=== PATIENT | male | born 1955 | race Caucasian/White ===

== ENCOUNTER 2017-11-01 12:03 | Inpatient (IN) | payer OTHER ==
[2017-11-01 12:14] VITALS: BMI 34.2
--- NOTE | 2017-11-01 14:22 | HP ---
CIWA Score - CIWA Score Nausea/Vomitin Muscle Tremors: 3 Anxiety: 3 Agitation: 3 Paroxysmal Sweats: 1-Minimal Palms Moist Orientation: 0-Oriented Tacttile Disturbances: 2-Mild Itch/Numbness/Burn Auditory Disturbances: 2-Mild Harshness/Frighten Visual Disturbances: 0-None Headache: 2-Mild CIWA-Ar Total Score: 19 Admission ROS BHS - HPI Chief Complaint: i need help to stop drinking alcohol Allergies/Adverse Reactions: Allergies Allergy/AdvReac Type Severity Reaction Status Date / Time Iodinated Contrast- Oral and Allergy Severe Verified 11/01/17 14:51 IV Dye IV dye Allergy Severe Rash Uncoded 11/01/17 12:55 History of Present Illness: this 62 years old male with alcohol dependence,seeking detox,last treatment 08/13 to 06/10/15 [facility] not completed syncope htn,type 2 dm,bipolar disorder,asthma,hypercholesteolemia longest period of sobriety 2 years - Ebola screening Have you traveled outside of the country in the last 21 days: No Have you had contact with anyone from an Ebola affected area: No Have you been sick,other than usual withdrawal symptoms: No Do you have a fever: No - Review of Systems Constitutional: Loss of Appetite, Malaise, Night Sweats, Changes in sleep, Weakness EENT: reports: Nose Congestion Respiratory: reports: No Symptoms reported, Other (asthma hisotory) Cardiac: reports: No Symptoms Reported GI: reports: Diarrhea, Nausea, Vomiting, Abdominal cramping : reports: No Symptoms Reported Musculoskeletal: reports: Back Pain, Muscle Pain Integumentary: reports: Dryness Neuro: reports: Headache, Tremors Endocrine: reports: No Symptoms Reported Hematology: reports: No Symptoms Reported Psychiatric: reports: other (bipoloar disorder) Patient History - Patient Medical History Hx Anemia: No Hx Asthma: Yes Hx Chronic Obstructive Pulmonary Disease (COPD): No Hx Cancer: No Hx Cardiac Disorders: No Hx Congestive Heart Failure: No Hx Hypertension: Yes Hx Hypercholesterolemia: Yes (ON CRESTOR 10 MG HS) Hx Pacemaker: No HX Cerebrovascular Accident: No Hx Seizures: No Hx Dementia: No Hx Diabetes: Yes (NIDDM) Hx Gastrointestinal Disorders: No Hx Liver Disease: No Hx Genitourinary Disorders: No Hx Sexually Transmitted Disorders: No Hx Renal Disease (ESRD): No Hx Thyroid Disease: No Hx Human Immunodeficiency Virus (HIV): No (NEGATIVE HX last 2015) Hx Hepatitis C: No (REQUESTS TESTING ) Hx Depression: Yes Hx Suicide Attempt: No Hx Bipolar Disorder: Yes (seroquel 100mg hs) Hx Schizophrenia: No Other Medical History: no suicidal,no homicidal - Patient Surgical History Past Surgical History: Yes Hx Neurologic Surgery: No Hx Cataract Extraction: No Hx Cardiac Surgery: No Hx Lung Surgery: No Hx Breast Surgery: No Hx Breast Biopsy: No Hx Abdominal Surgery: Yes (bilateral inguinal hernia reapir in [facility] in 1984) Hx Appendectomy: Yes (1984 2 [facility]) Hx Cholecystectomy: No Hx Genitourinary Surgery: No Hx Section: No Hx Orthopedic Surgery: No Other Surgical History: left ankle surgery with titanium plate 2009 @ [facility] Anesthesia Reaction: No - PPD History Previous Implant?: Yes Documented Results: Negative w/proof Implanted On Prior [facility] Admission?: Yes Date: 12/03/14 Results: 0 mm PPD to be Administered?: Yes - Smoking Cessation Smoking history: Never smoked Have you smoked in the past 12 months: No Aproximately how many cigarettes per day: 0 Cigars Per Day: 0 Hx Chewing Tobacco Use: No Initiated information on smoking cessation: No - Substance & Tx. History Hx Alcohol Use: Yes Hx Substance Use: No Substance Use Type: Alcohol Hx Substance Use Treatment: Yes ([facility] 06/08/15 to 06/10/15) - Substances Abused Alcohol-beer Route: Oral Frequency: Daily Amount used: 2-6 pks. Age of first use: 14 Date of Last Use: 11/01/17 Family Disease History - Family Disease History Family Disease History: Diabetes: Mother (,lung cancer), Heart Disease: Father (), Mother, CA: Mother, Respiratory: Daughter, Other: Brother ( alcohol dependent ), Sister (alcohol dependent ) Admission Physical Exam BHS - Vital Signs Vital Signs: Vital Signs - 24 hr 11/01/17 12:07 Temperature 97.9 F Pulse Rate 113 H Respiratory 18 Rate Blood Pressure 157/100 - Physical General Appearance: Yes: Moderate Distress, Tremorous, Irritable, Sweating, Anxious HEENTM: Yes: Within Normal Limits, REED, Pharynx Normal Respiratory: Yes: Lungs Clear, Normal Breath Sounds, No Respiratory Distress, Other (asthma hstory) Neck: Yes: Within Normal Limits, Supple, Trachea in good position Breast: Yes: Within Normal Limits Cardiology: Yes: Within Normal Limits, Regular Rhythm, Regular Rate, S1, S2 Abdominal: Yes: Within Normal Limits, Normal Bowel Sounds, Non Tender, Flat, Soft, Surgical Scar Genitourinary: Yes: Within Normal Limits Back: Yes: Muscle Spasm Musculoskeletal: Yes: full range of Motion, Back pain, Muscle Pain Extremities: Yes: Tremors 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 NML intact, Fully Oriented, Alert, Motor Strength 5/5 Integumentary: Yes: Dry Lymphatic: Yes: Within Normal Limits - Diagnostic (1) Alcohol dependence with uncomplicated withdrawal Current Visit: Yes Status: Acute (2) HTN (hypertension) Current Visit: No Status: Chronic (3) Hyperlipidemia Current Visit: No Status: Chronic (4) Obesity Current Visit: No Status: Chronic (5) Type 2 diabetes mellitus Current Visit: No Status: Chronic Comment: (6) Asthma Current Visit: No Status: Chronic (7) Hypercholesterolemia Current Visit: Yes Status: Acute (8) Bipolar disorder (manic depression) Current Visit: Yes Status: Acute Cleared for Admission [facility] - Detox or Rehab [facility] Level of Care: Medically Managed Detox Regimen/Protocol: Librium [facility] Breath Alcohol Content Breath Alcohol Content: 0.045 Urine Drug Screen - Results Drug Screen Negative: No Urine Drug Screen Results: BZO-Benzodiazepines
[2017-11-01] MEDS ORDERED: MAGNESIUM CITRATE 300 ML BOTTLE PO PRN (14:36)
[2017-11-01] MEDS ORDERED: IBUPROFEN 400 MG TABLET (FP) PO PRN (14:36)
[2017-11-01] MEDS ORDERED: LOPERAMIDE HCL 2 MG CAPSULE PO PRN (14:36)
[2017-11-01] MEDS ORDERED: P-EPHED 60MG/TRIPROLIDI 2.5MG TABLET PO PRN (14:36)
[2017-11-01] MEDS ORDERED: ACETAMINOPHEN 325 MG TABLET (FP) PO PRN (14:36)
[2017-11-01] MEDS ORDERED: MAG HYDROX/AL HYDROX/SIMETH 30 ML UNIT-DOSE CUP PO PRN (14:36)
[2017-11-01] MEDS ORDERED: MAGNESIUM HYDROX 2400MG/30ML ORAL SUSPENSION 30 ML CUP PO PRN (14:36)
[2017-11-01] MEDS ORDERED: guaiFENesin/D-METHORPHAN HB 10 ML UNIT-DOSE CUPS PO PRN (14:36)
[2017-11-01] MEDS ORDERED: hydrOXYzine PAMOATE 50 MG CAPSULE (FP) PO PRN (14:36)
[2017-11-01] MEDS ORDERED: MENTHOL/PHENOL 1 EACH UD MM PRN (14:36)
[2017-11-01] MEDS ORDERED: chlordiazePOXIDE HCL 25 MG CAPSULE PO PRN (14:36)
[2017-11-01] MEDS: metFORMIN HCL 500 MG TABLET (FP) PO SCH (18:45)
[2017-11-01] MEDS: chlordiazePOXIDE HCL 25 MG CAPSULE PO SCH ×2 (18:46→22:13)
[2017-11-01 18:52] LABS: URINE APPEARANCE SLCLOUDY; URINE BILIRUBIN NEGATIVE (NEGATIVE); URINE BLOOD 1+ (NEGATIVE); URINE COLOR LTYELLOW; URINE GLUCOSE (UA) 1+ (NEGATIVE); URINE KETONE NEGATIVE (NEGATIVE); URINE LEUK ESTERASE NEGATIVE (NEGATIVE); URINE NITRITE NEGATIVE (NEGATIVE); URINE PROTEIN NEGATIVE (NEGATIVE); URINE UROBILINOGEN NEGATIVE mg/dL (0.2-1.0)
[2017-11-01] MEDS: LISINOPRIL 20 MG TABLET (FP) PO SCH (20:10)
[2017-11-01 20:28] LABS: URINE MUCUS RARE
[2017-11-01] MEDS: THIAMINE HCL 100 MG TABLET (FP) PO SCH (22:13)
[2017-11-01] MEDS: ROSUVASTATIN CA 10 MG TABLET (FP) PO SCH (22:13)
[2017-11-02] MEDS: chlordiazePOXIDE HCL 25 MG CAPSULE PO SCH ×4 (05:40→22:13)
[2017-11-02] MEDS: metFORMIN HCL 500 MG TABLET (FP) PO SCH ×2 (07:19→17:14)
--- NOTE | 2017-11-02 09:33 | CONSULT ---
[facility] Psychiatric Consult - Data Date of interview: 11/02/17 Admission source: [facility] Identifying data: Pt. is a 62 year male, father of two, a and on SSI. This is one of multiple admissions for patient. Pt. admitted to for alcohol dependence. Substance Abuse History: Alcohol- First used: 14 Frequency: Daily Amount: 2-6 24oz beers Last used: 11/01/2017 Medical History: Hypertension, Asthma, CHF, Hypercholesterolemia, diabetes, bilateral inguinal hernia repair in 1984, Left ankle surgery with titanium plate in 2009. Psychiatric History: Patient's first encounter with a psychiatrist was in 1971 at [facility] after his girlfriend left him and patient attempted to jump out the window. Pt. reports another suicide attempt in 1978 in which he again attempted to jump out the window after another women left him. States he has also been admitted to [facility], [facility], and [facility] . States he was diagnosed with bipolar disorder and schizophrenia at [facility] in 2006. Claims he is currently seeing a psychiatrist at [facility] and is prescribed seroquel 50mg qhs. Pt. refuses to resume seroquel at this time. Pt stated, " i want to get everything else out my system." Pt. also reports a h/o incarceration for 15 years. Pt. currently denies suicidal and homicidal ideation. Physical/Sexual Abuse/Trauma History: Denies. Mental Status Exam - Mental Status Exam Alert and Oriented to: Time, Place, Person Cognitive Function: Good Patient Appearance: Well Groomed Mood: Hopeful Affect: Mood Congruent Patient Behavior: Appropriate, Cooperative Speech Pattern: Appropriate Voice Loudness: Normal Thought Process: Goal Oriented Thought Disorder: Not Present Hallucinations: Denies Suicidal Ideation: Denies Homicidal Ideation: Denies Insight/Judgement: Poor Sleep: Fair Appetite: Fair Muscle strength/Tone: Mild Hypertonicity Gait/Station: Antalgic Psychiatric Findings - Problem List ([place] 1, 2,3) (1) Alcohol dependence with uncomplicated withdrawal Current Visit: Yes Status: Acute (2) Alcohol dependence Current Visit: Yes Status: Acute (3) Alcohol dependence, continuous Current Visit: Yes Status: Acute (4) Bipolar disorder Current Visit: No Status: Chronic Comment: Self reports (5) Schizophrenia Current Visit: No Status: Chronic Comment: Self reports. - Initial Treatment Plan Initial Treatment Plan: Psychoeducation provided. Detoxification in progress. Pt. refuses to resume seroquel 50mg qhs at this time. Will continue to monitor.
[2017-11-02 09:46] LABS: CHLORIDE 100 mmol/L (98-107); POTASSIUM 3.7 mmol/L (3.5-5.1); SODIUM 135 mmol/L (136-145)
[2017-11-02 09:54] LABS: ALBUMIN 4.2 g/dl (3.4-5.0); ALK PHOS 106 U/L (45-117); ANION GAP 11 (8-16); BILIRUBIN,TOTAL 0.9 mg/dL (0.2-1.0); BLOOD UREA NITROGEN 9 mg/dL (7-18); CALCIUM 8.3 mg/dL (8.5-10.1); CO2 24 mmol/L (21-32); CREATININE 0.8 mg/dL (0.7-1.3); GLUCOSE,RANDOM 150 mg/dL (74-106); SGOT/AST 50 U/L (15-37); SGPT/ALT 42 U/L (12-78); TOT PROT 7.8 g/dl (6.4-8.2)
[2017-11-02] MEDS ORDERED: amLODIPine BESYLATE 10 MG TABLET (FP) PO SCH (10:00)
[2017-11-02 10:21] LABS: HEMATOCRIT 45.6 % (35.4-49); HEMOGLOBIN 15.3 GM/dL (11.7-16.9); MCH 31.4 pg (25.7-33.7); MCHC 33.7 g/dl (32.0-35.9); MEAN CELL VOLUME 93.4 fl (80-96); MEAN PLT VOLUME 7.7 fl (7.5-11.1); PLATELET COUNT 278 K/MM3 (134-434); RBC 4.87 M/mm3 (4.00-5.60); RDW 12.5 % (11.9-15.9); WHITE BLOOD COUNT 7.5 K/mm3 (4.0-10.0)
[2017-11-02] MEDS: LISINOPRIL 20 MG TABLET (FP) PO SCH (10:24)
[2017-11-02] MEDS: ALBUTEROL SO4 18 GM HFA INHALER IH PRN (10:24)
[2017-11-02] MEDS: amLODIPine BESYLATE 10 MG TABLET (FP) PO SCH (10:24)
[2017-11-02] MEDS: ASPIRIN 81 MG CHEWABLE TABLETS PO SCH (10:24)
[2017-11-02] MEDS: PRENATAL VITAMINS W/ FOLIC ACID TABLET (FP) PO SCH (10:24)
--- NOTE | 2017-11-02 10:25 | PN ---
[facility] CIWA - CIWA Score Nausea/Vomitin-No Nausea/No Vomiting Muscle Tremors: 4-Moderate,w/Arms Extend Anxiety: 4-Mod. Anxious/Guarded Agitation: 4-Moderately Restless Paroxysmal Sweats: 1-Minimal Palms Moist Orientation: 0-Oriented Tacttile Disturbances: 3-Moderate Itch/Numb/Burn Auditory Disturbances: 0-None Visual Disturbances: 0-None Headache: 0-None Present CIWA-Ar Total Score: 16 BHS Progress Note (SOAP) Subjective: ANXIETY, SWEATS,TREMORS,MUSCLE/BODY ACHES, INTERMITTENT SLEEP. Objective: 11/02/17 10:24 Vital Signs Temperature 96.9 F L 11/02/17 08:51 Pulse Rate 100 H 11/02/17 08:51 Respiratory Rate 18 11/02/17 08:51 Blood Pressure 150/91 11/02/17 08:51 O2 Sat by Pulse Oximetry (%) Laboratory Last Values Sodium 135 mmol/L (136-145) L 11/02/17 05:45 Potassium 3.7 mmol/L (3.5-5.1) 11/02/17 05:45 Chloride 100 mmol/L (98-107) 11/02/17 05:45 Carbon Dioxide 24 mmol/L (21-32) 11/02/17 05:45 Anion Gap 11 (8-16) 11/02/17 05:45 BUN 9 mg/dL (7-18) D 11/02/17 05:45 Creatinine 0.8 mg/dL (0.7-1.3) 11/02/17 05:45 Creat Clearance w eGFR > 60 (>60) 11/02/17 05:45 POC Glucometer 219 UNITS (80-120) 11/02/17 05:42 Random Glucose 150 mg/dL (74-106) H D 11/02/17 05:45 Calcium 8.3 mg/dL (8.5-10.1) L 11/02/17 05:45 Total Bilirubin 0.9 mg/dL (0.2-1.0) D 11/02/17 05:45 AST 50 U/L (15-37) H D 11/02/17 05:45 ALT 42 U/L (12-78) D 11/02/17 05:45 Alkaline Phosphatase 106 U/L (45-117) D 11/02/17 05:45 Total Protein 7.8 g/dl (6.4-8.2) 11/02/17 05:45 Albumin 4.2 g/dl (3.4-5.0) 11/02/17 05:45 Urine Color Ltyellow 11/01/17 15:40 Urine Appearance Slcloudy 11/01/17 15:40 Urine pH 5.0 (5.0-8.0) 11/01/17 15:40 Ur Specific [place] 1.009 (1.001-1.035) 11/01/17 15:40 Urine Protein Negative (NEGATIVE) 11/01/17 15:40 Urine Glucose (UA) 1+ (NEGATIVE) H 11/01/17 15:40 Urine Ketones Negative (NEGATIVE) 11/01/17 15:40 Urine Blood 1+ (NEGATIVE) H 11/01/17 15:40 Urine Nitrite Negative (NEGATIVE) 11/01/17 15:40 Urine Bilirubin Negative (NEGATIVE) 11/01/17 15:40 Urine Urobilinogen Negative mg/dL (0.2-1.0) 11/01/17 15:40 Ur Leukocyte Esterase Negative (NEGATIVE) 11/01/17 15:40 Urine WBC (Auto) <1 /hpf (3-5) 11/01/17 15:40 Urine RBC (Auto) None /hpf (0-3) 11/01/17 15:40 Urine Mucus Rare 11/01/17 15:40 Assessment: 11/02/17 10:25 WITHDRAWAL SX Plan: CONTINUE DETOX
[2017-11-02] MEDS ORDERED: FLU VACCINE QUAD 60 MCG/0.5 ML (MDV 17-18) IM ONE (12:00)
--- NOTE | 2017-11-02 12:34 | EKG ---
Test Reason : Blood Pressure : / mmHG Vent. Rate : 098 BPM Atrial Rate : 098 BPM P-R Int : 142 ms QRS Dur : 092 ms QT Int : 368 ms P-R-T Axes : 062 -50 049 degrees QTc Int : 469 ms NORMAL SINUS RHYTHM INCOMPLETE RIGHT BUNDLE BRANCH BLOCK LEFT ANTERIOR FASCICULAR BLOCK ABNORMAL ECG NO PREVIOUS ECGS AVAILABLE Confirmed by BON ANGULO MD ([id number]) on 11/02/2017 12:34:16 PM Referred By: Confirmed By:BON ANGULO MD
[2017-11-02] MEDS: THIAMINE HCL 100 MG TABLET (FP) PO SCH (22:13)
[2017-11-02] MEDS: ROSUVASTATIN CA 10 MG TABLET (FP) PO SCH (22:13)
[2017-11-03] MEDS: ALBUTEROL SO4 18 GM HFA INHALER IH PRN ×3 (02:21→17:19)
[2017-11-03] MEDS: chlordiazePOXIDE HCL 25 MG CAPSULE PO SCH ×2 (05:13→10:21)
[2017-11-03] MEDS: metFORMIN HCL 500 MG TABLET (FP) PO SCH ×2 (07:17→17:17)
[2017-11-03] MEDS: ASPIRIN 81 MG CHEWABLE TABLETS PO SCH (10:20)
[2017-11-03] MEDS: PRENATAL VITAMINS W/ FOLIC ACID TABLET (FP) PO SCH (10:20)
[2017-11-03] MEDS: amLODIPine BESYLATE 10 MG TABLET (FP) PO SCH (10:21)
[2017-11-03] MEDS: LISINOPRIL 20 MG TABLET (FP) PO SCH ×2 (10:21→22:15)
--- NOTE | 2017-11-03 11:54 | PN ---
[facility] CIWA - CIWA Score Nausea/Vomitin-No Nausea/No Vomiting Muscle Tremors: 4-Moderate,w/Arms Extend Anxiety: 4-Mod. Anxious/Guarded Agitation: 4-Moderately Restless Paroxysmal Sweats: 1-Minimal Palms Moist Tacttile Disturbances: 3-Moderate Itch/Numb/Burn Auditory Disturbances: 0-None Visual Disturbances: 0-None Headache: 1-Very Mild BHS Progress Note (SOAP) Subjective: ANXIETY,SWEATS,LIGHTHEADED, FATIGUE. Objective: 11/03/17 11:53 Vital Signs Temperature 97.7 F 11/03/17 09:25 Pulse Rate 110 H 11/03/17 09:25 Respiratory Rate 20 11/03/17 09:25 Blood Pressure 175/95 11/03/17 09:25 O2 Sat by Pulse Oximetry (%) Laboratory Last Values WBC 7.5 K/mm3 (4.0-10.0) 11/02/17 05:45 RBC 4.87 M/mm3 (4.00-5.60) 11/02/17 05:45 Hgb 15.3 GM/dL (11.7-16.9) 11/02/17 05:45 Hct 45.6 % (35.4-49) 11/02/17 05:45 MCV 93.4 fl (80-96) 11/02/17 05:45 MCH 31.4 pg (25.7-33.7) 11/02/17 05:45 MCHC 33.7 g/dl (32.0-35.9) 11/02/17 05:45 RDW 12.5 % (11.9-15.9) 11/02/17 05:45 Plt Count 278 K/MM3 (134-434) 11/02/17 05:45 MPV 7.7 fl (7.5-11.1) 11/02/17 05:45 Sodium 135 mmol/L (136-145) L 11/02/17 05:45 Potassium 3.7 mmol/L (3.5-5.1) 11/02/17 05:45 Chloride 100 mmol/L (98-107) 11/02/17 05:45 Carbon Dioxide 24 mmol/L (21-32) 11/02/17 05:45 Anion Gap 11 (8-16) 11/02/17 05:45 BUN 9 mg/dL (7-18) D 11/02/17 05:45 Creatinine 0.8 mg/dL (0.7-1.3) 11/02/17 05:45 Creat Clearance w eGFR > 60 (>60) 11/02/17 05:45 POC Glucometer 168 UNITS (80-120) 11/03/17 05:12 Random Glucose 150 mg/dL (74-106) H D 11/02/17 05:45 Calcium 8.3 mg/dL (8.5-10.1) L 11/02/17 05:45 Total Bilirubin 0.9 mg/dL (0.2-1.0) D 11/02/17 05:45 AST 50 U/L (15-37) H D 11/02/17 05:45 ALT 42 U/L (12-78) D 11/02/17 05:45 Alkaline Phosphatase 106 U/L (45-117) D 11/02/17 05:45 Total Protein 7.8 g/dl (6.4-8.2) 11/02/17 05:45 Albumin 4.2 g/dl (3.4-5.0) 11/02/17 05:45 Urine Color Ltyellow 11/01/17 15:40 Urine Appearance Slcloudy 11/01/17 15:40 Urine pH 5.0 (5.0-8.0) 11/01/17 15:40 Ur Specific [place] 1.009 (1.001-1.035) 11/01/17 15:40 Urine Protein Negative (NEGATIVE) 11/01/17 15:40 Urine Glucose (UA) 1+ (NEGATIVE) H 11/01/17 15:40 Urine Ketones Negative (NEGATIVE) 11/01/17 15:40 Urine Blood 1+ (NEGATIVE) H 11/01/17 15:40 Urine Nitrite Negative (NEGATIVE) 11/01/17 15:40 Urine Bilirubin Negative (NEGATIVE) 11/01/17 15:40 Urine Urobilinogen Negative mg/dL (0.2-1.0) 11/01/17 15:40 Ur Leukocyte Esterase Negative (NEGATIVE) 11/01/17 15:40 Urine WBC (Auto) <1 /hpf (3-5) 11/01/17 15:40 Urine RBC (Auto) None /hpf (0-3) 11/01/17 15:40 Urine Mucus Rare 11/01/17 15:40 RPR Titer Nonreactive (NONREACTIVE) 11/02/17 05:45 Hepatitis C Antibody <0.1 s/co ratio (0.0-0.9) 11/01/17 15:00 Assessment: 11/03/17 11:53 WITHDRAWAL SX Plan: CONTINUE DETOX INCREASE PO FLUIDS.
[2017-11-03] MEDS: chlordiazePOXIDE 5 MG CAPSULE PO SCH ×2 (17:17→22:16)
[2017-11-03] MEDS: THIAMINE HCL 100 MG TABLET (FP) PO SCH (22:15)
[2017-11-03] MEDS: ROSUVASTATIN CA 10 MG TABLET (FP) PO SCH (22:15)
[2017-11-04] MEDS: chlordiazePOXIDE 5 MG CAPSULE PO SCH ×2 (05:23→10:09)
--- NOTE | 2017-11-04 07:34 | PN ---
[facility] Progress Note Note: Patient was seen and evaluated at bedside. He complained of burning in his chest / chest pain radiating to his stomach after he took his medication and worsened when he lay down in his bed. Denies radiation to his arm, SOB, dizziness or any other symptom. EKG ordered and was normal sinus rhythm. Mylanta given as ordered with relieve verbalized by patient.
[2017-11-04] MEDS: metFORMIN HCL 500 MG TABLET (FP) PO SCH ×2 (07:55→17:26)
[2017-11-04] MEDS: amLODIPine BESYLATE 10 MG TABLET (FP) PO SCH (10:09)
[2017-11-04] MEDS: ASPIRIN 81 MG CHEWABLE TABLETS PO SCH (10:09)
[2017-11-04] MEDS: LISINOPRIL 20 MG TABLET (FP) PO SCH ×2 (10:09→22:22)
[2017-11-04] MEDS: PRENATAL VITAMINS W/ FOLIC ACID TABLET (FP) PO SCH (10:09)
[2017-11-04] MEDS: ALBUTEROL SO4 18 GM HFA INHALER IH PRN (10:47)
--- NOTE | 2017-11-04 13:37 | EKG ---
Test Reason : Blood Pressure : / mmHG Vent. Rate : 084 BPM Atrial Rate : 084 BPM P-R Int : 150 ms QRS Dur : 080 ms QT Int : 382 ms P-R-T Axes : 057 -37 066 degrees QTc Int : 451 ms NORMAL SINUS RHYTHM LEFT AXIS DEVIATION ABNORMAL ECG WHEN COMPARED WITH ECG OF 01-NOV-2017 19:50, NONSPECIFIC T WAVE ABNORMALITY NOW EVIDENT IN LATERAL LEADS Confirmed by LEIDY CANO MD ([id number]) on 11/04/2017 1:37:15 PM Referred By: Confirmed By:LEIDY CANO MD
--- NOTE | 2017-11-04 13:48 | PN ---
S Progress Note (SOAP) Subjective: Mild epigastric discomfort, sleep interruption Objective: 11/04/17 13:48 Vital Signs 11/04/17 11/04/17 06:20 09:47 Temperature 98.3 F 95.5 F L Pulse Rate 80 100 H Respiratory 20 18 Rate Blood Pressure 131/73 137/76 Laboratory Last Values WBC 7.5 K/mm3 (4.0-10.0) 11/02/17 05:45 RBC 4.87 M/mm3 (4.00-5.60) 11/02/17 05:45 Hgb 15.3 GM/dL (11.7-16.9) 11/02/17 05:45 Hct 45.6 % (35.4-49) 11/02/17 05:45 MCV 93.4 fl (80-96) 11/02/17 05:45 MCH 31.4 pg (25.7-33.7) 11/02/17 05:45 MCHC 33.7 g/dl (32.0-35.9) 11/02/17 05:45 RDW 12.5 % (11.9-15.9) 11/02/17 05:45 Plt Count 278 K/MM3 (134-434) 11/02/17 05:45 MPV 7.7 fl (7.5-11.1) 11/02/17 05:45 Sodium 135 mmol/L (136-145) L 11/02/17 05:45 Potassium 3.7 mmol/L (3.5-5.1) 11/02/17 05:45 Chloride 100 mmol/L (98-107) 11/02/17 05:45 Carbon Dioxide 24 mmol/L (21-32) 11/02/17 05:45 Anion Gap 11 (8-16) 11/02/17 05:45 BUN 9 mg/dL (7-18) D 11/02/17 05:45 Creatinine 0.8 mg/dL (0.7-1.3) 11/02/17 05:45 Creat Clearance w eGFR > 60 (>60) 11/02/17 05:45 POC Glucometer 164 UNITS (80-120) 11/04/17 05:24 Random Glucose 150 mg/dL (74-106) H D 11/02/17 05:45 Calcium 8.3 mg/dL (8.5-10.1) L 11/02/17 05:45 Total Bilirubin 0.9 mg/dL (0.2-1.0) D 11/02/17 05:45 AST 50 U/L (15-37) H D 11/02/17 05:45 ALT 42 U/L (12-78) D 11/02/17 05:45 Alkaline Phosphatase 106 U/L (45-117) D 11/02/17 05:45 Total Protein 7.8 g/dl (6.4-8.2) 11/02/17 05:45 Albumin 4.2 g/dl (3.4-5.0) 11/02/17 05:45 Urine Color Ltyellow 11/01/17 15:40 Urine Appearance Slcloudy 11/01/17 15:40 Urine pH 5.0 (5.0-8.0) 11/01/17 15:40 Ur Specific [place] 1.009 (1.001-1.035) 11/01/17 15:40 Urine Protein Negative (NEGATIVE) 11/01/17 15:40 Urine Glucose (UA) 1+ (NEGATIVE) H 11/01/17 15:40 Urine Ketones Negative (NEGATIVE) 11/01/17 15:40 Urine Blood 1+ (NEGATIVE) H 11/01/17 15:40 Urine Nitrite Negative (NEGATIVE) 11/01/17 15:40 Urine Bilirubin Negative (NEGATIVE) 11/01/17 15:40 Urine Urobilinogen Negative mg/dL (0.2-1.0) 11/01/17 15:40 Ur Leukocyte Esterase Negative (NEGATIVE) 11/01/17 15:40 Urine WBC (Auto) <1 /hpf (3-5) 11/01/17 15:40 Urine RBC (Auto) None /hpf (0-3) 11/01/17 15:40 Urine Mucus Rare 11/01/17 15:40 RPR Titer Nonreactive (NONREACTIVE) 11/02/17 05:45 Hepatitis C Antibody <0.1 s/co ratio (0.0-0.9) 11/01/17 15:00 Labs noted Assessment: 11/04/17 13:48 withdrawal sx Plan: continue detox
[2017-11-04] MEDS: chlordiazePOXIDE HCL 10 MG CAPSULE PO SCH ×2 (17:26→22:22)
[2017-11-04] MEDS: THIAMINE HCL 100 MG TABLET (FP) PO SCH (22:21)
[2017-11-04] MEDS: ROSUVASTATIN CA 10 MG TABLET (FP) PO SCH (22:22)
[2017-11-05] MEDS: chlordiazePOXIDE HCL 10 MG CAPSULE PO SCH (05:38)
[2017-11-05 06:21] VITALS: BP 148/75; PULSE 92; TEMP 97.3
[2017-11-05] MEDS: metFORMIN HCL 500 MG TABLET (FP) PO SCH (06:41)
--- NOTE | 2017-11-05 09:17 | DS ---
[facility] Detox Discharge Summary Admission Date: 11/01/17 Discharge Date: 11/05/17 - History Present History: Alcohol Dependence Pertinent Past History: HTN Type II DM Hyperlipidemia Asthma Hx. of Psych disorder - Physical Exam Results Vital Signs: Vital Signs Temperature 97.3 F L 11/05/17 06:20 Pulse Rate 92 H 11/05/17 06:20 Respiratory Rate 18 11/05/17 06:20 Blood Pressure 148/75 11/05/17 06:20 O2 Sat by Pulse Oximetry (%) Pertinent Admission Physical Exam Findings: Withdrawal sx. Laboratory Last Values WBC 7.5 K/mm3 (4.0-10.0) 11/02/17 05:45 RBC 4.87 M/mm3 (4.00-5.60) 11/02/17 05:45 Hgb 15.3 GM/dL (11.7-16.9) 11/02/17 05:45 Hct 45.6 % (35.4-49) 11/02/17 05:45 MCV 93.4 fl (80-96) 11/02/17 05:45 MCH 31.4 pg (25.7-33.7) 11/02/17 05:45 MCHC 33.7 g/dl (32.0-35.9) 11/02/17 05:45 RDW 12.5 % (11.9-15.9) 11/02/17 05:45 Plt Count 278 K/MM3 (134-434) 11/02/17 05:45 MPV 7.7 fl (7.5-11.1) 11/02/17 05:45 Sodium 135 mmol/L (136-145) L 11/02/17 05:45 Potassium 3.7 mmol/L (3.5-5.1) 11/02/17 05:45 Chloride 100 mmol/L (98-107) 11/02/17 05:45 Carbon Dioxide 24 mmol/L (21-32) 11/02/17 05:45 Anion Gap 11 (8-16) 11/02/17 05:45 BUN 9 mg/dL (7-18) D 11/02/17 05:45 Creatinine 0.8 mg/dL (0.7-1.3) 11/02/17 05:45 Creat Clearance w eGFR > 60 (>60) 11/02/17 05:45 POC Glucometer 212 UNITS (80-120) 11/05/17 05:37 Random Glucose 150 mg/dL (74-106) H D 11/02/17 05:45 Calcium 8.3 mg/dL (8.5-10.1) L 11/02/17 05:45 Total Bilirubin 0.9 mg/dL (0.2-1.0) D 11/02/17 05:45 AST 50 U/L (15-37) H D 11/02/17 05:45 ALT 42 U/L (12-78) D 11/02/17 05:45 Alkaline Phosphatase 106 U/L (45-117) D 11/02/17 05:45 Total Protein 7.8 g/dl (6.4-8.2) 11/02/17 05:45 Albumin 4.2 g/dl (3.4-5.0) 11/02/17 05:45 Urine Color Ltyellow 11/01/17 15:40 Urine Appearance Slcloudy 11/01/17 15:40 Urine pH 5.0 (5.0-8.0) 11/01/17 15:40 Ur Specific [place] 1.009 (1.001-1.035) 11/01/17 15:40 Urine Protein Negative (NEGATIVE) 11/01/17 15:40 Urine Glucose (UA) 1+ (NEGATIVE) H 11/01/17 15:40 Urine Ketones Negative (NEGATIVE) 11/01/17 15:40 Urine Blood 1+ (NEGATIVE) H 11/01/17 15:40 Urine Nitrite Negative (NEGATIVE) 11/01/17 15:40 Urine Bilirubin Negative (NEGATIVE) 11/01/17 15:40 Urine Urobilinogen Negative mg/dL (0.2-1.0) 11/01/17 15:40 Ur Leukocyte Esterase Negative (NEGATIVE) 11/01/17 15:40 Urine WBC (Auto) <1 /hpf (3-5) 11/01/17 15:40 Urine RBC (Auto) None /hpf (0-3) 11/01/17 15:40 Urine Mucus Rare 11/01/17 15:40 RPR Titer Nonreactive (NONREACTIVE) 11/02/17 05:45 Hepatitis C Antibody <0.1 s/co ratio (0.0-0.9) 11/01/17 15:00 Labs noted - Treatment Hospital Course: Detox Protocol Followed, Detoxed Safely, Responded well, Discharged Condition Good, Rehab Referral Accepted Patient has Accepted a Rehab Referral to: [facility] at [facility] - Medication Discharge Medications: Ambulatory Orders Albuterol Sulfate Inhaler - [Ventolin HFA Inhaler -] 2 inh PO Q4H PRN 08/14/14 Quetiapine Fumarate [Seroquel -] 50 mg PO HS #30 tablet 03/02/15 Aspirin [ASA -] 81 mg PO DAILY 06/08/15 Rosuvastatin [Crestor -] 10 mg PO HS 06/08/15 Amlodipine Besylate [Norvasc -] 10 mg PO DAILY 11/01/17 Metformin HCl [Glucophage -] 500 mg PO BID 11/01/17 - Diagnosis (1) Asthma Current Visit: No Status: Chronic (2) Bipolar disorder Current Visit: No Status: Chronic (3) Hyperlipidemia Current Visit: No Status: Chronic Qualifiers: Hyperlipidemia type: unspecified Qualified Code(s): E78.5 - Hyperlipidemia , unspecified (4) HTN (hypertension) Current Visit: Yes Status: Chronic Qualifiers: Hypertension type: essential hypertension Qualified Code(s): I10 - Essential (primary) hypertension (5) Type 2 diabetes mellitus Current Visit: Yes Status: Chronic Qualifiers: Diabetes mellitus complication status: without complication Diabetes mellitus siding applicator insulin use: without intermediate use Qualified Code(s): E11.9 - Type 2 diabetes mellitus without complications (6) Alcohol dependence with uncomplicated withdrawal Current Visit: Yes Status: Acute (7) Schizophrenia Current Visit: No Status: Chronic - AMA Did Patient Leave Against Medical Advice: No
== END 2017-11-05 09:58 | disposition home or self-care (01) | DRG 775 ==
LOC: YASAS 12:03 → Y3N 14:44
PROVIDERS: ADMIT Internal Medicine; ATTEND Internal Medicine
PROC: HZ2ZZZZ Detoxification Services for Substance Abuse Treatment (ICD-10-PCS; principal; 2017-11-01)
DX: F10.230 Alcohol dependence with withdrawal, uncomplicated (principal); F31.9 Bipolar disorder, unspecified; F25.9 Schizoaffective disorder, unspecified; I10 Essential (primary) hypertension; E78.5 Hyperlipidemia, unspecified; E11.9 Type 2 diabetes mellitus without complications; Z79.84 Long term (current) use of oral hypoglycemic drugs
CPT/HCPCS: 36415; 80053; 81003; 81015; 82962; 85027; 86593; 86803; 90688; 93005; 93010

== ENCOUNTER 2018-09-09 14:43 | Inpatient (IN) | payer OTHER ==
--- NOTE | 2018-09-09 15:20 | HP ---
CIWA Score - Admission Criteria OASAS Guidelines: Admission for Medically Managed Detox: Requires at least one of the followin. CIWA greater than 12 2. Seizures within the past 24 hours 3. Delirium tremens within the past 24 hours 4. Hallucinations within the past 24 hours 5. Acute intervention needed for co occurring medical disorder 6. Acute intervention needed for co occurring psychiatric disorder 7. Severe withdrawal that cannot be handled at a lower level of care (continued vomiting, continued diarrhea, abnormal vital signs) requiring intravenous medication and/or fluids 8. Admission ROS S - HPI Allergies/Adverse Reactions: Allergies Allergy/AdvReac Type Severity Reaction Status Date / Time Iodinated Contrast- Oral and Allergy Severe Verified 11/01/17 14:51 IV Dye IV dye Allergy Severe Rash Uncoded 11/01/17 12:55 Patient History - Patient Medical History Hx Anemia: No Hx Asthma: Yes Hx Chronic Obstructive Pulmonary Disease (COPD): No Hx Cancer: No Hx Cardiac Disorders: No Hx Congestive Heart Failure: No Hx Hypertension: Yes Hx Hypercholesterolemia: Yes (ON CRESTOR 10 MG HS) Hx Pacemaker: No HX Cerebrovascular Accident: No Hx Seizures: No Hx Dementia: No Hx Diabetes: Yes (NIDDM) Hx Gastrointestinal Disorders: No Hx Liver Disease: No Hx Genitourinary Disorders: No Hx Sexually Transmitted Disorders: No Hx Renal Disease (ESRD): No Hx Thyroid Disease: No Hx Human Immunodeficiency Virus (HIV): No (NEGATIVE HX last 2015) Hx Hepatitis C: No (REQUESTS TESTING ) Hx Depression: Yes Hx Suicide Attempt: No Hx Bipolar Disorder: Yes (seroquel 100mg hs) Hx Schizophrenia: No - Patient Surgical History Past Surgical History: Yes Hx Neurologic Surgery: No Hx Cataract Extraction: No Hx Cardiac Surgery: No Hx Lung Surgery: No Hx Breast Surgery: No Hx Breast Biopsy: No Hx Abdominal Surgery: Yes (bilateral inguinal hernia reapir in [facility] in 1984) Hx Appendectomy: Yes (1984 2 [facility]) Hx Cholecystectomy: No Hx Genitourinary Surgery: No Hx Section: No Hx Orthopedic Surgery: No Other Surgical History: left ankle surgery with titanium plate 2009 @ [facility] Anesthesia Reaction: No - PPD History Date: 12/03/14 Results: 0 mm - Smoking Cessation Smoking history: Never smoked Have you smoked in the past 12 months: No Aproximately how many cigarettes per day: 0 Cigars Per Day: 0 Hx Chewing Tobacco Use: No Family Disease History - Family Disease History Family Disease History: Diabetes: Mother (,lung cancer), Heart Disease: Father (), Mother, CA: Mother, Respiratory: Daughter, Other: Brother ( alcohol dependent ), Sister (alcohol dependent ) [facility] Breath Alcohol Content Breath Alcohol Content: 0.045
--- NOTE | 2018-09-09 15:27 | HP ---
CIWA Score Nausea/Vomitin Muscle Tremors: 2 Anxiety: 2 Agitation: 2 - Admission Criteria OASAS Guidelines: Admission for Medically Managed Detox: Requires at least one of the followin. CIWA greater than 12 2. Seizures within the past 24 hours 3. Delirium tremens within the past 24 hours 4. Hallucinations within the past 24 hours 5. Acute intervention needed for co occurring medical disorder 6. Acute intervention needed for co occurring psychiatric disorder 7. Severe withdrawal that cannot be handled at a lower level of care (continued vomiting, continued diarrhea, abnormal vital signs) requiring intravenous medication and/or fluids 8. Admission ROS [facility] - HPI Allergies/Adverse Reactions: Allergies Allergy/AdvReac Type Severity Reaction Status Date / Time Iodinated Contrast- Oral and Allergy Severe Verified 11/01/17 14:51 IV Dye IV dye Allergy Severe Rash Uncoded 11/01/17 12:55 Patient History - Patient Medical History Hx Anemia: No Hx Asthma: Yes Hx Chronic Obstructive Pulmonary Disease (COPD): No Hx Cancer: No Hx Cardiac Disorders: No Hx Congestive Heart Failure: No Hx Hypertension: Yes Hx Hypercholesterolemia: Yes (ON CRESTOR 10 MG HS) Hx Pacemaker: No HX Cerebrovascular Accident: No Hx Seizures: No Hx Dementia: No Hx Diabetes: Yes (NIDDM) Hx Gastrointestinal Disorders: No Hx Liver Disease: No Hx Genitourinary Disorders: No Hx Sexually Transmitted Disorders: No Hx Renal Disease (ESRD): No Hx Thyroid Disease: No Hx Human Immunodeficiency Virus (HIV): No (NEGATIVE HX last 2015) Hx Hepatitis C: No (REQUESTS TESTING ) Hx Depression: Yes Hx Suicide Attempt: No Hx Bipolar Disorder: Yes (seroquel 100mg hs) Hx Schizophrenia: No - Patient Surgical History Past Surgical History: Yes Hx Neurologic Surgery: No Hx Cataract Extraction: No Hx Cardiac Surgery: No Hx Lung Surgery: No Hx Breast Surgery: No Hx Breast Biopsy: No Hx Abdominal Surgery: Yes (bilateral inguinal hernia reapir in [facility] in 1984) Hx Appendectomy: Yes ([address] [place] [address]) Hx Cholecystectomy: No Hx Genitourinary Surgery: No Hx Section: No Hx Orthopedic Surgery: No Other Surgical History: left ankle surgery with titanium plate [address] [facility] Anesthesia Reaction: No - PPD History Date: 12/03/14 Results: 0 mm - Smoking Cessation Smoking history: Never smoked Have you smoked in the past 12 months: No Aproximately how many cigarettes per day: 0 Cigars Per Day: 0 Hx Chewing Tobacco Use: No Family Disease History - Family Disease History Family Disease History: Diabetes: Mother (,lung cancer), Heart Disease: Father (), Mother, CA: Mother, Respiratory: Daughter, Other: Brother ( alcohol dependent ), Sister (alcohol dependent ) [facility] Breath Alcohol Content Breath Alcohol Content: 0.045
--- NOTE | 2018-09-09 18:55 | HP ---
CIWA Score Nausea/Vomitin Muscle Tremors: 2 Anxiety: 2 Agitation: 2 Paroxysmal Sweats: 1-Minimal Palms Moist Orientation: 0-Oriented Tacttile Disturbances: 1-Very Mild Itch/Numbness Auditory Disturbances: 1-Very Mild Visual Disturbances: 0-None Headache: 2-Mild CIWA-Ar Total Score: 13 - Admission Criteria OASAS Guidelines: Admission for Medically Managed Detox: Requires at least one of the followin. CIWA greater than 12 2. Seizures within the past 24 hours 3. Delirium tremens within the past 24 hours 4. Hallucinations within the past 24 hours 5. Acute intervention needed for co occurring medical disorder 6. Acute intervention needed for co occurring psychiatric disorder 7. Severe withdrawal that cannot be handled at a lower level of care (continued vomiting, continued diarrhea, abnormal vital signs) requiring intravenous medication and/or fluids 8. Patient presents the following: CIWA greater than 12, Acute intervention needed for co-occurring med or psych disorder Admission Criteria Met: Admission criteria met Admission ROS S - [facility] Chief Complaint: i need help to stop drinking alcohol Allergies/Adverse Reactions: Allergies Allergy/AdvReac Type Severity Reaction Status Date / Time Iodinated Contrast- Oral and Allergy Severe Verified 09/09/18 18:43 IV Dye IV dye Allergy Severe Rash Uncoded 09/09/18 18:43 History of Present Illness: this 63 years old male with alcohol dependence seeking detox,withdrawal symptom, multiple admissions in detox extensive history of alcohol dependence since age of 13 last treatment 11/01/17 to 11/05/17 history of cancer of prostate 6 months on biswas catheter,follow up with urologist at [place] type 2 dm,asthma,hypertension,bipolar disorder,hyperchoesterolemia no significant period of sobriety Exam Limitations: No Limitations - Review of Systems Constitutional: Loss of Appetite, Malaise, Night Sweats, Changes in sleep EENT: reports: Tearing, Nose Congestion Respiratory: reports: No Symptoms reported (asthma) Cardiac: reports: No Symptoms Reported GI: reports: Diarrhea, Nausea, Vomiting, Abdominal cramping : reports: No Symptoms Reported, Other (cancer of prostate retain biswas catheter) Musculoskeletal: reports: Back Pain, Muscle Pain Integumentary: reports: Dryness Neuro: reports: Headache, Tremors Endocrine: reports: No Symptoms Reported Hematology: reports: No Symptoms Reported Psychiatric: reports: No Sypmtoms Reported, Judgement Intact, Mood/Affect Appropiate, Orientated x3 (bipolar disorder) Patient History - Patient Medical History Hx Anemia: No Hx Asthma: Yes (on albuterol inhaler) Hx Chronic Obstructive Pulmonary Disease (COPD): No Hx Cancer: No Hx Cardiac Disorders: No Hx Congestive Heart Failure: No Hx Hypertension: Yes (on med) Hx Hypercholesterolemia: Yes (ON CRESTOR 10 MG HS) Hx Pacemaker: No HX Cerebrovascular Accident: No Hx Seizures: No Hx Dementia: No Hx Diabetes: Yes (NIDDM) Hx Gastrointestinal Disorders: No Hx Liver Disease: No Hx Genitourinary Disorders: No Hx Sexually Transmitted Disorders: No Hx Renal Disease (ESRD): No Hx Thyroid Disease: No Hx Human Immunodeficiency Virus (HIV): No (NEGATIVE HX last 2015) Hx Hepatitis C: No (REQUESTS TESTING ) Hx Depression: Yes Hx Suicide Attempt: No Hx Bipolar Disorder: Yes (seroquel 100mg hs) Hx Schizophrenia: No Other Medical History: no suicidal,no homicidal - Patient Surgical History Past Surgical History: Yes Hx Neurologic Surgery: No Hx Cataract Extraction: No Hx Cardiac Surgery: No Hx Lung Surgery: No Hx Breast Surgery: No Hx Breast Biopsy: No Hx Abdominal Surgery: Yes (bilateral inguinal hernia reapir in [place] [facility] in 1984) Hx Appendectomy: Yes (1984 2 [facility]) Hx Cholecystectomy: No Hx Genitourinary Surgery: No Hx Section: No Hx Orthopedic Surgery: No Other Surgical History: left ankle surgery with titanium plate 2009 @ [facility] Anesthesia Reaction: No - PPD History Previous Implant?: Yes Implanted On Prior [facility] Admission?: Yes Date: 12/03/14 Results: 0 mm PPD to be Administered?: Yes - Smoking Cessation Smoking history: Never smoked Have you smoked in the past 12 months: No Aproximately how many cigarettes per day: 0 Cigars Per Day: 0 Hx Chewing Tobacco Use: No - Substance & Tx. History Hx Alcohol Use: Yes Hx Substance Use: No Substance Use Type: Alcohol Hx Substance Use Treatment: Yes (last [facility] 11/01/17 to 11/05/17) - Substances Abused Alcohol Route: Oral Frequency: Daily Amount used: 30 of 25 ozs of beer Age of first use: 13 Date of Last Use: 09/09/18 Family Disease History - Family Disease History Family Disease History: Diabetes: Mother (,lung cancer), Heart Disease: Father (), Mother, CA: Mother, Respiratory: Daughter, Other: Brother ( alcohol dependent ), Sister (alcohol dependent ) Admission Physical Exam S - Physical General Appearance: Yes: Moderate Distress, Tremorous, Irritable, Sweating, Anxious HEENTM: Yes: Normal ENT Inspection, REED, Pharynx Normal Respiratory: Yes: Lungs Clear, Normal Breath Sounds, No Respiratory Distress, Other (asthma) Neck: Yes: Within Normal Limits, Supple, Trachea in good position Breast: Yes: Within Normal Limits Cardiology: Yes: Regular Rhythm, Regular Rate, S1, S2 Abdominal: Yes: Within Normal Limits, Normal Bowel Sounds, Non Tender, Flat, Soft, Surgical Scar Genitourinary: Yes: Other (hisotory of cancer of prostate on retain biswas cathter follow up with the rolologist at [facility]) Back: Yes: Within Normal Limits Musculoskeletal: Yes: Back pain, Muscle Pain Extremities: Yes: Tremors Neurological: Yes: machines technician II-XII NML intact, Alert, Motor Strength 5/5 Integumentary: Yes: Dry Lymphatic: Yes: Within Normal Limits - Diagnostic (1) Alcohol dependence with uncomplicated withdrawal Current Visit: No Status: Acute (2) Alcohol dependence with uncomplicated intoxication Current Visit: Yes Status: Acute (3) Syncope Current Visit: Yes Status: Acute (4) Type 2 diabetes mellitus Current Visit: No Status: Chronic Qualifiers: Diabetes mellitus retirement insulin use: without extermination inspector use Diabetes mellitus complication status: without complication Qualified Code(s): E11.9 - Type 2 diabetes mellitus without complications Comment: (5) Bipolar disorder (manic depression) Current Visit: No Status: Acute (6) CA of prostate Current Visit: Yes Status: Acute (7) Biswas catheter in place Current Visit: Yes Status: Acute (8) HTN (hypertension) Current Visit: No Status: Chronic Qualifiers: Hypertension type: essential hypertension Qualified Code(s): I10 - Essential (primary) hypertension (9) Asthma Current Visit: No Status: Chronic Qualifiers: Asthma severity: mild Asthma persistence: intermittent Asthma complication type: uncomplicated Qualified Code(s): J45.20 - Mild intermittent asthma, uncomplicated (10) Hypercholesterolemia Current Visit: No Status: Chronic (11) Hyperlipidemia Current Visit: No Status: Chronic Qualifiers: Hyperlipidemia type: unspecified Qualified Code(s): E78.5 - Hyperlipidemia , unspecified Cleared for Admission [facility] - Detox or Rehab [facility] Level of Care: Medically Managed Detox Regimen/Protocol: Librium [facility] Breath Alcohol Content Breath Alcohol Content: 0.045
[2018-09-09 19:04] VITALS: BMI 34.7
[2018-09-09] MEDS ORDERED: P-EPHED 60MG/TRIPROLIDI 2.5MG TABLET PO PRN (19:16)
[2018-09-09] MEDS ORDERED: guaiFENesin/D-METHORPHAN HB 10 ML UNIT-DOSE CUPS PO PRN (19:16)
[2018-09-09] MEDS ORDERED: MAG HYDROX/AL HYDROX/SIMETH 30 ML UNIT-DOSE CUP PO PRN (19:16)
[2018-09-09] MEDS ORDERED: hydrOXYzine PAMOATE 50 MG CAPSULE (FP) PO PRN (19:16)
[2018-09-09] MEDS ORDERED: MAGNESIUM CITRATE 300 ML BOTTLE PO PRN (19:16)
[2018-09-09] MEDS ORDERED: LOPERAMIDE HCL 2 MG CAPSULE PO PRN (19:16)
[2018-09-09] MEDS ORDERED: IBUPROFEN 400 MG TABLET (FP) PO PRN (19:16)
[2018-09-09] MEDS ORDERED: ACETAMINOPHEN 325 MG TABLET (FP) PO PRN (19:16)
[2018-09-09] MEDS ORDERED: MENTHOL/PHENOL 1 EACH UD MM PRN (19:16)
[2018-09-09] MEDS ORDERED: MAGNESIUM HYDROX 2400MG/30ML ORAL SUSPENSION 30 ML CUP PO PRN (19:16)
[2018-09-09] MEDS ORDERED: chlordiazePOXIDE HCL 25 MG CAPSULE PO PRN (19:16)
[2018-09-09] MEDS ORDERED: ALBUTEROL SO4 8 GM HFA INHALER IH PRN (19:22)
[2018-09-09] MEDS ORDERED: MELATONIN 5 MG TABLETS PO PRN (22:00)
[2018-09-09] MEDS: THIAMINE HCL 100 MG TABLET (FP) PO SCH (22:51)
[2018-09-09] MEDS: metFORMIN HCL 500 MG TABLET (FP) PO SCH (22:51)
[2018-09-09] MEDS: chlordiazePOXIDE HCL 25 MG CAPSULE PO SCH (22:53)
[2018-09-09] MEDS: ROSUVASTATIN CA 10 MG TABLET (FP) PO SCH (22:57)
--- NOTE | 2018-09-09 23:29 | PN ---
[facility] Progress Note Note: Patient complained of generalized itching. Vital Signs Temperature 96.4 F L 09/09/18 22:35 Pulse Rate 91 H 09/09/18 22:35 Respiratory Rate 20 09/09/18 22:35 Blood Pressure 162/78 09/09/18 22:35 O2 Sat by Pulse Oximetry (%) Laboratory Last Values POC Glucometer 145 UNITS (80-120) 09/09/18 19:11 Action: Benadryl 25mg capsule oral ordered
[2018-09-09] MEDS ORDERED: diphenhydrAMINE HCL 25 MG CAPSULE (FP) PO ONE (23:30)
[2018-09-10] MEDS: chlordiazePOXIDE HCL 25 MG CAPSULE PO SCH ×4 (06:20→22:46)
[2018-09-10] MEDS ORDERED: PRENATAL VITAMINS W/ FOLIC ACID TABLET (FP) PO SCH (10:00)
[2018-09-10] MEDS ORDERED: ASPIRIN 81 MG CHEWABLE TABLETS PO SCH (10:00)
[2018-09-10] MEDS ORDERED: amLODIPine BESYLATE 10 MG TABLET (FP) PO SCH (10:00)
[2018-09-10 10:27] LABS: HEMATOCRIT 43.4 % (35.4-49); MCH 31.4 pg (25.7-33.7); MCHC 34.6 g/dl (32.0-35.9); MEAN CELL VOLUME 90.9 fl (80-96); MEAN PLT VOLUME 7.3 fl (7.5-11.1); PLATELET COUNT 277 K/MM3 (134-434); RBC 4.77 M/mm3 (4.00-5.60); RDW 13.5 % (11.9-15.9)
[2018-09-10] MEDS: metFORMIN HCL 500 MG TABLET (FP) PO SCH ×2 (10:37→22:46)
[2018-09-10 10:51] LABS: ALBUMIN 3.8 g/dl (3.4-5.0); ALK PHOS 128 U/L (45-117); ANION GAP 11 MMOL/L (8-16); BILIRUBIN,TOTAL 0.4 mg/dL (0.2-1); BLOOD UREA NITROGEN 14 mg/dL (7-18); CALCIUM 8.6 mg/dL (8.5-10.1); CHLORIDE 101 mmol/L (98-107); CO2 25 mmol/L (21-32); CREATININE 0.9 mg/dL (0.55-1.3); GLUCOSE,RANDOM 198 mg/dL (74-106); POTASSIUM 4.1 mmol/L (3.5-5.1); SGOT/AST 19 U/L (15-37); SGPT/ALT 23 U/L (13-61); SODIUM 136 mmol/L (136-145); TOT PROT 7.1 g/dl (6.4-8.2)
[2018-09-10 14:13] LABS: URINE APPEARANCE SLCLOUDY; URINE BILIRUBIN NEGATIVE (<2.0 mg/dL); URINE COLOR YELLOW; URINE GLUCOSE (UA) NEGATIVE (NEGATIVE); URINE KETONE NEGATIVE (NEGATIVE); URINE LEUK ESTERASE 2+ (NEGATIVE); URINE NITRITE NEGATIVE (NEGATIVE); URINE PROTEIN NEGATIVE (NEGATIVE); URINE UROBILINOGEN NEGATIVE mg/dL (0.2-1.0)
--- NOTE | 2018-09-10 14:28 | CONSULT ---
[facility] Psychiatric Consult - Data Date of interview: 09/10/18 Admission source: [facility] Identifying data: Patient is approached at bedside for psychiatric evaluation. Mr Brewer declines. " I have my own psychiatrist where I live at. I don't take psychiatric medications now. Thank you. I don't need to talk to you. I go to my psychiatrist whenever I need to ". Nursing staff is made aware.
[2018-09-10 14:33] LABS: EPI CELLS RARE /HPF (FEW); URINE BACTERIA RARE /hpf (NONE SEEN); URINE MUCUS RARE
--- NOTE | 2018-09-10 16:27 | PN ---
S CIWA - CIWA Score Nausea/Vomitin-No Nausea/No Vomiting Muscle Tremors: 3 Anxiety: 4-Mod. Anxious/Guarded Agitation: 3 Paroxysmal Sweats: 3 Orientation: 0-Oriented Tacttile Disturbances: 0-None Auditory Disturbances: 0-None Visual Disturbances: 0-None Headache: 0-None Present CIWA-Ar Total Score: 13 [facility] Progress Note (SOAP) Subjective: Sweats shakes "something bit me"/ itching to sacral area Objective: 09/10/18 16:21 A & O x 3 Anxious area of "bite" complained about localized to sacral area Lesions in line with genital herpes lesions noted (chaperoned by L[place]ster) Pt denied herpes hx/states "I don't have that, been with the same partner x 5yrs /have not had sex for 2 yrs" States "I will get second opinion" Vital Signs Temperature 97.7 F 09/10/18 13:18 Pulse Rate 80 09/10/18 16:00 Respiratory Rate 18 09/10/18 16:00 Blood Pressure 156/91 09/10/18 13:18 O2 Sat by Pulse Oximetry (%) Laboratory Last Values WBC 7.0 K/mm3 (4.0-10.0) 09/10/18 07:10 RBC 4.77 M/mm3 (4.00-5.60) 09/10/18 07:10 Hgb 15.0 GM/dL (11.7-16.9) 09/10/18 07:10 Hct 43.4 % (35.4-49) 09/10/18 07:10 MCV 90.9 fl (80-96) 09/10/18 07:10 MCH 31.4 pg (25.7-33.7) 09/10/18 07:10 MCHC 34.6 g/dl (32.0-35.9) 09/10/18 07:10 RDW 13.5 % (11.9-15.9) 09/10/18 07:10 Plt Count 277 K/MM3 (134-434) 09/10/18 07:10 MPV 7.3 fl (7.5-11.1) L 09/10/18 07:10 Sodium 136 mmol/L (136-145) 09/10/18 07:10 Potassium 4.1 mmol/L (3.5-5.1) 09/10/18 07:10 Chloride 101 mmol/L (98-107) 09/10/18 07:10 Carbon Dioxide 25 mmol/L (21-32) 09/10/18 07:10 Anion Gap 11 MMOL/L (8-16) 09/10/18 07:10 BUN 14 mg/dL (7-18) 09/10/18 07:10 Creatinine 0.9 mg/dL (0.55-1.3) 09/10/18 07:10 Creat Clearance w eGFR > 60 (>60) 09/10/18 07:10 POC Glucometer 144 UNITS (80-120) 09/10/18 06:19 Random Glucose 198 mg/dL (74-106) H 09/10/18 07:10 Calcium 8.6 mg/dL (8.5-10.1) 09/10/18 07:10 Total Bilirubin 0.4 mg/dL (0.2-1) 09/10/18 07:10 AST 19 U/L (15-37) 09/10/18 07:10 ALT 23 U/L (13-61) 09/10/18 07:10 Alkaline Phosphatase 128 U/L (45-117) H 09/10/18 07:10 Total Protein 7.1 g/dl (6.4-8.2) 09/10/18 07:10 Albumin 3.8 g/dl (3.4-5.0) 09/10/18 07:10 Urine Color Yellow 09/10/18 11:10 Urine Appearance Slcloudy 09/10/18 11:10 Urine pH 5.0 (5.0-8.0) 09/10/18 11:10 Ur Specific [place] 1.014 (1.010-1.035) 09/10/18 11:10 Urine Protein Negative (NEGATIVE) 09/10/18 11:10 Urine Glucose (UA) Negative (NEGATIVE) 09/10/18 11:10 Urine Ketones Negative (NEGATIVE) 09/10/18 11:10 Urine Blood 1+ (NEGATIVE) H 09/10/18 11:10 Urine Nitrite Negative (NEGATIVE) 09/10/18 11:10 Urine Bilirubin Negative (<2.0 mg/dL) 09/10/18 11:10 Urine Urobilinogen Negative mg/dL (0.2-1.0) 09/10/18 11:10 Ur Leukocyte Esterase 2+ (NEGATIVE) H 09/10/18 11:10 Urine WBC (Auto) 79 /hpf (3-5) 09/10/18 11:10 Urine RBC (Auto) 2 /hpf (0-3) 09/10/18 11:10 Ur Epithelial Cells Rare /HPF (FEW) 09/10/18 11:10 Urine Bacteria Rare /hpf (NONE SEEN) 09/10/18 11:10 Urine Mucus Rare 09/10/18 11:10 RPR Titer Nonreactive (NONREACTIVE) 09/10/18 07:10 elevated random glucose abnormal UA Assessment: 09/10/18 16:27 withdrawal sx Hyperglycemia in line with DM2 hx Herpetic lesions Plan: continue with detox Increase hydration Repeat UA Hydrocortisone for itching area Follow up with PMD for dx tests PRN tylenol for pain/fever if necessary tx of symptoms (No need for HSV testing now in view of pt's denial of symptom diagnosis)
[2018-09-10] MEDS ORDERED: HYDROCORTISONE 0.5% TOPICAL OINTMENT TUBE TP PRN (16:43)
[2018-09-10] MEDS: THIAMINE HCL 100 MG TABLET (FP) PO SCH (22:46)
[2018-09-10] MEDS: ROSUVASTATIN CA 10 MG TABLET (FP) PO SCH (22:46)
[2018-09-11] MEDS: chlordiazePOXIDE HCL 25 MG CAPSULE PO SCH (06:03)
[2018-09-11 09:17] VITALS: BP 160/83; PULSE 104; TEMP 97.2
--- NOTE | 2018-09-11 12:04 | DS ---
[facility] Detox Discharge Summary Admission Date: 09/09/18 Discharge Date: 09/11/18 - History Present History: Alcohol Dependence Additional Comments: Patient requested to be discharged. Patient informed that his detox protocol needs to be completed in order for instructional writer to discharge him. As per patient, he doesn't need an official discharge and only wants to leave AMA. Patient is A, A , Ox3, in nad, ambulatory. Patient stated that he is leaving to go to [facility] because he got a rash from the bed in his room and doesn't want any treatment for the rash and refused to show the rash to anyone. Patient encouraged to complete detox but demanded to leave. Patient instructed to call 911 if he is feeling sick or having any withdrawal symptoms and to see his PCP within 3 days. As per patient, he is aware to call 911. Patient verbalized understanding. Pertinent Past History: Alcohol dependence DMT2 with hyperglycemia Bipolar disorder Prostate cancer HTN Asthma HLD - Physical Exam Results Vital Signs: Vital Signs Temperature 97.2 F L 09/11/18 09:16 Pulse Rate 104 H 09/11/18 09:16 Respiratory Rate 18 09/11/18 09:16 Blood Pressure 160/83 09/11/18 09:16 O2 Sat by Pulse Oximetry (%) Pertinent Admission Physical Exam Findings: Withdrawal symptoms Laboratory Tests 09/09/18 09/10/18 09/10/18 19:11 06:19 07:10 WBC 7.0 RBC 4.77 Hgb 15.0 Hct 43.4 MCV 90.9 MCH 31.4 MCHC 34.6 RDW 13.5 Plt Count 277 MPV 7.3 L Sodium Potassium Chloride Carbon Dioxide Anion Gap BUN Creatinine Creat Clearance w eGFR POC Glucometer 145 144 Random Glucose Calcium Total Bilirubin AST ALT Alkaline Phosphatase Total Protein Albumin Urine Color Urine Appearance Urine pH Ur Specific [place] Urine Protein Urine Glucose (UA) Urine Ketones Urine Blood Urine Nitrite Urine Bilirubin Urine Urobilinogen Ur Leukocyte Esterase Urine WBC (Auto) Urine RBC (Auto) Ur Epithelial Cells Urine Bacteria Urine Mucus RPR Titer 09/10/18 09/10/18 09/10/18 07:10 07:10 11:10 WBC RBC Hgb Hct MCV MCH MCHC RDW Plt Count MPV Sodium 136 Potassium 4.1 Chloride 101 Carbon Dioxide 25 Anion Gap 11 BUN 14 Creatinine 0.9 Creat Clearance w eGFR > 60 POC Glucometer Random Glucose 198 H Calcium 8.6 Total Bilirubin 0.4 AST 19 ALT 23 Alkaline Phosphatase 128 H Total Protein 7.1 Albumin 3.8 Urine Color Yellow Urine Appearance Slcloudy Urine pH 5.0 Ur Specific [place] 1.014 Urine Protein Negative Urine Glucose (UA) Negative Urine Ketones Negative Urine Blood 1+ H Urine Nitrite Negative Urine Bilirubin Negative Urine Urobilinogen Negative Ur Leukocyte Esterase 2+ H Urine WBC (Auto) 79 Urine RBC (Auto) 2 Ur Epithelial Cells Rare Urine Bacteria Rare Urine Mucus Rare RPR Titer Nonreactive 09/10/18 09/11/18 16:46 06:03 WBC RBC Hgb Hct MCV MCH MCHC RDW Plt Count MPV Sodium Potassium Chloride Carbon Dioxide Anion Gap BUN Creatinine Creat Clearance w eGFR POC Glucometer 173 139 Random Glucose Calcium Total Bilirubin AST ALT Alkaline Phosphatase Total Protein Albumin Urine Color Urine Appearance Urine pH Ur Specific [place] Urine Protein Urine Glucose (UA) Urine Ketones Urine Blood Urine Nitrite Urine Bilirubin Urine Urobilinogen Ur Leukocyte Esterase Urine WBC (Auto) Urine RBC (Auto) Ur Epithelial Cells Urine Bacteria Urine Mucus RPR Titer Labs reviewed - Medication Discharge Medications: Ambulatory Orders Albuterol Sulfate Inhaler - [Ventolin HFA Inhaler -] 2 inh PO Q4H PRN 08/14/14 Quetiapine Fumarate [Seroquel -] 50 mg PO HS #30 tablet 03/02/15 Aspirin [ASA -] 81 mg PO DAILY 06/08/15 Rosuvastatin [Crestor -] 10 mg PO HS 06/08/15 Amlodipine Besylate [Norvasc -] 10 mg PO DAILY 11/01/17 metFORMIN HCL [Glucophage -] 500 mg PO BID 11/01/17 - Diagnosis (1) Type 2 diabetes mellitus with hyperglycemia Status: Chronic (2) Alcohol dependence with uncomplicated withdrawal Status: Acute (3) CA of prostate Status: Chronic (4) Asthma Status: Chronic Qualifiers: Asthma severity: mild Asthma persistence: intermittent Asthma complication type: uncomplicated Qualified Code(s): J45.20 - Mild intermittent asthma, uncomplicated (5) Bipolar disorder Status: Chronic (6) HTN (hypertension) Status: Chronic Qualifiers: Hypertension type: essential hypertension Qualified Code(s): I10 - Essential (primary) hypertension (7) Hyperlipidemia Status: Chronic Qualifiers: Hyperlipidemia type: unspecified Qualified Code(s): E78.5 - Hyperlipidemia , unspecified (8) Obesity Status: Chronic - AMA Did Patient Leave Against Medical Advice: Yes (Instructed to call 911 if feeling sick or any withdrawal symptoms)
--- NOTE | 2018-09-11 16:17 | EKG ---
Test Reason : Blood Pressure : / mmHG Vent. Rate : 095 BPM Atrial Rate : 095 BPM P-R Int : 146 ms QRS Dur : 084 ms QT Int : 370 ms P-R-T Axes : 059 -48 058 degrees QTc Int : 464 ms NORMAL SINUS RHYTHM LEFT AXIS DEVIATION ABNORMAL ECG WHEN COMPARED WITH ECG OF 04-NOV-2017 07:50, NO SIGNIFICANT CHANGE WAS FOUND Confirmed by MD Noemi, Joe ([id number]) on 09/11/2018 4:17:33 PM Referred By: Abiola Peters Confirmed By:Joe Franklin MD
[2018-09-11] MEDS ORDERED: chlordiazePOXIDE 5 MG CAPSULE PO SCH (23:00)
[2018-09-12] MEDS ORDERED: chlordiazePOXIDE HCL 10 MG CAPSULE PO SCH (23:00)
== END 2018-09-11 09:30 | disposition left against medical advice (07) | DRG 770 ==
LOC: YASAS 14:43 → Y3N 18:55
PROC: HZ2ZZZZ Detoxification Services for Substance Abuse Treatment (ICD-10-PCS; principal; 2018-09-09)
DX: F10.220 Alcohol dependence with intoxication, uncomplicated (principal); F10.24 Alcohol dependence with alcohol-induced mood disorder; F10.280 Alcohol dependence with alcohol-induced anxiety disorder; F31.9 Bipolar disorder, unspecified; E11.65 Type 2 diabetes mellitus with hyperglycemia; C61 Malignant neoplasm of prostate; J45.20 Mild intermittent asthma, uncomplicated; J44.9 Chronic obstructive pulmonary disease, unspecified; I10 Essential (primary) hypertension; R82.90 Unspecified abnormal findings in urine; E78.5 Hyperlipidemia, unspecified; B00.9 Herpesviral infection, unspecified; E66.9 Obesity, unspecified; Z68.34 Body mass index [BMI] 34.0-34.9, adult; Z46.6 Encounter for fitting and adjustment of urinary device
CPT/HCPCS: 36415; 80053; 81003; 81015; 82962; 85027; 86593; 93005; 93010

== ENCOUNTER 2018-10-01 10:18 | Inpatient (IN) | payer OTHER ==
[2018-10-01 11:23] VITALS: BMI 34.7
--- NOTE | 2018-10-01 12:03 | HP ---
CIWA Score Nausea/Vomitin Muscle Tremors: 2 Anxiety: 2 Agitation: 2 Paroxysmal Sweats: 2 Orientation: 0-Oriented Tacttile Disturbances: 1-Very Mild Itch/Numbness Auditory Disturbances: 1-Very Mild Visual Disturbances: 0-None Headache: 2-Mild CIWA-Ar Total Score: 14 - Admission Criteria [facility]ASAS Guidelines: Admission for Medically Managed Detox: Requires at least one of the followin. CIWA greater than 12 2. Seizures within the past 24 hours 3. Delirium tremens within the past 24 hours 4. Hallucinations within the past 24 hours 5. Acute intervention needed for co occurring medical disorder 6. Acute intervention needed for co occurring psychiatric disorder 7. Severe withdrawal that cannot be handled at a lower level of care (continued vomiting, continued diarrhea, abnormal vital signs) requiring intravenous medication and/or fluids 8. Patient presents the following: CIWA greater than 12 Admission Criteria Met: Admission criteria met Admission ROS [facility] - [facility] Chief Complaint: i need help to stop drinking alcohol Allergies/Adverse Reactions: Allergies Allergy/AdvReac Type Severity Reaction Status Date / Time Iodinated Contrast- Oral and Allergy Severe Rash Verified 10/01/18 11:41 IV Dye IV dye Allergy Severe Rash Uncoded 10/01/18 11:41 History of Present Illness: this 63 years old male with alcohol dependence,seeking detox,withdrawal symptom, last detox 09/09/18 to 09/11/18 not completed syncope alcohol related history of type 2 dm,hypertension,bph,ca of prostate with retained biswas catheter for 6 moths asthma hepatitis c bipolar disorder longest period of sobriety 16 years frequent falls Exam Limitations: No Limitations - Ebola screening Have you traveled outside of the country in the last 21 days: No Have you had contact with anyone from an Ebola affected area: No Have you been sick,other than usual withdrawal symptoms: No Do you have a fever: No - Review of Systems Constitutional: Loss of Appetite, Malaise, Night Sweats, Changes in sleep, Weakness EENT: reports: Nose Congestion Respiratory: reports: No Symptoms reported, Other (history of asthma) Cardiac: reports: No Symptoms Reported GI: reports: Nausea, Poor Appetite, Abdominal cramping : reports: No Symptoms Reported (ca of prostate ,bph retained biswas cathter) Musculoskeletal: reports: Back Pain, Muscle Pain Integumentary: reports: Dryness Neuro: reports: Headache, Tremors Endocrine: reports: No Symptoms Reported Hematology: reports: No Symptoms Reported Psychiatric: reports: No Sypmtoms Reported, Judgement Intact, Mood/Affect Appropiate, Orientated x3, other (bipolar disorder) Patient History - Patient Medical History Hx Anemia: No Hx Asthma: Yes (on albuterol inhaler) Hx Chronic Obstructive Pulmonary Disease (COPD): No Hx Cancer: No Hx Cardiac Disorders: No Hx Congestive Heart Failure: No Hx Hypertension: Yes (on med) Hx Hypercholesterolemia: Yes (ON CRESTOR 10 MG HS) Hx Pacemaker: No HX Cerebrovascular Accident: No Hx Seizures: No Hx Dementia: No Hx Diabetes: Yes (NIDDM) Hx Gastrointestinal Disorders: No Hx Liver Disease: No Hx Genitourinary Disorders: No Hx Sexually Transmitted Disorders: No Hx Renal Disease (ESRD): No Hx Thyroid Disease: No Hx Human Immunodeficiency Virus (HIV): No (NEGATIVE HX last 2015) Hx Hepatitis C: No (REQUESTS TESTING ) Hx Depression: Yes Hx Suicide Attempt: No Hx Bipolar Disorder: Yes (seroquel 100mg hs) Hx Schizophrenia: No Other Medical History: no suicidal,no homicidal,frequent falls - Patient Surgical History Past Surgical History: Yes Hx Neurologic Surgery: No Hx Cataract Extraction: No Hx Cardiac Surgery: No Hx Lung Surgery: No Hx Breast Surgery: No Hx Breast Biopsy: No Hx Abdominal Surgery: Yes (bilateral inguinal hernia reapir in [facility] in 1984) Hx Appendectomy: Yes (1984 2 [facility]) Hx Cholecystectomy: No Hx Genitourinary Surgery: No Hx Section: No Hx Orthopedic Surgery: No Other Surgical History: left ankle surgery with titanium plate 2009 @ [facility] Anesthesia Reaction: No - PPD History Previous Implant?: Yes Documented Results: Negative w/o proof Implanted On Prior [facility] Admission?: Yes Date: 12/03/14 Results: 0 mm PPD to be Administered?: Yes - Smoking Cessation Smoking history: Never smoked Have you smoked in the past 12 months: No Aproximately how many cigarettes per day: 0 Cigars Per Day: 0 Hx Chewing Tobacco Use: No - Substance & Tx. History Hx Alcohol Use: Yes Hx Substance Use: No Substance Use Type: Alcohol Hx Substance Use Treatment: Yes ([facility] 09/09/18 to 09/11/18 not complicated) - Substances Abused Alcohol-beer Route: Oral Frequency: Daily Amount used: 3-6 pks. (25 oz.) Age of first use: 13 Date of Last Use: 10/01/18 Family Disease History - Family Disease History Family Disease History: Diabetes: Mother (,lung cancer), Heart Disease: Father (), Mother, CA: Mother, Respiratory: Daughter, Other: Brother ( alcohol dependent ), Sister (alcohol dependent ) Admission Physical Exam [facility] - Vital Signs Vital Signs: Vital Signs - 24 hr 10/01/18 11:22 Temperature 96.4 F L Pulse Rate 97 H Respiratory 18 Rate Blood Pressure 144/82 - Physical General Appearance: Yes: Moderate Distress, Tremorous, Irritable, Sweating, Anxious HEENTM: Yes: Normal ENT Inspection, REED, Pharynx Normal Respiratory: Yes: Lungs Clear, Normal Breath Sounds, No Respiratory Distress Neck: Yes: Within Normal Limits, Supple, Trachea in good position Breast: Yes: Within Normal Limits Cardiology: Yes: Within Normal Limits, Regular Rhythm, Regular Rate, S1, S2 Abdominal: Yes: Within Normal Limits, Normal Bowel Sounds, Non Tender, Soft Genitourinary: Yes: Within Normal Limits, Other (retain biswas catheter for ca of prostate bph) Back: Yes: Muscle Spasm Musculoskeletal: Yes: full range of Motion, Back pain, Muscle Pain Extremities: Yes: Tremors Neurological: 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: 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 intact, Alert, Motor Strength 5/5 Integumentary: Yes: Dry Lymphatic: Yes: Within Normal Limits - Diagnostic (1) Alcohol dependence with uncomplicated withdrawal Current Visit: No Status: Acute (2) Alcohol dependence with uncomplicated intoxication Current Visit: No Status: Acute (3) Biswas catheter in place Current Visit: No Status: Acute (4) Syncope Current Visit: No Status: Acute (5) Asthma Current Visit: No Status: Chronic Qualifiers: Asthma severity: mild Asthma persistence: intermittent Asthma complication type: uncomplicated Qualified Code(s): J45.20 - Mild intermittent asthma, uncomplicated (6) Bipolar disorder Current Visit: No Status: Chronic Comment: Self reports (7) CA of prostate Current Visit: No Status: Chronic (8) HTN (hypertension) Current Visit: No Status: Chronic Qualifiers: Hypertension type: essential hypertension Qualified Code(s): I10 - Essential (primary) hypertension (9) Hypercholesterolemia Current Visit: No Status: Chronic (10) Hyperlipidemia Current Visit: No Status: Chronic Qualifiers: Hyperlipidemia type: unspecified Qualified Code(s): E78.5 - Hyperlipidemia , unspecified (11) Obesity Current Visit: No Status: Chronic (12) Type 2 diabetes mellitus Current Visit: No Status: Chronic Qualifiers: Diabetes mellitus nursing home insulin use: without nursing home use Diabetes mellitus complication status: without complication Qualified Code(s): E11.9 - Type 2 diabetes mellitus without complications Comment: (13) Syncope Current Visit: Yes Status: Acute Cleared for Admission [facility] - Detox or Rehab [facility] Level of Care: Medically Managed Detox Regimen/Protocol: Librium [facility] Breath Alcohol Content Breath Alcohol Content: 0.225 Urine Drug Screen - Results Drug Screen Negative: Yes
[2018-10-01] MEDS ORDERED: IBUPROFEN 400 MG TABLET (FP) PO PRN (12:15)
[2018-10-01] MEDS ORDERED: guaiFENesin/D-METHORPHAN HB 10 ML UNIT-DOSE CUPS PO PRN (12:15)
[2018-10-01] MEDS ORDERED: chlordiazePOXIDE HCL 25 MG CAPSULE PO PRN (12:15)
[2018-10-01] MEDS ORDERED: ACETAMINOPHEN 325 MG TABLET (FP) PO PRN (12:15)
[2018-10-01] MEDS ORDERED: MENTHOL/PHENOL 1 EACH UD MM PRN (12:15)
[2018-10-01] MEDS ORDERED: MAGNESIUM CITRATE 300 ML BOTTLE PO PRN (12:15)
[2018-10-01] MEDS ORDERED: LOPERAMIDE HCL 2 MG CAPSULE PO PRN (12:15)
[2018-10-01] MEDS ORDERED: hydrOXYzine PAMOATE 50 MG CAPSULE (FP) PO PRN (12:15)
[2018-10-01] MEDS ORDERED: P-EPHED 60MG/TRIPROLIDI 2.5MG TABLET PO PRN (12:15)
[2018-10-01] MEDS ORDERED: MAG HYDROX/AL HYDROX/SIMETH 30 ML UNIT-DOSE CUP PO PRN (12:15)
[2018-10-01] MEDS ORDERED: MAGNESIUM HYDROX 2400MG/30ML ORAL SUSPENSION 30 ML CUP PO PRN (12:15)
[2018-10-01] MEDS: ALBUTEROL SO4 8 GM HFA INHALER IH PRN (13:09)
[2018-10-01] MEDS: metFORMIN HCL 500 MG TABLET (FP) PO SCH (17:25)
[2018-10-01] MEDS: chlordiazePOXIDE HCL 25 MG CAPSULE PO SCH ×2 (17:46→22:12)
[2018-10-01] MEDS: THIAMINE HCL 100 MG TABLET (FP) PO SCH (22:11)
[2018-10-01] MEDS: ROSUVASTATIN CA 10 MG TABLET (FP) PO SCH (22:12)
[2018-10-02] MEDS: chlordiazePOXIDE HCL 25 MG CAPSULE PO SCH ×4 (05:17→22:05)
[2018-10-02] MEDS: metFORMIN HCL 500 MG TABLET (FP) PO SCH ×2 (06:49→16:59)
--- NOTE | 2018-10-02 07:42 | PN ---
[facility] Progress Note Note: Patient's blood pressure was B/P 159/106. Patient is asymptomatic Vital Signs Temperature 97.9 F 10/02/18 06:27 Pulse Rate 98 H 10/02/18 06:30 Respiratory Rate 20 10/02/18 06:27 Blood Pressure 159/126 H 10/02/18 07:38 O2 Sat by Pulse Oximetry (%) Action: Clonidine 0.1mg tablet oral ordered
[2018-10-02] MEDS ORDERED: cloNIDine HCL 0.1 MG TABLET PO ONE (08:02)
[2018-10-02 09:51] LABS: HEMATOCRIT 44.7 % (35.4-49); HEMOGLOBIN 15.1 GM/dL (11.7-16.9); MCH 30.9 pg (25.7-33.7); MCHC 33.9 g/dl (32.0-35.9); MEAN CELL VOLUME 91.3 fl (80-96); MEAN PLT VOLUME 7.5 fl (7.5-11.1); PLATELET COUNT 310 K/MM3 (134-434); RBC 4.89 M/mm3 (4.00-5.60); RDW 12.8 % (11.9-15.9); WHITE BLOOD COUNT 5.5 K/mm3 (4.0-10.0)
[2018-10-02] MEDS: amLODIPine BESYLATE 10 MG TABLET (FP) PO SCH (10:10)
[2018-10-02] MEDS: PRENATAL VITAMINS W/ FOLIC ACID TABLET (FP) PO SCH (10:10)
[2018-10-02] MEDS: ASPIRIN 81 MG CHEWABLE TABLETS PO SCH (10:10)
[2018-10-02 10:29] LABS: ALBUMIN 4.1 g/dl (3.4-5.0); ALK PHOS 155 U/L (45-117); ANION GAP 18 MMOL/L (8-16); BILIRUBIN,TOTAL 0.3 mg/dL (0.2-1); BLOOD UREA NITROGEN 9 mg/dL (7-18); CALCIUM 8.4 mg/dL (8.5-10.1); CHLORIDE 96 mmol/L (98-107); CO2 19 mmol/L (21-32); CREATININE 0.8 mg/dL (0.55-1.3); GLUCOSE,RANDOM 207 mg/dL (74-106); POTASSIUM 3.9 mmol/L (3.5-5.1); SGOT/AST 25 U/L (15-37); SGPT/ALT 25 U/L (13-61); SODIUM 133 mmol/L (136-145); TOT PROT 7.8 g/dl (6.4-8.2)
--- NOTE | 2018-10-02 11:02 | PN ---
S CIWA - CIWA Score Nausea/Vomitin-Mild Nausea/No Vomiting Muscle Tremors: 3 Anxiety: 2 Agitation: 2 Paroxysmal Sweats: 1-Minimal Palms Moist Orientation: 1-Uncertain about Date Tacttile Disturbances: 1-Very Mild Itch/Numbness Auditory Disturbances: 0-None Visual Disturbances: 0-None Headache: 1-Very Mild CIWA-Ar Total Score: 12 [facility] Progress Note (SOAP) Subjective: tremor sweat gi distress restlessness anxiety Objective: 10/02/18 11:02 Vital Signs Temperature 97.9 F 10/02/18 09:08 Pulse Rate 113 H 10/02/18 09:08 Respiratory Rate 18 10/02/18 09:08 Blood Pressure 163/93 10/02/18 09:08 O2 Sat by Pulse Oximetry (%) Laboratory Last Values WBC 5.5 K/mm3 (4.0-10.0) 10/02/18 06:00 RBC 4.89 M/mm3 (4.00-5.60) 10/02/18 06:00 Hgb 15.1 GM/dL (11.7-16.9) 10/02/18 06:00 Hct 44.7 % (35.4-49) 10/02/18 06:00 MCV 91.3 fl (80-96) 10/02/18 06:00 MCH 30.9 pg (25.7-33.7) 10/02/18 06:00 MCHC 33.9 g/dl (32.0-35.9) 10/02/18 06:00 RDW 12.8 % (11.9-15.9) 10/02/18 06:00 Plt Count 310 K/MM3 (134-434) 10/02/18 06:00 MPV 7.5 fl (7.5-11.1) 10/02/18 06:00 Sodium 133 mmol/L (136-145) L 10/02/18 06:00 Potassium 3.9 mmol/L (3.5-5.1) 10/02/18 06:00 Chloride 96 mmol/L (98-107) L 10/02/18 06:00 Carbon Dioxide 19 mmol/L (21-32) L 10/02/18 06:00 Anion Gap 18 MMOL/L (8-16) H 10/02/18 06:00 BUN 9 mg/dL (7-18) 10/02/18 06:00 Creatinine 0.8 mg/dL (0.55-1.3) 10/02/18 06:00 Creat Clearance w eGFR > 60 (>60) 10/02/18 06:00 POC Glucometer 177 UNITS (80-120) 10/02/18 05:20 Random Glucose 207 mg/dL (74-106) H 10/02/18 06:00 Calcium 8.4 mg/dL (8.5-10.1) L 10/02/18 06:00 Total Bilirubin 0.3 mg/dL (0.2-1) 10/02/18 06:00 AST 25 U/L (15-37) 10/02/18 06:00 ALT 25 U/L (13-61) 10/02/18 06:00 Alkaline Phosphatase 155 U/L (45-117) H 10/02/18 06:00 Total Protein 7.8 g/dl (6.4-8.2) 10/02/18 06:00 Albumin 4.1 g/dl (3.4-5.0) 10/02/18 06:00 lab noted Assessment: 10/02/18 11:03 alcohol withdrawal sx hypertension Plan: continue alcohol detox metoprolol 50 mg bid
[2018-10-02] MEDS: THIAMINE HCL 100 MG TABLET (FP) PO SCH (22:05)
[2018-10-02] MEDS: MELATONIN 5 MG TABLETS PO PRN (22:05)
[2018-10-02] MEDS: ROSUVASTATIN CA 10 MG TABLET (FP) PO SCH (22:05)
[2018-10-03] MEDS: chlordiazePOXIDE HCL 25 MG CAPSULE PO SCH ×2 (05:28→10:46)
[2018-10-03] MEDS: metFORMIN HCL 500 MG TABLET (FP) PO SCH ×2 (06:34→16:52)
--- NOTE | 2018-10-03 07:35 | CONSULT ---
[facility] Psychiatric Consult - Data Date of interview: 10/03/18 Admission source: [facility] Identifying data: this is a 63 years old obese male, single, father of two, on SSI support, with multipls medical poblems, with psychiatric hospitalization history, history of Bipolarr Disorder, with alcohol dependence,reporting withdrawal symptoms and seeking detox,reports last detox on 09/09/18 to was not completed. syncope alcohol related. history of type 2 dm, hypertension,bph,ca of prostate with retained biswas catheter for 6 moths. asthma. hepatitis c. bipolar disorder. longest period of sobriety 16 years. frequent falls Substance Abuse History: Smoking history: Never smoked. Have you smoked in the past 12 months: No. Aproximately how many cigarettes per day: 0. Cigars Per Day: 0. Hx Chewing Tobacco Use: No. - Substance & Tx. History. Hx Alcohol Use : Yes. Hx Substance Use: No. Substance Use Type: Alcohol. Hx Substance Use Treatment: Yes ([facility] 09/09/18 to 09/11/18 not complicated). - Substances Abused. Alcohol-beer. Route: Oral. Frequency: Daily. Amount used: 3-6 pks. (25 oz.). Age of first use: 13. Date of Last Use: 10/01/18 Medical History: History of [place] Fracture, DM-II, Hyoercholesterolemia, Hypelipidemia,m Obesity, Prostate Cance history, COPD, Syncope history, Asthma, HTN. Psychiatric History: Patioent reports history of depression and anxiety, as per chart there is a history of Biupolar Disorder and Schizoaffective Disorder, reports most recen [id number] psychiatric admission on more then 10 uyears ado. Patient denies suicidal, homicidal history. Patient reports taking prior to admission seroqule 50mg po qhs, refusing take it during detox protocol Physical/Sexual Abuse/Trauma History: Denies Additional Comment: Observation. Detox Unit Care Protocol Mental Status Exam - Mental Status Exam Alert and Oriented to: Place, Person Cognitive Function: Fair Patient Appearance: Unkempt Mood: Sad Affect: Mood Congruent Patient Behavior: Cooperative Speech Pattern: Appropriate Voice Loudness: Mildly Soft/Quiet Thought Process: Goal Oriented Thought Disorder: Being Controlled Hallucinations: Denies Suicidal Ideation: Denies Homicidal Ideation: Denies Insight/Judgement: Fair Sleep: Difficulty falling asleep Appetite: Weight gain Muscle strength/Tone: Mild Hypotonicity Gait/Station: Shuffling Additional Comments: Observation. Detox Unit Care Protocol Psychiatric Findings - Problem List ([place] 1, 2,3) (1) Syncope Current Visit: Yes Status: Acute (2) Alcohol dependence Current Visit: No Status: Acute (3) Alcohol dependence with uncomplicated intoxication Current Visit: No Status: Acute (4) Alcohol dependence with uncomplicated withdrawal Current Visit: No Status: Acute (5) Bipolar disorder (manic depression) Current Visit: No Status: Acute (6) Syncope Current Visit: No Status: Acute (7) Alcohol dependence, episodic drinking behavior Current Visit: No Status: Chronic (8) Asthma Current Visit: No Status: Chronic Qualifiers: Asthma severity: mild Asthma persistence: intermittent Asthma complication type: uncomplicated Qualified Code(s): J45.20 - Mild intermittent asthma, uncomplicated (9) CA of prostate Current Visit: No Status: Chronic (10) COPD exacerbation Current Visit: No Status: Chronic (11) HTN (hypertension) Current Visit: No Status: Chronic Qualifiers: Hypertension type: essential hypertension Qualified Code(s): I10 - Essential (primary) hypertension (12) Hypercholesterolemia Current Visit: No Status: Chronic (13) Hyperlipidemia Current Visit: No Status: Chronic Qualifiers: Hyperlipidemia type: unspecified Qualified Code(s): E78.5 - Hyperlipidemia , unspecified (14) Obesity Current Visit: No Status: Chronic (15) Pelvic fracture Current Visit: No Status: Chronic (16) Schizoaffective disorder Current Visit: No Status: Chronic (17) Schizophrenia Current Visit: No Status: Chronic Comment: Self reports. (18) Type 2 diabetes mellitus Current Visit: No Status: Chronic Qualifiers: Diabetes mellitus halfway insulin use: without halfway use Diabetes mellitus complication status: without complication Qualified Code(s): E11.9 - Type 2 diabetes mellitus without complications Comment:
[2018-10-03] MEDS: ASPIRIN 81 MG CHEWABLE TABLETS PO SCH (10:46)
[2018-10-03] MEDS: amLODIPine BESYLATE 10 MG TABLET (FP) PO SCH (10:46)
[2018-10-03] MEDS: PRENATAL VITAMINS W/ FOLIC ACID TABLET (FP) PO SCH (10:46)
--- NOTE | 2018-10-03 11:54 | PN ---
S CIWA - CIWA Score Nausea/Vomitin-Mild Nausea/No Vomiting Muscle Tremors: 2 Anxiety: 3 Agitation: 2 Paroxysmal Sweats: 1-Minimal Palms Moist Orientation: 0-Oriented Tacttile Disturbances: 0-None Auditory Disturbances: 0-None Visual Disturbances: 0-None Headache: 0-None Present CIWA-Ar Total Score: 9 S Progress Note (SOAP) Subjective: tremor sweat restlessness trouble sleep at night Objective: 10/03/18 11:54 Vital Signs Temperature 97.7 F 10/03/18 09:34 Pulse Rate 92 H 10/03/18 09:34 Respiratory Rate 18 10/03/18 09:34 Blood Pressure 158/90 10/03/18 09:34 O2 Sat by Pulse Oximetry (%) Laboratory Last Values WBC 5.5 K/mm3 (4.0-10.0) 10/02/18 06:00 RBC 4.89 M/mm3 (4.00-5.60) 10/02/18 06:00 Hgb 15.1 GM/dL (11.7-16.9) 10/02/18 06:00 Hct 44.7 % (35.4-49) 10/02/18 06:00 MCV 91.3 fl (80-96) 10/02/18 06:00 MCH 30.9 pg (25.7-33.7) 10/02/18 06:00 MCHC 33.9 g/dl (32.0-35.9) 10/02/18 06:00 RDW 12.8 % (11.9-15.9) 10/02/18 06:00 Plt Count 310 K/MM3 (134-434) 10/02/18 06:00 MPV 7.5 fl (7.5-11.1) 10/02/18 06:00 Sodium 133 mmol/L (136-145) L 10/02/18 06:00 Potassium 3.9 mmol/L (3.5-5.1) 10/02/18 06:00 Chloride 96 mmol/L (98-107) L 10/02/18 06:00 Carbon Dioxide 19 mmol/L (21-32) L 10/02/18 06:00 Anion Gap 18 MMOL/L (8-16) H 10/02/18 06:00 BUN 9 mg/dL (7-18) 10/02/18 06:00 Creatinine 0.8 mg/dL (0.55-1.3) 10/02/18 06:00 Creat Clearance w eGFR > 60 (>60) 10/02/18 06:00 POC Glucometer 154 UNITS (80-120) 10/03/18 05:30 Random Glucose 207 mg/dL (74-106) H 10/02/18 06:00 Calcium 8.4 mg/dL (8.5-10.1) L 10/02/18 06:00 Total Bilirubin 0.3 mg/dL (0.2-1) 10/02/18 06:00 AST 25 U/L (15-37) 10/02/18 06:00 ALT 25 U/L (13-61) 10/02/18 06:00 Alkaline Phosphatase 155 U/L (45-117) H 10/02/18 06:00 Total Protein 7.8 g/dl (6.4-8.2) 10/02/18 06:00 Albumin 4.1 g/dl (3.4-5.0) 10/02/18 06:00 RPR Titer Nonreactive (NONREACTIVE) 10/02/18 06:00 lab noted Assessment: 10/03/18 12:16 withdrawal sx diabetes II hypertension Plan: continue detox lisinopril 5 mg
[2018-10-03] MEDS: LISINOPRIL 5 MG TABLET (FP) PO SCH (12:58)
[2018-10-03] MEDS: chlordiazePOXIDE 5 MG CAPSULE PO SCH ×2 (16:53→22:11)
[2018-10-03] MEDS: THIAMINE HCL 100 MG TABLET (FP) PO SCH (22:11)
[2018-10-03] MEDS: ROSUVASTATIN CA 10 MG TABLET (FP) PO SCH (22:11)
[2018-10-04] MEDS: chlordiazePOXIDE 5 MG CAPSULE PO SCH ×2 (05:22→10:31)
[2018-10-04] MEDS: metFORMIN HCL 500 MG TABLET (FP) PO SCH ×2 (06:36→17:47)
[2018-10-04] MEDS: PRENATAL VITAMINS W/ FOLIC ACID TABLET (FP) PO SCH (10:30)
[2018-10-04] MEDS: ASPIRIN 81 MG CHEWABLE TABLETS PO SCH (10:30)
[2018-10-04] MEDS: amLODIPine BESYLATE 10 MG TABLET (FP) PO SCH (10:30)
[2018-10-04] MEDS: LISINOPRIL 5 MG TABLET (FP) PO SCH ×2 (10:34→22:33)
[2018-10-04] MEDS: ALBUTEROL SO4 8 GM HFA INHALER IH PRN (12:18)
--- NOTE | 2018-10-04 12:35 | PN ---
[facility] Progress Note (SOAP) Subjective: feeling better no tremor less restlessness less sweat sleep better at night Objective: 10/04/18 12:34 Vital Signs Temperature 98.2 F 10/04/18 08:56 Pulse Rate 94 H 10/04/18 08:57 Respiratory Rate 18 12 08:57 Blood Pressure 155/102 H 10/04/18 08:57 O2 Sat by Pulse Oximetry (%) Laboratory Last Values WBC 5.5 K/mm3 (4.0-10.0) 10/02/18 06:00 RBC 4.89 M/mm3 (4.00-5.60) 10/02/18 06:00 Hgb 15.1 GM/dL (11.7-16.9) 10/02/18 06:00 Hct 44.7 % (35.4-49) 10/02/18 06:00 MCV 91.3 fl (80-96) 10/02/18 06:00 MCH 30.9 pg (25.7-33.7) 10/02/18 06:00 MCHC 33.9 g/dl (32.0-35.9) 10/02/18 06:00 RDW 12.8 % (11.9-15.9) 10/02/18 06:00 Plt Count 310 K/MM3 (134-434) 10/02/18 06:00 MPV 7.5 fl (7.5-11.1) 10/02/18 06:00 Sodium 133 mmol/L (136-145) L 10/02/18 06:00 Potassium 3.9 mmol/L (3.5-5.1) 10/02/18 06:00 Chloride 96 mmol/L (98-107) L 10/02/18 06:00 Carbon Dioxide 19 mmol/L (21-32) L 10/02/18 06:00 Anion Gap 18 MMOL/L (8-16) H 10/02/18 06:00 BUN 9 mg/dL (7-18) 10/02/18 06:00 Creatinine 0.8 mg/dL (0.55-1.3) 10/02/18 06:00 Creat Clearance w eGFR > 60 (>60) 10/02/18 06:00 POC Glucometer 159 UNITS (80-120) 10/04/18 05:24 Random Glucose 207 mg/dL (74-106) H 10/02/18 06:00 Calcium 8.4 mg/dL (8.5-10.1) L 10/02/18 06:00 Total Bilirubin 0.3 mg/dL (0.2-1) 10/02/18 06:00 AST 25 U/L (15-37) 10/02/18 06:00 ALT 25 U/L (13-61) 10/02/18 06:00 Alkaline Phosphatase 155 U/L (45-117) H 10/02/18 06:00 Total Protein 7.8 g/dl (6.4-8.2) 10/02/18 06:00 Albumin 4.1 g/dl (3.4-5.0) 10/02/18 06:00 RPR Titer Nonreactive (NONREACTIVE) 10/02/18 06:00 lab noted 10/04/18 12:38 hypertension increase lisinopril to 5 mg bid Assessment: 10/04/18 12:39 mild withdrawal sx Plan: medically supervised detox
[2018-10-04] MEDS: chlordiazePOXIDE HCL 10 MG CAPSULE PO SCH ×2 (17:46→22:33)
[2018-10-04] MEDS: THIAMINE HCL 100 MG TABLET (FP) PO SCH (22:32)
[2018-10-04] MEDS: MELATONIN 5 MG TABLETS PO PRN (22:32)
[2018-10-04] MEDS: ROSUVASTATIN CA 10 MG TABLET (FP) PO SCH (22:32)
[2018-10-05] MEDS: chlordiazePOXIDE HCL 10 MG CAPSULE PO SCH ×2 (05:46→11:00)
[2018-10-05] MEDS: metFORMIN HCL 500 MG TABLET (FP) PO SCH (06:27)
--- NOTE | 2018-10-05 08:59 | PN ---
[facility] Progress Note (SOAP) Subjective: I'm feeling better, no shakes or sweats Objective: 10/05/18 08:57 Vital Signs Temperature 97.9 F 10/05/18 06:00 Pulse Rate 75 10/05/18 06:00 Respiratory Rate 18 10/05/18 06:00 Blood Pressure 134/78 10/05/18 06:00 O2 Sat by Pulse Oximetry (%) Laboratory Tests 10/01/18 10/01/18 10/02/18 11:53 16:20 05:20 WBC RBC Hgb Hct MCV MCH MCHC RDW Plt Count MPV Sodium Potassium Chloride Carbon Dioxide Anion Gap BUN Creatinine Creat Clearance w eGFR POC Glucometer 207 192 177 Random Glucose Calcium Total Bilirubin AST ALT Alkaline Phosphatase Total Protein Albumin RPR Titer 10/02/18 10/02/18 10/02/18 06:00 06:00 06:00 WBC 5.5 RBC 4.89 Hgb 15.1 Hct 44.7 MCV 91.3 MCH 30.9 MCHC 33.9 RDW 12.8 Plt Count 310 MPV 7.5 Sodium 133 L Potassium 3.9 Chloride 96 L Carbon Dioxide 19 L Anion Gap 18 H BUN 9 Creatinine 0.8 Creat Clearance w eGFR > 60 POC Glucometer Random Glucose 207 H Calcium 8.4 L Total Bilirubin 0.3 AST 25 ALT 25 Alkaline Phosphatase 155 H Total Protein 7.8 Albumin 4.1 RPR Titer Nonreactive 10/02/18 10/03/18 10/03/18 16:40 05:30 16:48 WBC RBC Hgb Hct MCV MCH MCHC RDW Plt Count MPV Sodium Potassium Chloride Carbon Dioxide Anion Gap BUN Creatinine Creat Clearance w eGFR POC Glucometer 214 154 129 Random Glucose Calcium Total Bilirubin AST ALT Alkaline Phosphatase Total Protein Albumin RPR Titer 10/04/18 10/04/18 10/05/18 05:24 17:05 05:45 WBC RBC Hgb Hct MCV MCH MCHC RDW Plt Count MPV Sodium Potassium Chloride Carbon Dioxide Anion Gap BUN Creatinine Creat Clearance w eGFR POC Glucometer 159 164 180 Random Glucose Calcium Total Bilirubin AST ALT Alkaline Phosphatase Total Protein Albumin RPR Titer pt aox3 in nad eatting breakfast in day room Assessment: 10/05/18 08:57 detox completed Plan: cont fluids d/c from detox rehab at [facility]
--- NOTE | 2018-10-05 09:04 | DS ---
[facility] Detox Discharge Summary Admission Date: 10/01/18 Discharge Date: 10/05/18 - History Present History: Alcohol Dependence - Physical Exam Results Vital Signs: Vital Signs Temperature 97.9 F 10/05/18 06:00 Pulse Rate 75 10/05/18 06:00 Respiratory Rate 18 10/05/18 06:00 Blood Pressure 134/78 10/05/18 06:00 O2 Sat by Pulse Oximetry (%) - Treatment Hospital Course: Detox Protocol Followed, Detoxed Safely, Responded well, Discharged Condition Good - Medication Discharge Medications: Ambulatory Orders Quetiapine Fumarate [Seroquel -] 50 mg PO HS #30 tablet 03/02/15 Aspirin [ASA -] 81 mg PO DAILY 06/08/15 Rosuvastatin [Crestor -] 10 mg PO HS 06/08/15 Amlodipine Besylate [Norvasc -] 10 mg PO DAILY 11/01/17 Albuterol Sulfate Inhaler - [Ventolin HFA Inhaler -] 2 inh PO Q4H PRN #1 inhaler 10/04/18 Lisinopril [Prinivil] 5 mg PO DAILY #14 tablet 10/04/18 Metoprolol Succinate [Toprol XL -] 50 mg PO DAILY #14 tab.sr.24h 10/04/18 metFORMIN HCL [Glucophage -] 500 mg PO BID #60 tablet 10/04/18 - Diagnosis (1) Alcohol dependence with uncomplicated withdrawal Current Visit: No Status: Chronic (2) Bipolar disorder (manic depression) Current Visit: No Status: Chronic Qualifiers: Current episode severity: unspecified (3) Asthma Current Visit: No Status: Chronic Qualifiers: Asthma severity: mild Asthma persistence: intermittent Asthma complication type: uncomplicated Qualified Code(s): J45.20 - Mild intermittent asthma, uncomplicated (4) CA of prostate Current Visit: No Status: Chronic (5) COPD (chronic obstructive pulmonary disease) Current Visit: No Status: Chronic Qualifiers: COPD type: unspecified COPD Qualified Code(s): J44.9 - Chronic obstructive pulmonary disease, unspecified (6) HTN (hypertension) Current Visit: Yes Status: Chronic Qualifiers: Hypertension type: essential hypertension Qualified Code(s): I10 - Essential (primary) hypertension (7) Obesity Current Visit: Yes Status: Chronic (8) Cunningham catheter in place Current Visit: No Status: Acute (9) Type 2 diabetes mellitus Current Visit: Yes Status: Chronic Qualifiers: Diabetes mellitus mcc insulin use: without mcc use Diabetes mellitus complication status: without complication Qualified Code(s): E11.9 - Type 2 diabetes mellitus without complications - AMA Did Patient Leave Against Medical Advice: No
[2018-10-05] MEDS: ASPIRIN 81 MG CHEWABLE TABLETS PO SCH (09:21)
[2018-10-05] MEDS: PRENATAL VITAMINS W/ FOLIC ACID TABLET (FP) PO SCH (09:21)
[2018-10-05] MEDS: LISINOPRIL 5 MG TABLET (FP) PO SCH (09:21)
[2018-10-05] MEDS: amLODIPine BESYLATE 10 MG TABLET (FP) PO SCH (09:21)
[2018-10-05 14:19] VITALS: BP 144/79; PULSE 93; TEMP 97.9
== END 2018-10-05 15:25 | disposition other institution (70) | DRG 775 ==
LOC: YASAS 10:18 → Y6N 11:58
PROC: HZ2ZZZZ Detoxification Services for Substance Abuse Treatment (ICD-10-PCS; principal; 2018-10-01)
PROC: HZ2ZZZZ Detoxification Services for Substance Abuse Treatment (ICD-10-PCS; 2018-10-01)
DX: F10.230 Alcohol dependence with withdrawal, uncomplicated (principal); F20.9 Schizophrenia, unspecified; F31.9 Bipolar disorder, unspecified; R55 Syncope and collapse; I10 Essential (primary) hypertension; E78.00 Pure hypercholesterolemia, unspecified; E78.5 Hyperlipidemia, unspecified; E11.9 Type 2 diabetes mellitus without complications; Z79.84 Long term (current) use of oral hypoglycemic drugs; J44.1 Chronic obstructive pulmonary disease with (acute) exacerbation; J45.20 Mild intermittent asthma, uncomplicated; B18.2 Chronic viral hepatitis C; Z91.81 History of falling; E66.9 Obesity, unspecified; Z68.34 Body mass index [BMI] 34.0-34.9, adult; Z85.46 Personal history of malignant neoplasm of prostate; Z96.0 Presence of urogenital implants; Z91.041 Radiographic dye allergy status
CPT/HCPCS: 36415; 80053; 82962; 85027; 86593; J0735

== ENCOUNTER 2018-10-05 15:42 | Inpatient (IN) | payer OTHER ==
[2018-10-05 16:02] VITALS: BMI 35.7
[2018-10-05] MEDS ORDERED: MELATONIN 5 MG TABLETS PO PRN (22:00)
--- NOTE | 2018-10-05 23:41 | HP ---
[facility] Rehab Assess/Revision - Admission History Admitted to Rehab from: [facility] Date of Admission to Rehab: 10/05/18 - Vital signs Vital Signs: Vital Signs Period Temp Pulse Resp BP Sys/Grimm Pulse Ox Last 24 Hr 98.2 F 87 20 147/79 - Findings Detox History & Physical reviewed: Yes Concur with findings: Yes Inpatient Rehab Admission - Initial Determination Are CD services needed?: Yes Free of communicable disease: Yes Not in need of hospitalization: Yes - Rehab Admission Criteria Comorbidities: Yes Lacks judgement: No Patient is meeting Inpatient Rehab admission criteria:: Yes
[2018-10-05] MEDS ORDERED: LOPERAMIDE HCL 2 MG CAPSULE PO PRN (23:47)
[2018-10-05] MEDS ORDERED: MENTHOL/PHENOL 1 EACH UD MM PRN (23:47)
[2018-10-05] MEDS ORDERED: hydrOXYzine PAMOATE 50 MG CAPSULE (FP) PO PRN (23:47)
[2018-10-05] MEDS ORDERED: MAGNESIUM CITRATE 300 ML BOTTLE PO PRN (23:47)
[2018-10-05] MEDS ORDERED: ACETAMINOPHEN 325 MG TABLET (FP) PO PRN (23:47)
[2018-10-05] MEDS ORDERED: IBUPROFEN 400 MG TABLET (FP) PO PRN (23:47)
[2018-10-05] MEDS ORDERED: MAGNESIUM HYDROX 2400MG/30ML ORAL SUSPENSION 30 ML CUP PO PRN (23:47)
[2018-10-05] MEDS ORDERED: MAG HYDROX/AL HYDROX/SIMETH 30 ML UNIT-DOSE CUP PO PRN (23:47)
[2018-10-06] MEDS: metFORMIN HCL 500 MG TABLET (FP) PO SCH ×2 (06:08→16:51)
[2018-10-06] MEDS: amLODIPine BESYLATE 10 MG TABLET (FP) PO SCH (10:19)
[2018-10-06] MEDS: PRENATAL VITAMINS W/ FOLIC ACID TABLET (FP) PO SCH (10:19)
[2018-10-06] MEDS: LISINOPRIL 5 MG TABLET (FP) PO SCH (10:19)
[2018-10-06] MEDS: ASPIRIN 81 MG CHEWABLE TABLETS PO SCH (10:19)
[2018-10-06] MEDS ORDERED: ROSUVASTATIN CA 10 MG TABLET (FP) PO SCH (22:00)
[2018-10-06] MEDS ORDERED: THIAMINE HCL 100 MG TABLET (FP) PO SCH (22:00)
[2018-10-06] MEDS ORDERED: ROSUVASTATIN CA 20 MG TABLET (FP) PO SCH (22:00)
[2018-10-07] MEDS: metFORMIN HCL 500 MG TABLET (FP) PO SCH (06:16)
[2018-10-07 06:55] VITALS: TEMP 98.6
[2018-10-07] MEDS: LISINOPRIL 5 MG TABLET (FP) PO SCH (10:03)
[2018-10-07] MEDS: amLODIPine BESYLATE 10 MG TABLET (FP) PO SCH (10:03)
[2018-10-07] MEDS: PRENATAL VITAMINS W/ FOLIC ACID TABLET (FP) PO SCH (10:03)
[2018-10-07] MEDS: ASPIRIN 81 MG CHEWABLE TABLETS PO SCH (10:03)
[2018-10-07 12:02] VITALS: BP 139/72; PULSE 88
== END 2018-10-07 12:18 | disposition left against medical advice (07) | DRG 770 ==
LOC: YASAS 15:42 → Y5N 15:44
PROVIDERS: ADMIT Psychiatry & Neurology Psychiatry; ATTEND Psychiatry & Neurology Psychiatry
PROC: HZ42ZZZ Group Counseling for Substance Abuse Treatment, Cognitive-Behavioral (ICD-10-PCS; principal; 2018-10-05)
DX: F10.230 Alcohol dependence with withdrawal, uncomplicated (principal); F31.9 Bipolar disorder, unspecified; I10 Essential (primary) hypertension; E78.00 Pure hypercholesterolemia, unspecified; E11.9 Type 2 diabetes mellitus without complications; Z79.84 Long term (current) use of oral hypoglycemic drugs; J45.20 Mild intermittent asthma, uncomplicated; R55 Syncope and collapse; E66.9 Obesity, unspecified; Z68.34 Body mass index [BMI] 34.0-34.9, adult; Z85.46 Personal history of malignant neoplasm of prostate; Z96.0 Presence of urogenital implants
CPT/HCPCS: 82962

== ENCOUNTER 2020-05-07 12:31 | Inpatient (IN) | payer OTHER ==
--- NOTE | 2020-05-07 12:39 | BHS.RME ---
Substance Use & Tx History - Substance Use History Alcohol Substance amount: 10-25 oz beers Frequency of use: Daily Substance route: Oral Date of Last Use: 05/06/20 - Last Treatment Date of last treatment: 2017 Physical/Psych/Mental Status - Behavior General Behavior: Increased activity (restlessness, agitation) Eye Contact: Normal - Cooperativeness Cooperativeness: Cooperative - Thinking Thought Processes: Tight, Logical, Goal Directed - Physical Health Problems Is patient presently having any pain?: No Does patient presently have any injuries (include location): No Does patient currently have a fever: No Is patient : No CIWA Nausea/Vomitin-No Nausea/No Vomiting Muscle Tremors: 1-None Visible, but [place] Anxiety: 4-Mod. Anxious/Guarded Agitation: 3 Paroxysmal Sweats: 4-Forehead w/Sweat Beads Orientation: 0-Oriented Tacttile Disturbances: 0-None Auditory Disturbances: 0-None Visual Disturbances: 0-None Headache: 1-Very Mild CIWA-Ar Total Score: 13
--- NOTE | 2020-05-07 13:19 | HP ---
CIWA Score Nausea/Vomitin-No Nausea/No Vomiting Muscle Tremors: 1-None Visible, but [place] Anxiety: 4-Mod. Anxious/Guarded Agitation: 3 Paroxysmal Sweats: 4-Forehead w/Sweat Beads Orientation: 0-Oriented Tacttile Disturbances: 0-None Auditory Disturbances: 0-None Visual Disturbances: 0-None Headache: 1-Very Mild CIWA-Ar Total Score: 13 - Admission Criteria OASAS Guidelines: Admission for Medically Managed Detox: Requires at least one of the followin. CIWA greater than 12 2. Seizures within the past 24 hours 3. Delirium tremens within the past 24 hours 4. Hallucinations within the past 24 hours 5. Acute intervention needed for co occurring medical disorder 6. Acute intervention needed for co occurring psychiatric disorder 7. Severe withdrawal that cannot be handled at a lower level of care (continued vomiting, continued diarrhea, abnormal vital signs) requiring intravenous medication and/or fluids 8. Admitting History and Physical - Admission Chief Complaint: Mr. Brewer is a 64 yo man who presents to [facility] stating "I'm trying to stop drinking alcohol", "my girlfriend says she will leave me if I don't stop". History of Present Illness: Mr. Brewer is a 64 yo man who presents to [facility] stating "I'm trying to stop drinking alcohol", "my girlfriend says she will leave me if I don't stop". PMH:Asthma, DM, HTN, HLD, h/o prostate cancer and chemotherapy PSH: appendectomy 1984, bilateral inguinal hernia repair, left ankel fracture with plates 2009, prostatectomy 2018 with indewelling Cunningham catheter 05/2018, changed monthly, followed by Urology at [facility] Psych: bipolar, insomnia SoC: own apartment in [place], alone x 5 years Legal: none - Substance Use History Alcohol Substance amount: 10-25 oz beers Frequency of use: Daily Substance route: Oral Date of Last Use: 05/06/20 First use age 14 y. No seizure. Multiple blackouts, last was one month ago. 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 - Last Treatment Date of last treatment: 2017 History Source: Patient Limitations to Obtaining History: No Limitations - Smoking History Smoking history: Never smoked Have you smoked in the past 12 months: No Aproximately how many cigarettes per day: 0 - Alcohol/Substance Use Hx Alcohol Use: Yes Admission ROS S - HPI Allergies/Adverse Reactions: Allergies Allergy/AdvReac Type Severity Reaction Status Date / Time Iodinated Contrast Media Allergy Severe Rash Verified 10/05/18 15:44 [Iodinated Contrast- Oral and IV Dye] IV dye Allergy Severe Rash Uncoded 10/05/18 15:44 Exam Limitations: No Limitations - Ebola screening Have you been sick,other than usual withdrawal symptoms: No Do you have a fever: No - Review of Systems Constitutional: Changes in sleep (insomnia since age 40 y) EENT: reports: Other (right ear pain, bug in left ear last week he tried to put in a "nail professional but didn't do so good", denies left ear pain) Respiratory: reports: SOB with Exertion (he attributes to asthma) Cardiac: reports: No Symptoms Reported GI: reports: No Symptoms Reported : reports: Other (indwelling catheter since 2018) Musculoskeletal: reports: No Symptoms Reported Integumentary: reports: No Symptoms Reported Neuro: reports: Headache (left side he attributes to hitting his head on the fridge 2 days ago, no LOC) Endocrine: reports: Other (does not check glucose at home, in hospital 2 days ago for urinary catheter malfunction, glucose 115) Hematology: reports: Blood Clots (clot in bladder recently flushed urinary catheter, similar sx since prostatectomy) Psychiatric: reports: Anxious Patient History - Patient Medical History Hx Anemia: No Hx Asthma: Yes (Pt is on MDI) Hx Chronic Obstructive Pulmonary Disease (COPD): No Hx Cancer: No Hx Cardiac Disorders: No Hx Congestive Heart Failure: No Hx Hypertension: Yes (on meds) Hx Hypercholesterolemia: Yes (ON CRESTOR 10 MG HS) Hx Pacemaker: No HX Cerebrovascular Accident: No Hx Seizures: No Hx Dementia: No Hx Diabetes: Yes (Type II) Hx Gastrointestinal Disorders: No Hx Liver Disease: No Hx Genitourinary Disorders: Yes (Prostate CA) Hx Sexually Transmitted Disorders: No Hx Renal Disease (ESRD): No Hx Thyroid Disease: No Hx Human Immunodeficiency Virus (HIV): No (NEGATIVE HX last 2015) Hx Hepatitis C: No (REQUESTS TESTING ) Hx Depression: Yes Hx Suicide Attempt: No Hx Bipolar Disorder: Yes (seroquel 100mg hs) Hx Schizophrenia: No - Patient Surgical History Past Surgical History: Yes Hx Neurologic Surgery: No Hx Cataract Extraction: No Hx Cardiac Surgery: No Hx Lung Surgery: No Hx Breast Surgery: No Hx Breast Biopsy: No Hx Abdominal Surgery: Yes (bilateral inguinal hernia reapir in [facility] in 1984) Hx Appendectomy: Yes (1984 2 [facility]) Hx Cholecystectomy: No Hx Genitourinary Surgery: No Hx Section: No Hx Orthopedic Surgery: No Other Surgical History: left ankle surgery with titanium plate 2009 @ [facility] Anesthesia Reaction: No - PPD History Date: 10/03/18 Results: 0 mm - Smoking Cessation Smoking history: Never smoked Have you smoked in the past 12 months: No Aproximately how many cigarettes per day: 0 Cigars Per Day: 0 Hx Chewing Tobacco Use: No Initiated information on smoking cessation: No Admission Physical Exam BHS - Physical General Appearance: Yes: No Apparent Distress, Nourished, Sweating, Anxious HEENTM: Yes: EOMI, Normocephalic, Tm's normal Respiratory: Yes: Lungs Clear, Normal Breath Sounds Neck: Yes: Within Normal Limits, Supple Breast: Yes: Breast Exam Deferred Cardiology: Yes: Regular Rhythm, Regular Rate, S1, S2 Abdominal: Yes: Soft, Decreased BS, Protuberent Genitourinary: Yes: Other (catheter to leg bag, attached to right leg) Musculoskeletal: Yes: Gait Steady Extremities: Yes: Normal Capillary Refill, Non-Tender Neurological: Yes: Alert, Normal Mood/Affect, Normal Response Integumentary: Yes: Normal Color, Dry, Warm - Diagnostic (1) Alcohol dependence with withdrawal, uncomplicated Current Visit: Yes Status: Acute (2) Asthma Current Visit: Yes Status: Acute Qualifiers: Asthma severity: moderate Asthma persistence: persistent Asthma complication type: uncomplicated Qualified Code(s): J45.40 - Moderate persistent asthma, uncomplicated (3) Bipolar disorder Current Visit: Yes Status: Chronic Comment: Self reports (4) CA of prostate Current Visit: No Status: Chronic (5) Cunningham catheter in place Current Visit: No Status: Chronic (6) HTN (hypertension) Current Visit: No Status: Chronic Qualifiers: Hypertension type: essential hypertension (7) Hyperlipidemia Current Visit: No Status: Chronic Qualifiers: Hyperlipidemia type: unspecified Qualified Code(s): E78.5 - Hyperlipidemia, unspecified (8) Type 2 diabetes mellitus Current Visit: Yes Status: Chronic Qualifiers: Diabetes mellitus penitentiary insulin use: without penitentiary use Diabetes mellitus complication status: with unspecified complications Comment: Cleared for Admission S - Detox or Rehab [facility] Level of Care: Medically Managed Detox Regimen/Protocol: Librium Breathalyzer - Breathalyzer Breathalyzer: 0 Urine Drug Screen - Test Device Lot number: [id number] Expiration date: 06/29/21 - Control Is test valid?: Yes - Results Drug screen NEGATIVE: Yes Inpatient Rehab Admission - Rehab Decision to Admit Inpatient rehab admission?: No
[2020-05-07] MEDS ORDERED: IBUPROFEN 400 MG TABLET (FP) PO PRN (13:37)
[2020-05-07] MEDS ORDERED: METHOCARBAMOL 500 MG TABLET PO PRN (13:37)
[2020-05-07] MEDS ORDERED: ACETAMINOPHEN 325 MG TABLET (FP) PO PRN ×2 (13:37)
[2020-05-07] MEDS ORDERED: MAGNESIUM CITRATE 300 ML BOTTLE PO PRN (13:37)
[2020-05-07] MEDS ORDERED: MAG HYDROX/AL HYDROX/SIMETH 30 ML UNIT-DOSE CUP PO PRN (13:37)
[2020-05-07] MEDS ORDERED: MENTHOL/PHENOL 1 EACH UD MM PRN (13:37)
[2020-05-07] MEDS ORDERED: MAGNESIUM HYDROX 2400MG/30ML ORAL SUSPENSION 30 ML CUP PO PRN (13:37)
[2020-05-07] MEDS ORDERED: chlordiazePOXIDE HCL 25 MG CAPSULE PO PRN (13:37)
[2020-05-07] MEDS ORDERED: BISMUTH SUBSALICYLATE 262 MG/15 ML BTL PO PRN (13:37)
[2020-05-07] MEDS ORDERED: ONDANSETRON *ODT* 4 MG TABLET SL PRN (13:37)
[2020-05-07 14:04] VITALS: BMI 36.0
--- NOTE | 2020-05-07 14:54 | CONSULT ---
[facility] Psychiatric Consult - Data Date of interview: 05/07/20 Admission source: Self-referred Identifying data: Mr Brewer is a 64 years old male, father of 2 children, unemployed receiving SSI, domiciled living alone in an apartment in the [place] seeking detox treatment for alcohol Substance Abuse History: Reorts history of alcohol use. Refer to addiction counselor's summary for further information Medical History: Significant for bronchial asthma, hypertension, dyslipidemia, type 2 diabetes mellitus, history of appendectomy in 1984, bilateral inguinal hernia repair in 1984 and prostatectomy in 2018. Psychiatric History: Patient is known for multiple previous admissions to this facility. He reports that his first psychiatric contact occured in 1971 when he was admitted to [facility] due to suicidal attempt by trying to jump out of a window after his girlfriend left him. He was diagnosed with MDD and started on psychotropic medications. Later, his diagnosis was revised to Bipolar Disorder. Reports multiple subsequent psychiatric hospitalizations at various institutions including [facility], [facility], [facility], [facility] and [facility]. Reports that he used to receive OPD care at [facility] till 2014. Since then he only sees psychiatrist only during admissions to detox/rehab. His most recent psychiatric contact in this facility occured on 11/02/17 and he was prescribed Seroquel 50 mg/hs for insomnia. Reports 2 previous suicidal attempts both by trying to jump out of windows after conflict with diffrerent girlfriends. At present, denies experiencing psychotic , manic or depressive symptoms, S/H ideations. However, reports sleeping poorly. Requests medication other than Seroquel for insomnia Physical/Sexual Abuse/Trauma History: Denies history of abuse as a child or DV relationship as an adult Mental Status Exam - Mental Status Exam Alert and Oriented to: Time, Place, Person Cognitive Function: Fair Patient Appearance: Well Groomed Mood: Hopeful, Euthymic Affect: Appropriate Patient Behavior: Cooperative Speech Pattern: Garbled Voice Loudness: Normal Thought Process: Intact, Goal Oriented Thought Disorder: Not Present Hallucinations: Denies Suicidal Ideation: Denies Homicidal Ideation: Denies Insight/Judgement: Poor Sleep: Poorly Appetite: Fair Muscle strength/Tone: Normal Gait/Station: Normal Psychiatric Findings - Problem List (Brandon 1, 2,3) (1) Bipolar disorder Current Visit: Yes Status: Chronic Comment: Self reports (2) Alcohol-induced sleep disorder Current Visit: Yes Status: Acute (3) Alcohol dependence with withdrawal, uncomplicated Current Visit: Yes Status: Acute (4) Asthma Current Visit: Yes Status: Acute Qualifiers: Asthma severity: moderate Asthma persistence: persistent Asthma complication type: uncomplicated Qualified Code(s): J45.40 - Moderate persistent asthma, uncomplicated (5) Type 2 diabetes mellitus Current Visit: Yes Status: Chronic Qualifiers: Diabetes mellitus senior living insulin use: 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 2) Continue inpatient detoxification
[2020-05-07] MEDS ORDERED: TUBERCULIN PPD 5 TU/0.1ML VIAL ID ONE (15:06)
[2020-05-07] MEDS: hydrOXYzine PAMOATE 25 MG CAPSULE (FP) PO SCH ×3 (15:09→22:49)
[2020-05-07 16:53] LABS: HEMATOCRIT 36.5 % (35.4-49); HEMOGLOBIN 12.5 GM/dL (11.7-16.9); MCH 31.6 pg (25.7-33.7); MCHC 34.2 g/dl (32.0-35.9); MEAN CELL VOLUME 92.3 fl (80-96); MEAN PLT VOLUME 7.3 fl (7.5-11.1); PLATELET COUNT 249 K/MM3 (134-434); RBC 3.95 M/mm3 (4.00-5.60); RDW 14.1 % (11.9-15.9); WHITE BLOOD COUNT 5.5 K/mm3 (4.0-10.0)
[2020-05-07 17:11] LABS: ALBUMIN 3.8 g/dl (3.4-5.0); BILIRUBIN,TOTAL 0.8 mg/dL (0.2-1); BLOOD UREA NITROGEN 18.1 mg/dL (7-18); CALCIUM 9.1 mg/dL (8.5-10.1); POTASSIUM 3.9 mmol/L (3.5-5.1); TOT PROT 7.2 g/dl (6.4-8.2)
[2020-05-07] MEDS: chlordiazePOXIDE HCL 25 MG CAPSULE PO SCH ×2 (17:47→22:49)
[2020-05-07] MEDS: SUVOREXANT 10 MG TABLET PO PRN (22:49)
[2020-05-07] MEDS: MELATONIN 5 MG TABLETS PO SCH (22:49)
[2020-05-07] MEDS: THIAMINE HCL 100 MG TABLET (FP) PO SCH (22:49)
[2020-05-08] MEDS: hydrOXYzine PAMOATE 25 MG CAPSULE (FP) PO SCH ×5 (06:11→22:12)
[2020-05-08] MEDS: chlordiazePOXIDE HCL 25 MG CAPSULE PO SCH ×4 (06:12→22:12)
[2020-05-08] MEDS: PRENATAL VITAMINS W/ FOLIC ACID TABLET (FP) PO SCH (10:28)
--- NOTE | 2020-05-08 13:24 | EKG ---
Test Reason : Blood Pressure : / mmHG Vent. Rate : 079 BPM Atrial Rate : 079 BPM P-R Int : 150 ms QRS Dur : 080 ms QT Int : 386 ms P-R-T Axes : 062 -23 028 degrees QTc Int : 442 ms SINUS RHYTHM WITH OCCASIONAL PREMATURE ATRIAL COMPLEXES WHEN COMPARED WITH ECG OF 10-SEP-2018 00:05, PREMATURE ATRIAL COMPLEXES PRESENT Confirmed by LEIDY CANO MD ([id number]) on 05/08/2020 1:23:42 PM Referred By: Confirmed By:LEIDY CANO MD
--- NOTE | 2020-05-08 13:32 | PN ---
S CIWA - CIWA Score Nausea/Vomitin-No Nausea/No Vomiting Muscle Tremors: 4-Moderate,w/Arms Extend Anxiety: 4-Mod. Anxious/Guarded Agitation: 2 Paroxysmal Sweats: 1-Minimal Palms Moist Orientation: 0-Oriented Tacttile Disturbances: 0-None Auditory Disturbances: 0-None Visual Disturbances: 0-None Headache: 0-None Present CIWA-Ar Total Score: 11 BHS Progress Note (SOAP) Subjective: Pt is a 64 y/i male admitted to detox for alcohol withdrawal sx. c/o "Tiredness/weak, tremors,intermittent sleep Objective: 05/08/20 13:39 Vital Signs - 24 hr 05/07/20 05/07/20 05/07/20 14:01 15:09 16:55 Temperature 98.0 F 98.0 F Pulse Rate 80 81 86 Respiratory 18 18 18 Rate Blood Pressure 131/74 138/71 166/88 O2 Sat by Pulse 96 Oximetry (%) 05/07/20 05/08/20 05/08/20 21:17 06:47 10:00 Temperature 97.5 F L 97.3 F L 98.2 F Pulse Rate 76 77 82 Respiratory 18 18 16 Rate Blood Pressure 122/63 121/73 129/62 O2 Sat by Pulse 96 95 95 Oximetry (%) Laboratory Tests 05/07/20 05/07/20 05/07/20 13:30 13:30 13:30 WBC 5.5 RBC 3.95 L Hgb 12.5 Hct 36.5 D MCV 92.3 MCH 31.6 MCHC 34.2 RDW 14.1 D Plt Count 249 MPV 7.3 L Sodium 139 Potassium 3.9 Chloride 104 Carbon Dioxide 28 Anion Gap 7 L BUN 18.1 H Creatinine 1.0 Est GFR (CKD-EPI)AfAm 91.78 Est GFR (CKD-EPI)NonAf 79.19 POC Glucometer Random Glucose 169 H Calcium 9.1 Total Bilirubin 0.8 AST 17 ALT 19 Alkaline Phosphatase 114 Total Protein 7.2 Albumin 3.8 Syphilis Serology Non-reactive COVID-19 (SONIA) 05/07/20 05/07/20 14:31 14:40 WBC RBC Hgb Hct MCV MCH MCHC RDW Plt Count MPV Sodium Potassium Chloride Carbon Dioxide Anion Gap BUN Creatinine Est GFR (CKD-EPI)AfAm Est GFR (CKD-EPI)NonAf POC Glucometer 162 Random Glucose Calcium Total Bilirubin AST ALT Alkaline Phosphatase Total Protein Albumin Syphilis Serology COVID-19 (SONIA) Not detected Covid-19 not detected alert o x 3 nad oob ambulating with steady gait Assessment: 05/08/20 13:42 withdrawal sx Plan: cont detox increase po fluids as tolerated maintain safety
[2020-05-08] MEDS: ASPIRIN 81 MG CHEWABLE TABLETS PO SCH (14:15)
[2020-05-08] MEDS: amLODIPine BESYLATE 10 MG TABLET (FP) PO SCH (14:15)
[2020-05-08] MEDS: ALBUTEROL SO4 HFA INHALER IH PRN (14:15)
[2020-05-08] MEDS: THIAMINE HCL 100 MG TABLET (FP) PO SCH (22:12)
[2020-05-08] MEDS: MELATONIN 5 MG TABLETS PO SCH (22:12)
[2020-05-09] MEDS: chlordiazePOXIDE HCL 25 MG CAPSULE PO SCH ×4 (06:08→22:05)
[2020-05-09] MEDS: hydrOXYzine PAMOATE 25 MG CAPSULE (FP) PO SCH ×5 (06:08→22:05)
[2020-05-09] MEDS: amLODIPine BESYLATE 10 MG TABLET (FP) PO SCH (10:14)
[2020-05-09] MEDS: ASPIRIN 81 MG CHEWABLE TABLETS PO SCH (10:14)
[2020-05-09] MEDS: PRENATAL VITAMINS W/ FOLIC ACID TABLET (FP) PO SCH (10:14)
[2020-05-09] MEDS: ALBUTEROL SO4 HFA INHALER IH PRN ×2 (10:14→22:07)
--- NOTE | 2020-05-09 11:53 | PN ---
[facility] CIWA - CIWA Score Nausea/Vomitin-No Nausea/No Vomiting Muscle Tremors: 2 Anxiety: 3 Agitation: 3 Paroxysmal Sweats: 2 Orientation: 0-Oriented Tacttile Disturbances: 0-None Auditory Disturbances: 0-None Visual Disturbances: 0-None Headache: 0-None Present CIWA-Ar Total Score: 10 S Progress Note (SOAP) Subjective: Complaints of sweats, tremors, agitation and anxiety. Objective: 05/09/20 11:52 Vital Signs 05/09/20 05/09/20 06:53 08:47 Temperature 97.6 F 98.4 F Pulse Rate 81 75 Respiratory 18 20 Rate Blood Pressure 136/83 141/80 O2 Sat by Pulse 96 96 Oximetry (%) Laboratory Last Values WBC 5.5 K/mm3 (4.0-10.0) 05/07/20 13:30 RBC 3.95 M/mm3 (4.00-5.60) L 05/07/20 13:30 Hgb 12.5 GM/dL (11.7-16.9) 05/07/20 13:30 Hct 36.5 % (35.4-49) D 05/07/20 13:30 MCV 92.3 fl (80-96) 05/07/20 13:30 MCH 31.6 pg (25.7-33.7) 05/07/20 13:30 MCHC 34.2 g/dl (32.0-35.9) 05/07/20 13:30 RDW 14.1 % (11.9-15.9) D 05/07/20 13:30 Plt Count 249 K/MM3 (134-434) 05/07/20 13:30 MPV 7.3 fl (7.5-11.1) L 05/07/20 13:30 Sodium 139 mmol/L (136-145) 05/07/20 13:30 Potassium 3.9 mmol/L (3.5-5.1) 05/07/20 13:30 Chloride 104 mmol/L (98-107) 05/07/20 13:30 Carbon Dioxide 28 mmol/L (21-32) 05/07/20 13:30 Anion Gap 7 MMOL/L (8-16) L 05/07/20 13:30 BUN 18.1 mg/dL (7-18) H 05/07/20 13:30 Creatinine 1.0 mg/dL (0.55-1.3) 05/07/20 13:30 Est GFR (CKD-EPI)AfAm 91.78 05/07/20 13:30 Est GFR (CKD-EPI)NonAf 79.19 05/07/20 13:30 POC Glucometer 147 UNITS (80-120) 05/09/20 06:07 Random Glucose 169 mg/dL (74-106) H 05/07/20 13:30 Calcium 9.1 mg/dL (8.5-10.1) 05/07/20 13:30 Total Bilirubin 0.8 mg/dL (0.2-1) 05/07/20 13:30 AST 17 U/L (15-37) 05/07/20 13:30 ALT 19 U/L (13-61) 05/07/20 13:30 Alkaline Phosphatase 114 U/L (45-117) 05/07/20 13:30 Total Protein 7.2 g/dl (6.4-8.2) 05/07/20 13:30 Albumin 3.8 g/dl (3.4-5.0) 05/07/20 13:30 Syphilis Serology Non-reactive (NONREACTIVE) 05/07/20 13:30 COVID-19 (SONIA) Not detected (Not Detected) 05/07/20 14:40 Labs noted. Assessment: 05/09/20 11:52 Alert and oriented x3, in no acute respiratory distress. Full ROM, ambulating in the unit. Mild withdrawal symptoms. Plan: Continue detox protocol.
[2020-05-09] MEDS: THIAMINE HCL 100 MG TABLET (FP) PO SCH (22:05)
[2020-05-09] MEDS: SUVOREXANT 10 MG TABLET PO PRN (22:05)
[2020-05-09] MEDS: MELATONIN 5 MG TABLETS PO SCH (22:05)
[2020-05-10] MEDS ORDERED: chlordiazePOXIDE HCL 10 MG CAPSULE PO PRN
[2020-05-10] MEDS: chlordiazePOXIDE HCL 10 MG CAPSULE PO SCH ×4 (07:03→22:11)
[2020-05-10] MEDS: hydrOXYzine PAMOATE 25 MG CAPSULE (FP) PO SCH ×4 (07:04→17:48)
[2020-05-10] MEDS: amLODIPine BESYLATE 10 MG TABLET (FP) PO SCH (10:26)
[2020-05-10] MEDS: PRENATAL VITAMINS W/ FOLIC ACID TABLET (FP) PO SCH (10:26)
[2020-05-10] MEDS: ASPIRIN 81 MG CHEWABLE TABLETS PO SCH (10:26)
--- NOTE | 2020-05-10 14:10 | PN ---
S CIWA - CIWA Score Nausea/Vomitin-Mild Nausea/No Vomiting Muscle Tremors: 1-None Visible, but [place] Anxiety: 1-Mildly Anxious Agitation: 0-Normal Activity Paroxysmal Sweats: 1-Minimal Palms Moist Orientation: 0-Oriented Tacttile Disturbances: 1-Very Mild Itch/Numbness Auditory Disturbances: 0-None Visual Disturbances: 2-Mild Sensitivity Headache: 2-Mild CIWA-Ar Total Score: 9 BHS Progress Note (SOAP) Subjective: 64 years old male admitted on 05/07/20 for alcohol withdrawal sx management treating with librium detox regiment tremor anxiety restlessness slept ok last night Objective: 05/10/20 14:07 Vital Signs - 24 hr 05/09/20 05/09/20 05/10/20 17:01 20:59 06:00 Temperature 98.0 F 97.5 F L Pulse Rate 83 84 Respiratory 20 18 Rate Blood Pressure 133/68 131/62 O2 Sat by Pulse 97 95 96 Oximetry (%) 05/10/20 05/10/20 05/10/20 06:59 09:20 12:45 Temperature 97.5 F L 98.0 F 98.4 F Pulse Rate 84 87 82 Respiratory 18 20 18 Rate Blood Pressure 129/74 134/85 125/73 O2 Sat by Pulse 96 Oximetry (%) Laboratory Tests 05/07/20 05/07/20 05/07/20 13:30 13:30 13:30 WBC 5.5 RBC 3.95 L Hgb 12.5 Hct 36.5 D MCV 92.3 MCH 31.6 MCHC 34.2 RDW 14.1 D Plt Count 249 MPV 7.3 L Sodium 139 Potassium 3.9 Chloride 104 Carbon Dioxide 28 Anion Gap 7 L BUN 18.1 H Creatinine 1.0 Est GFR (CKD-EPI)AfAm 91.78 Est GFR (CKD-EPI)NonAf 79.19 POC Glucometer Random Glucose 169 H Calcium 9.1 Total Bilirubin 0.8 AST 17 ALT 19 Alkaline Phosphatase 114 Total Protein 7.2 Albumin 3.8 Syphilis Serology Non-reactive COVID-19 (SONIA) 05/07/20 05/07/20 05/08/20 14:31 14:40 16:46 WBC RBC Hgb Hct MCV MCH MCHC RDW Plt Count MPV Sodium Potassium Chloride Carbon Dioxide Anion Gap BUN Creatinine Est GFR (CKD-EPI)AfAm Est GFR (CKD-EPI)NonAf POC Glucometer 162 184 Random Glucose Calcium Total Bilirubin AST ALT Alkaline Phosphatase Total Protein Albumin Syphilis Serology COVID-19 (SONIA) Not detected 05/09/20 05/09/20 05/09/20 06:07 17:03 21:28 WBC RBC Hgb Hct MCV MCH MCHC RDW Plt Count MPV Sodium Potassium Chloride Carbon Dioxide Anion Gap BUN Creatinine Est GFR (CKD-EPI)AfAm Est GFR (CKD-EPI)NonAf POC Glucometer 147 145 154 Random Glucose Calcium Total Bilirubin AST ALT Alkaline Phosphatase Total Protein Albumin Syphilis Serology COVID-19 (SONIA) 05/10/20 07:01 WBC RBC Hgb Hct MCV MCH MCHC RDW Plt Count MPV Sodium Potassium Chloride Carbon Dioxide Anion Gap BUN Creatinine Est GFR (CKD-EPI)AfAm Est GFR (CKD-EPI)NonAf POC Glucometer 159 Random Glucose Calcium Total Bilirubin AST ALT Alkaline Phosphatase Total Protein Albumin Syphilis Serology COVID-19 (SONIA) long history of diabetes treated with metformin 500mg po bid bgm within acceptable range 05/10/20 14:08 encourage weight loss Assessment: 05/10/20 14:09 alcohol withdrawal diabetes Plan: librium regiment metformin
[2020-05-10] MEDS ORDERED: hydrOXYzine PAMOATE 25 MG CAPSULE (FP) PO PRN (21:47)
[2020-05-10] MEDS ORDERED: cloNIDine HCL 0.1 MG TABLET PO ONE (21:48)
[2020-05-10] MEDS: THIAMINE HCL 100 MG TABLET (FP) PO SCH (22:11)
[2020-05-10] MEDS: MELATONIN 5 MG TABLETS PO SCH (22:11)
[2020-05-11] MEDS: chlordiazePOXIDE HCL 10 MG CAPSULE PO SCH ×2 (06:16→17:03)
[2020-05-11] MEDS: ALBUTEROL SO4 HFA INHALER IH PRN ×2 (06:17→21:54)
[2020-05-11] MEDS: ASPIRIN 81 MG CHEWABLE TABLETS PO SCH (10:18)
[2020-05-11] MEDS: PRENATAL VITAMINS W/ FOLIC ACID TABLET (FP) PO SCH (10:18)
[2020-05-11] MEDS: amLODIPine BESYLATE 10 MG TABLET (FP) PO SCH (10:18)
--- NOTE | 2020-05-11 11:26 | PN ---
S CIWA - CIWA Score Nausea/Vomitin-Mild Nausea/No Vomiting Muscle Tremors: 2 Anxiety: 2 Agitation: 2 Paroxysmal Sweats: No Perspiration Orientation: 0-Oriented Tacttile Disturbances: 0-None Auditory Disturbances: 0-None Visual Disturbances: 0-None Headache: 1-Very Mild CIWA-Ar Total Score: 8 BHS Progress Note (SOAP) Subjective: alert,irritable,anxious,interrupted sleep,pain in the body Objective: 05/11/20 11:24 Vital Signs Temperature 97.7 F 05/11/20 09:21 Pulse Rate 83 05/11/20 09:21 Respiratory Rate 18 05/11/20 09:21 Blood Pressure 116/63 05/11/20 09:21 O2 Sat by Pulse Oximetry (%) 95 05/11/20 09:21 Assessment: 05/11/20 11:25 withdrawal symptom Plan: continue detox librium regimen,discharge in am
[2020-05-11] MEDS: THIAMINE HCL 100 MG TABLET (FP) PO SCH (21:55)
[2020-05-11] MEDS: MELATONIN 5 MG TABLETS PO SCH (21:55)
[2020-05-12] MEDS ORDERED: chlordiazePOXIDE HCL 10 MG CAPSULE PO ONE (05:00)
--- NOTE | 2020-05-12 09:28 | DS ---
[facility] Detox Discharge Summary Admission Date: 05/07/20 Discharge Date: 05/12/20 - History Present History: Alcohol Dependence Additional Comments: Pt reports he has PCP at [facility] and has all his meds at home. Pertinent Past History: Asth/ma type 2 DM Bipolar Disorder - Physical Exam Results Vital Signs: Vital Signs Temperature 98.0 F 05/12/20 06:09 Pulse Rate 94 H 05/12/20 06:09 Respiratory Rate 20 05/12/20 06:09 Blood Pressure 133/85 05/12/20 06:09 O2 Sat by Pulse Oximetry (%) 95 05/12/20 06:09 Alert o x3 nad oob Pertinent Admission Physical Exam Findings: Laboratory Tests 05/07/20 05/07/20 05/07/20 13:30 13:30 13:30 WBC 5.5 RBC 3.95 L Hgb 12.5 Hct 36.5 D MCV 92.3 MCH 31.6 MCHC 34.2 RDW 14.1 D Plt Count 249 MPV 7.3 L Sodium 139 Potassium 3.9 Chloride 104 Carbon Dioxide 28 Anion Gap 7 L BUN 18.1 H Creatinine 1.0 Est GFR (CKD-EPI)AfAm 91.78 Est GFR (CKD-EPI)NonAf 79.19 POC Glucometer Random Glucose 169 H Calcium 9.1 Total Bilirubin 0.8 AST 17 ALT 19 Alkaline Phosphatase 114 Total Protein 7.2 Albumin 3.8 Syphilis Serology Non-reactive COVID-19 (SONIA) 05/07/20 05/07/20 05/08/20 14:31 14:40 16:46 WBC RBC Hgb Hct MCV MCH MCHC RDW Plt Count MPV Sodium Potassium Chloride Carbon Dioxide Anion Gap BUN Creatinine Est GFR (CKD-EPI)AfAm Est GFR (CKD-EPI)NonAf POC Glucometer 162 184 Random Glucose Calcium Total Bilirubin AST ALT Alkaline Phosphatase Total Protein Albumin Syphilis Serology COVID-19 (SONIA) Not detected 05/09/20 05/09/20 05/09/20 06:07 17:03 21:28 WBC RBC Hgb Hct MCV MCH MCHC RDW Plt Count MPV Sodium Potassium Chloride Carbon Dioxide Anion Gap BUN Creatinine Est GFR (CKD-EPI)AfAm Est GFR (CKD-EPI)NonAf POC Glucometer 147 145 154 Random Glucose Calcium Total Bilirubin AST ALT Alkaline Phosphatase Total Protein Albumin Syphilis Serology COVID-19 (SONIA) 05/10/20 05/10/20 05/11/20 07:01 16:45 06:15 WBC RBC Hgb Hct MCV MCH MCHC RDW Plt Count MPV Sodium Potassium Chloride Carbon Dioxide Anion Gap BUN Creatinine Est GFR (CKD-EPI)AfAm Est GFR (CKD-EPI)NonAf POC Glucometer 159 189 155 Random Glucose Calcium Total Bilirubin AST ALT Alkaline Phosphatase Total Protein Albumin Syphilis Serology COVID-19 (SONIA) 05/11/20 05/12/20 16:35 06:14 WBC RBC Hgb Hct MCV MCH MCHC RDW Plt Count MPV Sodium Potassium Chloride Carbon Dioxide Anion Gap BUN Creatinine Est GFR (CKD-EPI)AfAm Est GFR (CKD-EPI)NonAf POC Glucometer 196 156 Random Glucose Calcium Total Bilirubin AST ALT Alkaline Phosphatase Total Protein Albumin Syphilis Serology COVID-19 (SONIA) Covid-19 not detected - Treatment Hospital Course: Detox Protocol Followed, Detoxed Safely, Responded well, Discharged Condition Good, Rehab Referral Accepted Patient has Accepted a Rehab Referral to: [facility] OPT - Medication Discharge Medications: Ambulatory Orders Quetiapine Fumarate [Seroquel -] 50 mg PO HS #30 tablet 03/02/15 Aspirin [ASA -] 81 mg PO DAILY 06/08/15 Amlodipine Besylate [Norvasc -] 10 mg PO DAILY 11/01/17 Albuterol Sulfate Inhaler - [Ventolin HFA Inhaler -] 2 inh PO Q4H PRN #1 inhaler 10/04/18 Metoprolol Succinate [Toprol XL -] 50 mg PO DAILY #14 tab.sr.24h 10/04/18 metFORMIN HCL [Metformin HCl] 850 mg PO BID 05/07/20 - Diagnosis (1) Alcohol dependence with withdrawal, uncomplicated Status: Acute (2) Asthma Status: Chronic Qualifiers: Asthma severity: unspecified severity Asthma persistence: unspecified Asthma complication type: uncomplicated Qualified Code(s): J45.909 - Unspecified asthma, uncomplicated (3) Type 2 diabetes mellitus Status: Chronic Qualifiers: Diabetes mellitus group home insulin use: 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 Diabetes mellitus complication status: with unspecified complications (4) COPD (chronic obstructive pulmonary disease) Status: Chronic Qualifiers: COPD type: unspecified COPD Qualified Code(s): J44.9 - Chronic obstructive pulmonary disease, unspecified (5) HTN (hypertension) Status: Chronic Qualifiers: Hypertension type: essential hypertension Qualified Code(s): I10 - Essen tial (primary) hypertension (6) Hyperlipidemia Status: Chronic Qualifiers: Hyperlipidemia type: unspecified Qualified Code(s): E78.5 - Hyperlipidemia, unspecified (7) Obesity Status: Chronic Qualifiers: Obesity type: due to excess calories Obesity classification: adult class 2 (BMI 35 - 39.9) Body mass index: BMI 35.0-35.9 - AMA Did Patient Leave Against Medical Advice: No
[2020-05-12] MEDS: ASPIRIN 81 MG CHEWABLE TABLETS PO SCH (10:45)
[2020-05-12] MEDS: amLODIPine BESYLATE 10 MG TABLET (FP) PO SCH (10:45)
[2020-05-12] MEDS: PRENATAL VITAMINS W/ FOLIC ACID TABLET (FP) PO SCH (10:46)
[2020-05-12 11:30] VITALS: BP 133/68; PULSE 90; TEMP 97.3
== END 2020-05-12 10:55 | disposition home or self-care (01) | DRG 775 ==
LOC: YASAS 12:31 → Y5N DETOX 14:15
PROVIDERS: ADMIT Allergy & Immunology; ATTEND Allergy & Immunology
PROC: HZ2ZZZZ Detoxification Services for Substance Abuse Treatment (ICD-10-PCS; principal; 2020-05-07)
DX: F10.230 Alcohol dependence with withdrawal, uncomplicated (principal); F10.282 Alcohol dependence with alcohol-induced sleep disorder; F31.9 Bipolar disorder, unspecified; G47.00 Insomnia, unspecified; I10 Essential (primary) hypertension; J44.9 Chronic obstructive pulmonary disease, unspecified; J45.40 Moderate persistent asthma, uncomplicated; E78.5 Hyperlipidemia, unspecified; E11.9 Type 2 diabetes mellitus without complications; Z96.0 Presence of urogenital implants; Z79.84 Long term (current) use of oral hypoglycemic drugs; Z85.46 Personal history of malignant neoplasm of prostate; Z90.79 Acquired absence of other genital organ(s); Z90.49 Acquired absence of other specified parts of digestive tract; Z98.890 Other specified postprocedural states; Z91.5 Personal history of self-harm; Z68.36 Body mass index [BMI] 36.0-36.9, adult; E66.9 Obesity, unspecified; Z88.8 Allergy status to other drugs, medicaments and biological substances; Z91.041 Radiographic dye allergy status; Z56.0 Unemployment, unspecified
CPT/HCPCS: 36415; 80053; 82962; 85027; 86780; 93005; 93010; J0735; U0003

== ENCOUNTER 2020-09-16 20:31 | Inpatient (IN) | payer OTHER ==
[2020-09-16 21:41] VITALS: BMI 35.4
[2020-09-16] MEDS ORDERED: ALBUTEROL SO4 HFA INHALER IH PRN (21:56)
[2020-09-16] MEDS ORDERED: MAG HYDROX/AL HYDROX/SIMETH 30 ML UNIT-DOSE CUP PO PRN (21:57)
[2020-09-16] MEDS ORDERED: hydrOXYzine PAMOATE 25 MG CAPSULE (FP) PO PRN (21:57)
[2020-09-16] MEDS ORDERED: MAGNESIUM CITRATE 300 ML BOTTLE PO PRN (21:57)
[2020-09-16] MEDS ORDERED: MAGNESIUM HYDROX 2400MG/30ML ORAL SUSPENSION 30 ML CUP PO PRN (21:57)
[2020-09-16] MEDS ORDERED: guaiFENesin 200 MG/10 ML 10 ML UNIT-DOSE CUPS PO PRN (21:57)
[2020-09-16] MEDS ORDERED: ONDANSETRON *ODT* 4 MG TABLET SL PRN (21:57)
[2020-09-16] MEDS ORDERED: IBUPROFEN 400 MG TABLET (FP) PO PRN (21:57)
[2020-09-16] MEDS ORDERED: P-EPHED 60MG/TRIPROLIDI 2.5MG TABLET PO PRN (21:57)
[2020-09-16] MEDS ORDERED: DICYCLOMINE HCL 10 MG CAPSULE PO PRN (21:57)
[2020-09-16] MEDS ORDERED: MENTHOL/PHENOL 1 EACH UD MM PRN (21:57)
[2020-09-16] MEDS ORDERED: LORazepam 1 MG TABLET PO PRN (21:57)
[2020-09-16] MEDS ORDERED: METHOCARBAMOL 500 MG TABLET PO PRN (21:57)
[2020-09-16] MEDS ORDERED: BISMUTH SUBSALICYLATE 524 MG/30 ML UD PO PRN (21:57)
[2020-09-16] MEDS ORDERED: ACETAMINOPHEN 325 MG TABLET (FP) PO PRN ×2 (21:57)
[2020-09-16] MEDS: THIAMINE HCL 100 MG TABLET (FP) PO SCH (23:03)
[2020-09-16] MEDS: LORazepam 2 MG TABLET PO SCH (23:04)
[2020-09-16] MEDS: MELATONIN 5 MG TABLETS PO SCH (23:04)
[2020-09-17] MEDS: LORazepam 2 MG TABLET PO SCH ×4 (06:34→22:15)
[2020-09-17 10:10] LABS: POTASSIUM 4.3 mmol/L (3.5-5.1)
[2020-09-17 10:12] LABS: BASO % 0.4 % (0-2.0); EOS % 3.8 % (0-4.5); HEMATOCRIT 33.7 % (35.4-49); LYMPH % 11.7 % (8-40); MCH 31.6 pg (25.7-33.7); MCHC 35.4 g/dl (32.0-35.9); MEAN CELL VOLUME 89.2 fl (80-96); MEAN PLT VOLUME 7.5 fl (7.5-11.1); MONO % 11.2 % (3.8-10.2); NEUT % 72.9 % (42.8-82.8); PLATELET COUNT 249 K/MM3 (134-434); RBC 3.78 M/mm3 (4.00-5.60); WHITE BLOOD COUNT 4.8 K/mm3 (4.0-10.0)
[2020-09-17 10:16] LABS: ALBUMIN 3.3 g/dl (3.4-5.0); BLOOD UREA NITROGEN 7.6 mg/dL (7-18); CALCIUM 7.9 mg/dL (8.5-10.1)
[2020-09-17 10:19] LABS: BILIRUBIN,TOTAL 0.8 mg/dL (0.2-1); TOT PROT 6.2 g/dl (6.4-8.2)
[2020-09-17 10:20] LABS: CREATININE 0.8 mg/dL (0.55-1.3)
[2020-09-17] MEDS: ASPIRIN 81 MG CHEWABLE TABLETS PO SCH (10:52)
[2020-09-17] MEDS: amLODIPine BESYLATE 10 MG TABLET (FP) PO SCH (10:53)
[2020-09-17] MEDS: PRENATAL VITAMINS W/ FOLIC ACID TABLET (FP) PO SCH (10:53)
[2020-09-17] MEDS: THIAMINE HCL 100 MG TABLET (FP) PO SCH (22:15)
[2020-09-17] MEDS: MELATONIN 5 MG TABLETS PO SCH (22:15)
[2020-09-18] MEDS: LORazepam 1 MG TABLET PO SCH ×4 (05:51→22:08)
[2020-09-18] MEDS: ASPIRIN 81 MG CHEWABLE TABLETS PO SCH (10:25)
[2020-09-18] MEDS: amLODIPine BESYLATE 10 MG TABLET (FP) PO SCH (10:25)
[2020-09-18] MEDS: PRENATAL VITAMINS W/ FOLIC ACID TABLET (FP) PO SCH (10:29)
[2020-09-18] MEDS: MELATONIN 5 MG TABLETS PO SCH (22:08)
[2020-09-18] MEDS: THIAMINE HCL 100 MG TABLET (FP) PO SCH (22:08)
[2020-09-19] MEDS ORDERED: LORazepam 0.5 MG TABLET PO PRN
[2020-09-19] MEDS: LORazepam 0.5 MG TABLET PO SCH ×4 (05:50→22:27)
[2020-09-19] MEDS: amLODIPine BESYLATE 10 MG TABLET (FP) PO SCH (10:07)
[2020-09-19] MEDS: ASPIRIN 81 MG CHEWABLE TABLETS PO SCH (10:07)
[2020-09-19] MEDS: PRENATAL VITAMINS W/ FOLIC ACID TABLET (FP) PO SCH (10:07)
[2020-09-19] MEDS: THIAMINE HCL 100 MG TABLET (FP) PO SCH (22:27)
[2020-09-19] MEDS: MELATONIN 5 MG TABLETS PO SCH (22:27)
[2020-09-20] MEDS ORDERED: LORazepam 0.5 MG TABLET PO ONE (05:00)
[2020-09-20 09:21] VITALS: BP 110/63; PULSE 92; TEMP 98
== END 2020-09-20 09:21 | disposition home or self-care (01) | DRG 897 ==
LOC: YASAS 20:31 → Y6N 21:53
PROVIDERS: ADMIT Allergy & Immunology; ATTEND Allergy & Immunology
PROC: HZ2ZZZZ Detoxification Services for Substance Abuse Treatment (ICD-10-PCS; principal; 2020-09-16)
DX: F10.230 Alcohol dependence with withdrawal, uncomplicated (principal); F10.282 Alcohol dependence with alcohol-induced sleep disorder; F31.9 Bipolar disorder, unspecified; F20.9 Schizophrenia, unspecified; I25.10 Atherosclerotic heart disease of native coronary artery without angina pectoris; I10 Essential (primary) hypertension; E78.5 Hyperlipidemia, unspecified; E11.65 Type 2 diabetes mellitus with hyperglycemia; Z79.84 Long term (current) use of oral hypoglycemic drugs; J45.20 Mild intermittent asthma, uncomplicated; J42 Unspecified chronic bronchitis; E66.9 Obesity, unspecified; Z68.35 Body mass index [BMI] 35.0-35.9, adult; R25.3 Fasciculation; R33.8 Other retention of urine; R26.89 Other abnormalities of gait and mobility; Z96.0 Presence of urogenital implants; Z99.89 Dependence on other enabling machines and devices; Z91.041 Radiographic dye allergy status; Z88.8 Allergy status to other drugs, medicaments and biological substances; Z85.46 Personal history of malignant neoplasm of prostate; Z90.79 Acquired absence of other genital organ(s); Z98.890 Other specified postprocedural states; Z86.79 Personal history of other diseases of the circulatory system; Z91.5 Personal history of self-harm
CPT/HCPCS: 36415; 80053; 82962; 85025; 86780; C9803; U0003

== ENCOUNTER 2021-04-04 09:02 | Inpatient (IN) | payer OTHER ==
[2021-04-04 09:37] VITALS: BMI 37.3
[2021-04-04] MEDS ORDERED: LORazepam 1 MG TABLET PO PRN (11:05)
[2021-04-04] MEDS ORDERED: MAGNESIUM HYDROX 2400MG/30ML ORAL SUSPENSION 30 ML CUP PO PRN (11:06)
[2021-04-04] MEDS ORDERED: METHOCARBAMOL 500 MG TABLET PO PRN (11:06)
[2021-04-04] MEDS ORDERED: ONDANSETRON *ODT* 4 MG TABLET SL PRN (11:06)
[2021-04-04] MEDS ORDERED: ACETAMINOPHEN 325 MG TABLET (FP) PO PRN ×2 (11:06)
[2021-04-04] MEDS ORDERED: MAG HYDROX/AL HYDROX/SIMETH 30 ML UNIT-DOSE CUP PO PRN (11:06)
[2021-04-04] MEDS ORDERED: NICOTINE POLACRILEX 2 MG GUM BUC PRN (11:06)
[2021-04-04] MEDS ORDERED: MAGNESIUM CITRATE 300 ML BOTTLE PO PRN (11:06)
[2021-04-04] MEDS ORDERED: IBUPROFEN 400 MG TABLET (FP) PO PRN (11:06)
[2021-04-04] MEDS ORDERED: BISMUTH SUBSALICYLATE 524 MG/30 ML PO PRN (11:06)
[2021-04-04] MEDS ORDERED: MENTHOL/PHENOL 1 EACH UD MM PRN (11:06)
[2021-04-04] MEDS: LORazepam 2 MG TABLET PO SCH ×3 (13:06→22:31)
[2021-04-04] MEDS: hydrOXYzine PAMOATE 25 MG CAPSULE (FP) PO SCH ×3 (13:06→22:31)
[2021-04-04] MEDS: THIAMINE HCL 100 MG TABLET (FP) PO SCH (22:31)
[2021-04-04] MEDS: MELATONIN 5 MG TABLETS PO SCH (22:31)
[2021-04-05] MEDS: hydrOXYzine PAMOATE 25 MG CAPSULE (FP) PO SCH ×3 (06:24→13:11)
[2021-04-05] MEDS: LORazepam 2 MG TABLET PO SCH ×4 (06:25→22:20)
[2021-04-05 10:25] LABS: HEMOGLOBIN 13.7 GM/dL (11.7-16.9); MCH 31.6 pg (25.7-33.7); MCHC 35.2 g/dl (32.0-35.9); MEAN CELL VOLUME 89.7 fl (80-96); MEAN PLT VOLUME 6.9 fl (7.5-11.1); PLATELET COUNT 295 K/MM3 (134-434); RBC 4.34 M/mm3 (4.00-5.60); RDW 14.8 % (11.9-15.9); WHITE BLOOD COUNT 5.6 K/mm3 (4.0-10.0)
[2021-04-05 10:42] LABS: ALBUMIN 3.8 g/dl (3.4-5.0); BLOOD UREA NITROGEN 17.1 mg/dL (7-18); CALCIUM 8.9 mg/dL (8.5-10.1)
[2021-04-05 10:45] LABS: CREATININE 0.9 mg/dL (0.55-1.3)
[2021-04-05 10:47] LABS: TOT PROT 7.4 g/dl (6.4-8.2)
[2021-04-05] MEDS: ASPIRIN 81 MG CHEWABLE TABLETS PO SCH (10:58)
[2021-04-05] MEDS: amLODIPine BESYLATE 10 MG TABLET (FP) PO SCH (10:59)
[2021-04-05] MEDS: PRENATAL VITAMINS W/ FOLIC ACID TABLET (FP) PO SCH (10:59)
[2021-04-05] MEDS: THIAMINE HCL 100 MG TABLET (FP) PO SCH (22:20)
[2021-04-05] MEDS: MELATONIN 5 MG TABLETS PO SCH (22:20)
[2021-04-06] MEDS: LORazepam 1 MG TABLET PO SCH ×4 (05:35→22:29)
[2021-04-06] MEDS: PRENATAL VITAMINS W/ FOLIC ACID TABLET (FP) PO SCH (10:51)
[2021-04-06] MEDS: ASPIRIN 81 MG CHEWABLE TABLETS PO SCH (10:51)
[2021-04-06] MEDS: amLODIPine BESYLATE 10 MG TABLET (FP) PO SCH (10:51)
[2021-04-06] MEDS: ALBUTEROL SO4 HFA INHALER IH PRN (12:20)
[2021-04-06] MEDS: THIAMINE HCL 100 MG TABLET (FP) PO SCH (22:29)
[2021-04-06] MEDS: MELATONIN 5 MG TABLETS PO SCH (22:30)
[2021-04-07] MEDS ORDERED: LORazepam 0.5 MG TABLET PO PRN
[2021-04-07] MEDS: LORazepam 0.5 MG TABLET PO SCH ×4 (05:27→22:22)
[2021-04-07] MEDS: PRENATAL VITAMINS W/ FOLIC ACID TABLET (FP) PO SCH (10:16)
[2021-04-07] MEDS: amLODIPine BESYLATE 10 MG TABLET (FP) PO SCH (10:16)
[2021-04-07] MEDS: ASPIRIN 81 MG CHEWABLE TABLETS PO SCH (10:16)
[2021-04-07] MEDS: ALBUTEROL SO4 HFA INHALER IH PRN ×2 (17:18→22:25)
[2021-04-07] MEDS: THIAMINE HCL 100 MG TABLET (FP) PO SCH (22:21)
[2021-04-07] MEDS: MELATONIN 5 MG TABLETS PO SCH (22:23)
[2021-04-08] MEDS ORDERED: LORazepam 0.5 MG TABLET PO ONE (05:00)
[2021-04-08 09:22] VITALS: BP 156/85; PULSE 105; TEMP 98.2
[2021-04-08] MEDS: amLODIPine BESYLATE 10 MG TABLET (FP) PO SCH (10:28)
[2021-04-08] MEDS: ASPIRIN 81 MG CHEWABLE TABLETS PO SCH (10:28)
[2021-04-08] MEDS: PRENATAL VITAMINS W/ FOLIC ACID TABLET (FP) PO SCH (10:28)
[2021-04-08] MEDS: ALBUTEROL SO4 HFA INHALER IH PRN (10:30)
== END 2021-04-08 12:25 | disposition other institution (70) | DRG 897 ==
LOC: YASAS 09:02 → Y6N 11:49
PROVIDERS: ADMIT Allergy & Immunology; ATTEND Allergy & Immunology
PROC: HZ2ZZZZ Detoxification Services for Substance Abuse Treatment (ICD-10-PCS; principal; 2021-04-04)
DX: F10.230 Alcohol dependence with withdrawal, uncomplicated (principal); F31.81 Bipolar II disorder; F10.282 Alcohol dependence with alcohol-induced sleep disorder; I25.10 Atherosclerotic heart disease of native coronary artery without angina pectoris; I10 Essential (primary) hypertension; E78.5 Hyperlipidemia, unspecified; J45.20 Mild intermittent asthma, uncomplicated; E11.9 Type 2 diabetes mellitus without complications; Z79.84 Long term (current) use of oral hypoglycemic drugs; E66.9 Obesity, unspecified; Z68.37 Body mass index [BMI] 37.0-37.9, adult; Z99.89 Dependence on other enabling machines and devices; Z91.5 Personal history of self-harm; Z88.0 Allergy status to penicillin; Z91.041 Radiographic dye allergy status; Z88.5 Allergy status to narcotic agent; Z86.79 Personal history of other diseases of the circulatory system
CPT/HCPCS: 36415; 80053; 82962; 85027; 86780; C9803; U0003; U0005

== ENCOUNTER 2021-04-08 12:43 | Inpatient (IN) | payer OTHER ==
[2021-04-08] MEDS ORDERED: MAGNESIUM HYDROX 2400MG/30ML ORAL SUSPENSION 30 ML CUP PO PRN (15:38)
[2021-04-08] MEDS ORDERED: NICOTINE POLACRILEX 2 MG GUM BUC PRN (15:38)
[2021-04-08] MEDS ORDERED: P-EPHED 60MG/TRIPROLIDI 2.5MG TABLET PO PRN (15:38)
[2021-04-08] MEDS ORDERED: MAG HYDROX/AL HYDROX/SIMETH 30 ML UNIT-DOSE CUP PO PRN (15:38)
[2021-04-08] MEDS ORDERED: guaiFENesin 200 MG/10 ML 10 ML UNIT-DOSE CUPS PO PRN (15:38)
[2021-04-08] MEDS ORDERED: MENTHOL/PHENOL 1 EACH UD MM PRN (15:38)
[2021-04-08] MEDS ORDERED: hydrOXYzine PAMOATE 25 MG CAPSULE (FP) PO PRN (15:38)
[2021-04-08] MEDS ORDERED: IBUPROFEN 400 MG TABLET (FP) PO PRN (15:38)
[2021-04-08] MEDS ORDERED: ACETAMINOPHEN 325 MG TABLET (FP) PO PRN (15:38)
[2021-04-08] MEDS ORDERED: LOPERAMIDE HCL 2 MG CAPSULE PO PRN (15:38)
[2021-04-08] MEDS ORDERED: MAGNESIUM CITRATE 300 ML BOTTLE PO PRN (15:38)
[2021-04-08] MEDS: THIAMINE HCL 100 MG TABLET (FP) PO SCH (21:22)
[2021-04-08] MEDS: MELATONIN 5 MG TABLETS PO SCH (21:22)
[2021-04-09] MEDS: ALBUTEROL SO4 HFA INHALER IH PRN ×2 (06:18→21:20)
[2021-04-09] MEDS: PRENATAL VITAMINS W/ FOLIC ACID TABLET (FP) PO SCH (09:45)
[2021-04-09] MEDS: NICOTINE 7 MG/24 HOURS TOPICAL PATCH TD SCH (09:45)
[2021-04-09] MEDS: ASPIRIN 81 MG CHEWABLE TABLETS PO SCH (09:45)
[2021-04-09] MEDS: amLODIPine BESYLATE 10 MG TABLET (FP) PO SCH (09:45)
[2021-04-09] MEDS: MELATONIN 5 MG TABLETS PO SCH (21:19)
[2021-04-09] MEDS: THIAMINE HCL 100 MG TABLET (FP) PO SCH (21:19)
[2021-04-10] MEDS: ALBUTEROL SO4 HFA INHALER IH PRN ×2 (06:39→22:03)
[2021-04-10] MEDS ORDERED: PT OWN MED DRAWER 7, Y5N ONE (08:46)
[2021-04-10] MEDS: amLODIPine BESYLATE 10 MG TABLET (FP) PO SCH (09:39)
[2021-04-10] MEDS: PRENATAL VITAMINS W/ FOLIC ACID TABLET (FP) PO SCH (09:39)
[2021-04-10] MEDS: ASPIRIN 81 MG CHEWABLE TABLETS PO SCH (09:39)
[2021-04-10] MEDS: NICOTINE 7 MG/24 HOURS TOPICAL PATCH TD SCH (09:39)
[2021-04-10] MEDS: THIAMINE HCL 100 MG TABLET (FP) PO SCH (22:03)
[2021-04-10] MEDS: MELATONIN 5 MG TABLETS PO SCH (22:03)
[2021-04-11 06:48] VITALS: TEMP 97.2
[2021-04-11 09:34] VITALS: BP 141/66; PULSE 88
[2021-04-11] MEDS: ASPIRIN 81 MG CHEWABLE TABLETS PO SCH (09:44)
[2021-04-11] MEDS: amLODIPine BESYLATE 10 MG TABLET (FP) PO SCH (09:44)
[2021-04-11] MEDS: NICOTINE 7 MG/24 HOURS TOPICAL PATCH TD SCH (09:44)
[2021-04-11] MEDS: PRENATAL VITAMINS W/ FOLIC ACID TABLET (FP) PO SCH (09:44)
[2021-04-11] MEDS: ALBUTEROL SO4 HFA INHALER IH PRN (09:46)
== END 2021-04-11 11:15 | disposition home or self-care (01) | DRG 895 ==
LOC: YASAS 12:43 → Y5N 12:44
PROVIDERS: ADMIT Allergy & Immunology; ATTEND Allergy & Immunology
PROC: HZ42ZZZ Group Counseling for Substance Abuse Treatment, Cognitive-Behavioral (ICD-10-PCS; principal; 2021-04-08)
DX: F10.20 Alcohol dependence, uncomplicated (principal); F31.75 Bipolar disorder, in partial remission, most recent episode depressed; I10 Essential (primary) hypertension; E11.9 Type 2 diabetes mellitus without complications; Z79.4 Long term (current) use of insulin; E78.5 Hyperlipidemia, unspecified; J45.20 Mild intermittent asthma, uncomplicated; J42 Unspecified chronic bronchitis; R33.8 Other retention of urine; Z96.0 Presence of urogenital implants; Z85.46 Personal history of malignant neoplasm of prostate; Z90.79 Acquired absence of other genital organ(s); Z88.0 Allergy status to penicillin; Z91.041 Radiographic dye allergy status; Z88.8 Allergy status to other drugs, medicaments and biological substances
CPT/HCPCS: 82962

== ENCOUNTER 2021-06-14 12:37 | Inpatient (IN) | payer OTHER ==
[2021-06-14 14:17] VITALS: BMI 36.8
[2021-06-14] MEDS ORDERED: ONDANSETRON *ODT* 4 MG TABLET SL PRN (18:04)
[2021-06-14] MEDS ORDERED: ACETAMINOPHEN 325 MG TABLET (FP) PO PRN ×2 (18:04)
[2021-06-14] MEDS ORDERED: MAG HYDROX/AL HYDROX/SIMETH 30 ML UNIT-DOSE CUP PO PRN (18:04)
[2021-06-14] MEDS ORDERED: IBUPROFEN 400 MG TABLET (FP) PO PRN (18:04)
[2021-06-14] MEDS ORDERED: BISMUTH SUBSALICYLATE 524 MG/30 ML PO PRN (18:04)
[2021-06-14] MEDS ORDERED: MAGNESIUM HYDROX 2400MG/30ML ORAL SUSPENSION 30 ML CUP PO PRN (18:04)
[2021-06-14] MEDS ORDERED: MAGNESIUM CITRATE 300 ML BOTTLE PO PRN (18:04)
[2021-06-14] MEDS ORDERED: MENTHOL/PHENOL 1 EACH UD MM PRN (18:04)
[2021-06-14] MEDS ORDERED: LORazepam 1 MG TABLET PO PRN (18:05)
[2021-06-14] MEDS: ALBUTEROL SO4 HFA INHALER IH PRN (19:51)
[2021-06-14] MEDS: METHOCARBAMOL 500 MG TABLET PO PRN (19:51)
[2021-06-14] MEDS: PRENATAL VITAMINS W/ FOLIC ACID TABLET (FP) PO SCH (19:51)
[2021-06-14] MEDS: hydrOXYzine PAMOATE 25 MG CAPSULE (FP) PO SCH (22:07)
[2021-06-14] MEDS: THIAMINE HCL 100 MG TABLET (FP) PO SCH (22:07)
[2021-06-14] MEDS: LORazepam 2 MG TABLET PO SCH (22:08)
[2021-06-14] MEDS: MELATONIN 5 MG TABLETS PO SCH (22:09)
[2021-06-15] MEDS: LORazepam 2 MG TABLET PO SCH ×4 (06:54→23:41)
[2021-06-15] MEDS: hydrOXYzine PAMOATE 25 MG CAPSULE (FP) PO SCH (06:54)
[2021-06-15] MEDS ORDERED: hydrOXYzine PAMOATE 25 MG CAPSULE (FP) PO PRN (08:35)
[2021-06-15] MEDS: amLODIPine BESYLATE 10 MG TABLET (FP) PO SCH (10:30)
[2021-06-15] MEDS: ASPIRIN 81 MG CHEWABLE TABLETS PO SCH (10:30)
[2021-06-15] MEDS: PRENATAL VITAMINS W/ FOLIC ACID TABLET (FP) PO SCH (10:30)
[2021-06-15 11:22] LABS: HEMATOCRIT 34.2 % (35.4-49); HEMOGLOBIN 12.4 GM/dL (11.7-16.9); MCH 32.4 pg (25.7-33.7); MCHC 36.1 g/dl (32.0-35.9); MEAN CELL VOLUME 89.6 fl (80-96); MEAN PLT VOLUME 7.2 fl (7.5-11.1); PLATELET COUNT 294 10^3/uL (134-434); RBC 3.82 M/mm3 (4.00-5.60); RDW 14.4 % (11.9-15.9); WHITE BLOOD COUNT 4.5 K/mm3 (4.0-10.0)
[2021-06-15 11:27] LABS: ALBUMIN 3.2 g/dl (3.4-5.0)
[2021-06-15 11:28] LABS: BILIRUBIN,TOTAL 0.5 mg/dL (0.2-1); TOT PROT 6.2 g/dl (6.4-8.2)
[2021-06-15 11:29] LABS: CALCIUM 8.7 mg/dL (8.5-10.1)
[2021-06-15 11:30] LABS: CREATININE 0.8 mg/dL (0.55-1.3)
[2021-06-15] MEDS: MELATONIN 5 MG TABLETS PO SCH (22:44)
[2021-06-15] MEDS: THIAMINE HCL 100 MG TABLET (FP) PO SCH (22:44)
[2021-06-16] MEDS: LORazepam 1 MG TABLET PO SCH ×4 (06:01→22:18)
[2021-06-16] MEDS: PRENATAL VITAMINS W/ FOLIC ACID TABLET (FP) PO SCH (10:41)
[2021-06-16] MEDS: ASPIRIN 81 MG CHEWABLE TABLETS PO SCH (10:41)
[2021-06-16] MEDS: amLODIPine BESYLATE 10 MG TABLET (FP) PO SCH (10:41)
[2021-06-16] MEDS: ALBUTEROL SO4 HFA INHALER IH PRN (20:42)
[2021-06-16] MEDS: THIAMINE HCL 100 MG TABLET (FP) PO SCH (22:18)
[2021-06-16] MEDS: MELATONIN 5 MG TABLETS PO SCH (22:19)
[2021-06-17] MEDS ORDERED: LORazepam 0.5 MG TABLET PO PRN
[2021-06-17] MEDS: LORazepam 0.5 MG TABLET PO SCH ×4 (06:20→22:18)
[2021-06-17] MEDS: amLODIPine BESYLATE 10 MG TABLET (FP) PO SCH (11:00)
[2021-06-17] MEDS: PRENATAL VITAMINS W/ FOLIC ACID TABLET (FP) PO SCH (11:00)
[2021-06-17] MEDS: ASPIRIN 81 MG CHEWABLE TABLETS PO SCH (11:00)
[2021-06-17] MEDS: THIAMINE HCL 100 MG TABLET (FP) PO SCH (22:18)
[2021-06-17] MEDS: MELATONIN 5 MG TABLETS PO SCH (22:18)
[2021-06-17] MEDS: ALBUTEROL SO4 HFA INHALER IH PRN (22:19)
[2021-06-17] MEDS: METHOCARBAMOL 500 MG TABLET PO PRN (22:19)
[2021-06-18] MEDS ORDERED: LORazepam 0.5 MG TABLET PO ONE (05:00)
[2021-06-18] MEDS: amLODIPine BESYLATE 10 MG TABLET (FP) PO SCH (09:36)
[2021-06-18] MEDS: ASPIRIN 81 MG CHEWABLE TABLETS PO SCH (09:36)
[2021-06-18] MEDS: PRENATAL VITAMINS W/ FOLIC ACID TABLET (FP) PO SCH (09:36)
[2021-06-18 13:01] VITALS: BP 127/60; PULSE 88; TEMP 96.1
== END 2021-06-18 13:02 | disposition other institution (70) | DRG 897 ==
LOC: YASAS 12:37 → Y3N 18:12
PROVIDERS: ADMIT Allergy & Immunology; ATTEND Allergy & Immunology
PROC: HZ2ZZZZ Detoxification Services for Substance Abuse Treatment (ICD-10-PCS; principal; 2021-06-14)
DX: F10.230 Alcohol dependence with withdrawal, uncomplicated (principal); F10.282 Alcohol dependence with alcohol-induced sleep disorder; F10.280 Alcohol dependence with alcohol-induced anxiety disorder; F31.9 Bipolar disorder, unspecified; C61 Malignant neoplasm of prostate; J42 Unspecified chronic bronchitis; J45.909 Unspecified asthma, uncomplicated; E11.65 Type 2 diabetes mellitus with hyperglycemia; Z79.84 Long term (current) use of oral hypoglycemic drugs; I10 Essential (primary) hypertension; E66.9 Obesity, unspecified; Z68.36 Body mass index [BMI] 36.0-36.9, adult; Z88.0 Allergy status to penicillin; Z88.8 Allergy status to other drugs, medicaments and biological substances; Z91.041 Radiographic dye allergy status
CPT/HCPCS: 36415; 80053; 82962; 85027; 86780; C9803; U0003; U0005

== ENCOUNTER 2021-06-18 13:08 | Inpatient (IN) | payer OTHER ==
[2021-06-18] MEDS ORDERED: MENTHOL/PHENOL 1 EACH UD MM PRN (14:38)
[2021-06-18] MEDS ORDERED: MAGNESIUM HYDROX 2400MG/30ML ORAL SUSPENSION 30 ML CUP PO PRN (14:38)
[2021-06-18] MEDS ORDERED: MAG HYDROX/AL HYDROX/SIMETH 30 ML UNIT-DOSE CUP PO PRN (14:38)
[2021-06-18] MEDS ORDERED: P-EPHED 60MG/TRIPROLIDI 2.5MG TABLET PO PRN (14:38)
[2021-06-18] MEDS ORDERED: guaiFENesin 200 MG/10 ML 10 ML UNIT-DOSE CUPS PO PRN (14:38)
[2021-06-18] MEDS ORDERED: LOPERAMIDE HCL 2 MG CAPSULE PO PRN (14:38)
[2021-06-18] MEDS ORDERED: MAGNESIUM CITRATE 300 ML BOTTLE PO PRN (14:38)
[2021-06-18] MEDS ORDERED: hydrOXYzine PAMOATE 25 MG CAPSULE (FP) PO PRN (14:38)
[2021-06-18] MEDS ORDERED: IBUPROFEN 400 MG TABLET (FP) PO PRN (14:38)
[2021-06-18] MEDS ORDERED: ACETAMINOPHEN 325 MG TABLET (FP) PO PRN (14:38)
[2021-06-18] MEDS ORDERED: ALBUTEROL SO4 HFA INHALER IH PRN (14:39)
[2021-06-18] MEDS: THIAMINE HCL 100 MG TABLET (FP) PO SCH (21:24)
[2021-06-18] MEDS: MELATONIN 5 MG TABLETS PO SCH (21:24)
[2021-06-19] MEDS: ASPIRIN 81 MG CHEWABLE TABLETS PO SCH (09:24)
[2021-06-19] MEDS: PRENATAL VITAMINS W/ FOLIC ACID TABLET (FP) PO SCH (09:24)
[2021-06-19] MEDS: amLODIPine BESYLATE 10 MG TABLET (FP) PO SCH (09:24)
[2021-06-19] MEDS: THIAMINE HCL 100 MG TABLET (FP) PO SCH (21:23)
[2021-06-19] MEDS: MELATONIN 5 MG TABLETS PO SCH (21:23)
[2021-06-20 07:02] VITALS: TEMP 97.3
[2021-06-20] MEDS: PRENATAL VITAMINS W/ FOLIC ACID TABLET (FP) PO SCH (11:42)
[2021-06-20] MEDS: metoPROLOL SUCCINATE 25 MG TAB.SR.24H (FP) PO SCH (11:42)
[2021-06-20] MEDS: amLODIPine BESYLATE 10 MG TABLET (FP) PO SCH (11:42)
[2021-06-20] MEDS: ASPIRIN 81 MG CHEWABLE TABLETS PO SCH (11:42)
[2021-06-20] MEDS: THIAMINE HCL 100 MG TABLET (FP) PO SCH (21:16)
[2021-06-20] MEDS: MELATONIN 5 MG TABLETS PO SCH (21:16)
[2021-06-21] MEDS: amLODIPine BESYLATE 10 MG TABLET (FP) PO SCH (10:28)
[2021-06-21] MEDS: PRENATAL VITAMINS W/ FOLIC ACID TABLET (FP) PO SCH (10:28)
[2021-06-21] MEDS: ASPIRIN 81 MG CHEWABLE TABLETS PO SCH (10:28)
[2021-06-21] MEDS: metoPROLOL SUCCINATE 25 MG TAB.SR.24H (FP) PO SCH (10:28)
[2021-06-21] MEDS ORDERED: PT OWN MED DRAWER 7, Y5N ONE ×2 (16:53→21:24)
[2021-06-21] MEDS: MELATONIN 5 MG TABLETS PO SCH (21:22)
[2021-06-21] MEDS: THIAMINE HCL 100 MG TABLET (FP) PO SCH (21:23)
[2021-06-22] MEDS ORDERED: PT OWN MED DRAWER 7, Y5N ONE ×2 (03:11→09:22)
[2021-06-22 07:35] VITALS: BP 147/80; PULSE 84
[2021-06-22] MEDS: ASPIRIN 81 MG CHEWABLE TABLETS PO SCH (09:19)
[2021-06-22] MEDS: PRENATAL VITAMINS W/ FOLIC ACID TABLET (FP) PO SCH (09:19)
[2021-06-22] MEDS: amLODIPine BESYLATE 10 MG TABLET (FP) PO SCH (09:19)
[2021-06-22] MEDS: metoPROLOL SUCCINATE 25 MG TAB.SR.24H (FP) PO SCH (09:19)
== END 2021-06-22 11:08 | disposition home or self-care (01) | DRG 895 ==
LOC: YASAS 13:08 → Y3W 13:09
PROVIDERS: ADMIT Allergy & Immunology; ATTEND Allergy & Immunology
PROC: HZ42ZZZ Group Counseling for Substance Abuse Treatment, Cognitive-Behavioral (ICD-10-PCS; principal; 2021-06-18)
DX: F10.20 Alcohol dependence, uncomplicated (principal); F11.20 Opioid dependence, uncomplicated; F31.9 Bipolar disorder, unspecified; C61 Malignant neoplasm of prostate; I10 Essential (primary) hypertension; E11.9 Type 2 diabetes mellitus without complications; Z79.84 Long term (current) use of oral hypoglycemic drugs; J42 Unspecified chronic bronchitis; J45.909 Unspecified asthma, uncomplicated; Z96.0 Presence of urogenital implants; E66.9 Obesity, unspecified; Z68.36 Body mass index [BMI] 36.0-36.9, adult; Z86.79 Personal history of other diseases of the circulatory system; Z88.0 Allergy status to penicillin; Z91.041 Radiographic dye allergy status
CPT/HCPCS: 82962

== ENCOUNTER 2021-08-24 10:48 | Inpatient (IN) | payer OTHER ==
[2021-08-24 11:46] VITALS: BMI 34.7
[2021-08-24] MEDS ORDERED: diazePAM 5 MG TABLET PO PRN (12:45)
[2021-08-24] MEDS ORDERED: ACETAMINOPHEN 325 MG TABLET (FP) PO PRN ×2 (12:45)
[2021-08-24] MEDS ORDERED: NICOTINE 10 MG CARTRIDGE (INHALER) IH PRN (12:45)
[2021-08-24] MEDS ORDERED: MAGNESIUM HYDROX 2400MG/30ML ORAL SUSPENSION 30 ML CUP PO PRN (12:45)
[2021-08-24] MEDS ORDERED: MAGNESIUM CITRATE 300 ML BOTTLE PO PRN (12:45)
[2021-08-24] MEDS ORDERED: MENTHOL/PHENOL 1 EACH UD MM PRN (12:45)
[2021-08-24] MEDS ORDERED: BISMUTH SUBSALICYLATE 524 MG/30 ML PO PRN (12:45)
[2021-08-24] MEDS ORDERED: IBUPROFEN 400 MG TABLET (FP) PO PRN (12:45)
[2021-08-24] MEDS ORDERED: METHOCARBAMOL 500 MG TABLET PO PRN (12:45)
[2021-08-24] MEDS ORDERED: ONDANSETRON *ODT* 4 MG TABLET SL PRN (12:45)
[2021-08-24] MEDS ORDERED: MAG HYDROX/AL HYDROX/SIMETH 30 ML UNIT-DOSE CUP PO PRN (12:45)
[2021-08-24] MEDS ORDERED: ALBUTEROL SO4 HFA INHALER IH PRN (12:48)
[2021-08-24] MEDS: hydrOXYzine PAMOATE 25 MG CAPSULE (FP) PO SCH ×3 (13:52→22:29)
[2021-08-24 15:27] LABS: BASO % 0.4 % (0-2.0); EOS % 2.1 % (0-4.5); HEMATOCRIT 36.5 % (35.4-49); LYMPH % 12.3 % (8-40); MCH 31.4 pg (25.7-33.7); MCHC 35.6 g/dl (32.0-35.9); MEAN CELL VOLUME 88.1 fl (80-96); MEAN PLT VOLUME 7.2 fl (7.5-11.1); MONO % 6.9 % (3.8-10.2); NEUT % 78.3 % (42.8-82.8); PLATELET COUNT 310 10^3/uL (134-434); RBC 4.15 M/mm3 (4.00-5.60); RDW 13.5 % (11.9-15.9); WHITE BLOOD COUNT 6.8 K/mm3 (4.0-10.0)
[2021-08-24 15:31] LABS: CALCIUM 9.2 mg/dL (8.5-10.1)
[2021-08-24 15:32] LABS: ALBUMIN 3.8 g/dl (3.4-5.0); BLOOD UREA NITROGEN 14.4 mg/dL (7-18)
[2021-08-24 15:36] LABS: BILIRUBIN,TOTAL 0.5 mg/dL (0.2-1); TOT PROT 7.5 g/dl (6.4-8.2)
[2021-08-24] MEDS: diazePAM 5 MG TABLET PO SCH ×2 (17:21→22:30)
[2021-08-24] MEDS: MELATONIN 5 MG TABLETS PO SCH (22:29)
[2021-08-24] MEDS: THIAMINE HCL 100 MG TABLET (FP) PO SCH (22:29)
[2021-08-25] MEDS: hydrOXYzine PAMOATE 25 MG CAPSULE (FP) PO SCH ×5 (06:13→22:38)
[2021-08-25] MEDS: diazePAM 5 MG TABLET PO SCH ×4 (06:13→22:38)
[2021-08-25] MEDS: amLODIPine BESYLATE 10 MG TABLET (FP) PO SCH (10:37)
[2021-08-25] MEDS: ASPIRIN 81 MG CHEWABLE TABLETS PO SCH (10:37)
[2021-08-25] MEDS: PRENATAL VITAMINS W/ FOLIC ACID TABLET (FP) PO SCH (10:41)
[2021-08-25 11:46] LABS: BASO % 0.6 % (0-2.0); EOS % 3.3 % (0-4.5); HEMATOCRIT 34.1 % (35.4-49); HEMOGLOBIN 12.1 GM/dL (11.7-16.9); LYMPH % 12.3 % (8-40); MCH 31.3 pg (25.7-33.7); MCHC 35.6 g/dl (32.0-35.9); MEAN CELL VOLUME 88.1 fl (80-96); MEAN PLT VOLUME 6.7 fl (7.5-11.1); MONO % 9.8 % (3.8-10.2); PLATELET COUNT 260 10^3/uL (134-434); RBC 3.87 M/mm3 (4.00-5.60); RDW 13.4 % (11.9-15.9); WHITE BLOOD COUNT 4.9 K/mm3 (4.0-10.0)
[2021-08-25] MEDS: THIAMINE HCL 100 MG TABLET (FP) PO SCH (22:38)
[2021-08-25] MEDS: MELATONIN 5 MG TABLETS PO SCH (22:38)
[2021-08-26] MEDS: diazePAM 5 MG TABLET PO SCH ×3 (06:34→23:24)
[2021-08-26] MEDS: hydrOXYzine PAMOATE 25 MG CAPSULE (FP) PO SCH ×5 (06:35→23:23)
[2021-08-26] MEDS: ASPIRIN 81 MG CHEWABLE TABLETS PO SCH (10:45)
[2021-08-26] MEDS: amLODIPine BESYLATE 10 MG TABLET (FP) PO SCH (10:46)
[2021-08-26] MEDS: PRENATAL VITAMINS W/ FOLIC ACID TABLET (FP) PO SCH (10:46)
[2021-08-26] MEDS ORDERED: FLU VACC QS2021-22(6MOS UP)/PF 60 MCG/0.5 ML SYRINGE IM ONE (12:00)
[2021-08-26] MEDS: MELATONIN 5 MG TABLETS PO SCH (23:23)
[2021-08-26] MEDS: THIAMINE HCL 100 MG TABLET (FP) PO SCH (23:24)
[2021-08-27] MEDS ORDERED: diazePAM 5 MG TABLET PO SCH (06:00)
[2021-08-27] MEDS: hydrOXYzine PAMOATE 25 MG CAPSULE (FP) PO SCH ×2 (06:11→10:06)
[2021-08-27 09:51] VITALS: BP 118/56; PULSE 93; TEMP 97.1
[2021-08-27] MEDS: PRENATAL VITAMINS W/ FOLIC ACID TABLET (FP) PO SCH (10:06)
[2021-08-27] MEDS: amLODIPine BESYLATE 10 MG TABLET (FP) PO SCH (10:06)
[2021-08-27] MEDS: ASPIRIN 81 MG CHEWABLE TABLETS PO SCH (10:06)
[2021-08-28] MEDS ORDERED: diazePAM 5 MG TABLET PO ONE (06:00)
== END 2021-08-27 11:16 | disposition home or self-care (01) | DRG 897 ==
LOC: YASAS 10:48 → Y3N 12:25
PROVIDERS: ADMIT Allergy & Immunology; ATTEND Allergy & Immunology
PROC: HZ2ZZZZ Detoxification Services for Substance Abuse Treatment (ICD-10-PCS; principal; 2021-08-24)
DX: F10.230 Alcohol dependence with withdrawal, uncomplicated (principal); F20.9 Schizophrenia, unspecified; E78.00 Pure hypercholesterolemia, unspecified; I11.0 Hypertensive heart disease with heart failure; E11.9 Type 2 diabetes mellitus without complications; J44.9 Chronic obstructive pulmonary disease, unspecified; Z79.84 Long term (current) use of oral hypoglycemic drugs; R33.8 Other retention of urine; Z96.0 Presence of urogenital implants; Z85.46 Personal history of malignant neoplasm of prostate; Z90.79 Acquired absence of other genital organ(s); Z86.59 Personal history of other mental and behavioral disorders; Z88.0 Allergy status to penicillin; Z91.041 Radiographic dye allergy status
CPT/HCPCS: 36415; 80053; 82962; 85025; 86780; C9803; U0003; U0005

== ENCOUNTER 2022-03-22 12:04 | Inpatient (IN) | payer OTHER ==
[2022-03-22] MEDS ORDERED: LOPERAMIDE HCL 2 MG CAPSULE PO PRN (12:33)
[2022-03-22] MEDS ORDERED: chlordiazePOXIDE HCL 25 MG CAPSULE PO PRN (12:33)
[2022-03-22] MEDS ORDERED: MAGNESIUM HYDROX 2400MG/30ML ORAL SUSPENSION 30 ML CUP PO PRN (12:33)
[2022-03-22] MEDS ORDERED: MAG HYDROX/AL HYDROX/SIMETH 30 ML UNIT-DOSE CUP PO PRN (12:33)
[2022-03-22] MEDS ORDERED: BENZOCAINE/MENTHOL (CHLORASEPTIC ) LOZENGE MM PRN (12:33)
[2022-03-22] MEDS ORDERED: MAGNESIUM CITRATE 300 ML BOTTLE PO PRN (12:33)
[2022-03-22] MEDS ORDERED: ONDANSETRON *ODT* 4 MG TABLET SL PRN (12:33)
[2022-03-22] MEDS ORDERED: BISMUTH SUBSALICYLATE 262 MG/15 ML BTL PO PRN (12:33)
[2022-03-22] MEDS ORDERED: IBUPROFEN 400 MG TABLET (FP) PO PRN (12:33)
[2022-03-22] MEDS ORDERED: ACETAMINOPHEN 325 MG TABLET (FP) PO PRN ×2 (12:33)
[2022-03-22] MEDS ORDERED: DICYCLOMINE HCL 10 MG CAPSULE PO PRN (12:33)
[2022-03-22 13:59] VITALS: BMI 35.7
[2022-03-22] MEDS ORDERED: ALBUTEROL SO4 HFA INHALER IH PRN (14:08)
[2022-03-22] MEDS: ASPIRIN 81 MG CHEWABLE TABLETS PO SCH (15:19)
[2022-03-22] MEDS: PRENATAL VITAMINS W/ FOLIC ACID TABLET (FP) PO SCH (15:19)
[2022-03-22 15:24] LABS: HEMATOCRIT 32.7 % (35.4-49); HEMOGLOBIN 11.2 GM/dL (11.7-16.9); MCH 28.9 pg (25.7-33.7); MCHC 34.3 g/dl (32.0-35.9); MEAN CELL VOLUME 84.3 fl (80-96); MEAN PLT VOLUME 6.7 fl (7.5-11.1); PLATELET COUNT 315 10^3/uL (134-434); RBC 3.88 M/mm3 (4.00-5.60); RDW 16.2 % (11.9-15.9); WHITE BLOOD COUNT 5.3 K/mm3 (4.0-10.0)
[2022-03-22 15:45] LABS: CALCIUM 8.2 mg/dL (8.5-10.1)
[2022-03-22 15:46] LABS: ALBUMIN 3.5 g/dl (3.4-5.0); BLOOD UREA NITROGEN 11.3 mg/dL (7-18)
[2022-03-22 15:49] LABS: CREATININE 0.9 mg/dL (0.55-1.3)
[2022-03-22 15:51] LABS: BILIRUBIN,TOTAL 0.4 mg/dL (0.2-1)
[2022-03-22] MEDS: chlordiazePOXIDE HCL 25 MG CAPSULE PO SCH ×2 (17:47→22:39)
[2022-03-22] MEDS ORDERED: MELATONIN 5 MG TABLETS PO SCH (22:00)
[2022-03-22] MEDS: hydrOXYzine PAMOATE 25 MG CAPSULE (FP) PO PRN (22:39)
[2022-03-22] MEDS: THIAMINE HCL 100 MG TABLET (FP) PO SCH (22:39)
[2022-03-23] MEDS: chlordiazePOXIDE HCL 25 MG CAPSULE PO SCH ×4 (05:29→22:12)
[2022-03-23] MEDS: hydrOXYzine PAMOATE 25 MG CAPSULE (FP) PO PRN (10:32)
[2022-03-23] MEDS: ASPIRIN 81 MG CHEWABLE TABLETS PO SCH (10:32)
[2022-03-23] MEDS: PRENATAL VITAMINS W/ FOLIC ACID TABLET (FP) PO SCH (10:32)
[2022-03-23] MEDS: METHOCARBAMOL 500 MG TABLET PO PRN (10:32)
[2022-03-23] MEDS: CLOPIDOGREL BISULFATE 75 MG TABLET (FP) PO SCH (19:53)
[2022-03-23] MEDS: ATORVASTATIN CA 80 MG TABLET (FP) PO SCH (22:11)
[2022-03-23] MEDS: THIAMINE HCL 100 MG TABLET (FP) PO SCH (22:11)
[2022-03-24] MEDS: chlordiazePOXIDE HCL 25 MG CAPSULE PO SCH ×4 (05:59→22:24)
[2022-03-24] MEDS: ASPIRIN 81 MG CHEWABLE TABLETS PO SCH (10:22)
[2022-03-24] MEDS: PRENATAL VITAMINS W/ FOLIC ACID TABLET (FP) PO SCH (10:22)
[2022-03-24] MEDS: CLOPIDOGREL BISULFATE 75 MG TABLET (FP) PO SCH (10:22)
[2022-03-24] MEDS ORDERED: CLOPIDOGREL BISULFATE 75 MG TABLET (FP) PO SCH (17:00)
[2022-03-24] MEDS: FUROSEMIDE 20 MG TABLET (FP) PO SCH (18:19)
[2022-03-24] MEDS: ATORVASTATIN CA 80 MG TABLET (FP) PO SCH (22:24)
[2022-03-24] MEDS: THIAMINE HCL 100 MG TABLET (FP) PO SCH (22:24)
[2022-03-24] MEDS: MELATONIN 5 MG TABLETS PO PRN (22:25)
[2022-03-25] MEDS ORDERED: chlordiazePOXIDE HCL 10 MG CAPSULE PO PRN
[2022-03-25] MEDS: chlordiazePOXIDE HCL 10 MG CAPSULE PO SCH ×4 (05:10→22:30)
[2022-03-25] MEDS ORDERED: metFORMIN HCL 500 MG TABLET (FP) PO SCH (07:00)
[2022-03-25] MEDS: PRENATAL VITAMINS W/ FOLIC ACID TABLET (FP) PO SCH (10:45)
[2022-03-25] MEDS: FUROSEMIDE 20 MG TABLET (FP) PO SCH (10:46)
[2022-03-25] MEDS: ASPIRIN 81 MG CHEWABLE TABLETS PO SCH (10:46)
[2022-03-25] MEDS: hydrOXYzine PAMOATE 25 MG CAPSULE (FP) PO PRN (10:46)
[2022-03-25] MEDS: METHOCARBAMOL 500 MG TABLET PO PRN (10:46)
[2022-03-25] MEDS: CLOPIDOGREL BISULFATE 75 MG TABLET (FP) PO SCH (10:46)
[2022-03-25] MEDS: MELATONIN 5 MG TABLETS PO PRN (22:30)
[2022-03-25] MEDS: ATORVASTATIN CA 80 MG TABLET (FP) PO SCH (22:30)
[2022-03-25] MEDS: THIAMINE HCL 100 MG TABLET (FP) PO SCH (22:30)
[2022-03-26] MEDS: chlordiazePOXIDE HCL 10 MG CAPSULE PO SCH ×2 (05:54→18:10)
[2022-03-26] MEDS: hydrOXYzine PAMOATE 25 MG CAPSULE (FP) PO PRN ×2 (10:31→22:10)
[2022-03-26] MEDS: PRENATAL VITAMINS W/ FOLIC ACID TABLET (FP) PO SCH (10:31)
[2022-03-26] MEDS: ASPIRIN 81 MG CHEWABLE TABLETS PO SCH (10:31)
[2022-03-26] MEDS: FUROSEMIDE 20 MG TABLET (FP) PO SCH (10:31)
[2022-03-26] MEDS: CLOPIDOGREL BISULFATE 75 MG TABLET (FP) PO SCH (10:32)
[2022-03-26] MEDS: METHOCARBAMOL 500 MG TABLET PO PRN (10:32)
[2022-03-26] MEDS: THIAMINE HCL 100 MG TABLET (FP) PO SCH (22:09)
[2022-03-26] MEDS: ATORVASTATIN CA 80 MG TABLET (FP) PO SCH (22:09)
[2022-03-26] MEDS: MELATONIN 5 MG TABLETS PO PRN (22:09)
[2022-03-26 22:30] VITALS: TEMP 96.8
[2022-03-27] MEDS ORDERED: chlordiazePOXIDE HCL 10 MG CAPSULE PO ONE (05:00)
[2022-03-27] MEDS: hydrOXYzine PAMOATE 25 MG CAPSULE (FP) PO PRN (06:00)
[2022-03-27 06:27] VITALS: BP 132/79; PULSE 73
== END 2022-03-27 09:35 | disposition home or self-care (01) | DRG 897 ==
LOC: YASAS 12:04 → Y6N 13:59
PROVIDERS: ADMIT Allergy & Immunology; ATTEND Surgery
PROC: HZ2ZZZZ Detoxification Services for Substance Abuse Treatment (ICD-10-PCS; principal; 2022-03-22)
DX: F10.230 Alcohol dependence with withdrawal, uncomplicated (principal); F10.282 Alcohol dependence with alcohol-induced sleep disorder; F10.24 Alcohol dependence with alcohol-induced mood disorder; F31.9 Bipolar disorder, unspecified; G47.00 Insomnia, unspecified; E11.9 Type 2 diabetes mellitus without complications; Z79.84 Long term (current) use of oral hypoglycemic drugs; H54.8 Legal blindness, as defined in USA; J44.9 Chronic obstructive pulmonary disease, unspecified; I48.91 Unspecified atrial fibrillation; J45.909 Unspecified asthma, uncomplicated; I25.10 Atherosclerotic heart disease of native coronary artery without angina pectoris; I10 Essential (primary) hypertension; I25.2 Old myocardial infarction; Z95.1 Presence of aortocoronary bypass graft; Z85.46 Personal history of malignant neoplasm of prostate; Z96.0 Presence of urogenital implants; Z88.0 Allergy status to penicillin; Z91.041 Radiographic dye allergy status; Z88.8 Allergy status to other drugs, medicaments and biological substances
CPT/HCPCS: 36415; 80053; 82962; 84132; 85027; 86780; C9803-CS; U0003; U0005

== ENCOUNTER 2022-12-31 09:14 | Inpatient (IN) | payer OTHER ==
[2022-12-31 10:00] VITALS: BMI 37.2
[2022-12-31] MEDS ORDERED: MAGNESIUM HYDROX 2400MG/30ML ORAL SUSPENSION 30 ML CUP PO PRN (10:29)
[2022-12-31] MEDS ORDERED: LORazepam 1 MG TABLET PO PRN (10:29)
[2022-12-31] MEDS ORDERED: POLYETHYLENE GLYCOL (HEALTHYLAX) 3350 17 GM PACKET PO PRN (10:29)
[2022-12-31] MEDS ORDERED: ACETAMINOPHEN 325 MG TABLET (FP) PO PRN ×2 (10:29)
[2022-12-31] MEDS ORDERED: BACLOFEN 10 MG TABLET (FP) PO PRN (10:29)
[2022-12-31] MEDS ORDERED: BENZOCAINE/MENTHOL (CHLORASEPTIC ) LOZENGE MM PRN (10:29)
[2022-12-31] MEDS ORDERED: BISMUTH SUBSALICYLATE 524 MG/30 ML PO PRN (10:29)
[2022-12-31] MEDS ORDERED: LOPERAMIDE HCL 2 MG CAPSULE PO PRN (10:29)
[2022-12-31] MEDS ORDERED: IBUPROFEN 600 MG TABLET (FP) PO PRN (10:29)
[2022-12-31] MEDS ORDERED: MAG HYDROX/AL HYDROX/SIMETH 30 ML UNIT-DOSE CUP PO PRN (10:29)
[2022-12-31] MEDS ORDERED: DICYCLOMINE HCL 10 MG CAPSULE PO PRN (10:29)
[2022-12-31] MEDS ORDERED: NALOXONE HCL (KLOXXADO) 8 MG SPRAY NS PRN (10:29)
[2022-12-31] MEDS ORDERED: IBUPROFEN 400 MG TABLET (FP) PO PRN (10:29)
[2022-12-31] MEDS ORDERED: ONDANSETRON *ODT* 4 MG TABLET SL PRN (10:29)
[2022-12-31] MEDS: ALBUTEROL SO4 HFA INHALER IH PRN ×2 (10:58→23:12)
[2022-12-31] MEDS ORDERED: LORazepam 1 MG TABLET ONE (11:02)
[2022-12-31] MEDS: LORazepam 2 MG TABLET PO SCH ×2 (11:05→18:03)
[2022-12-31] MEDS: CLOPIDOGREL BISULFATE 75 MG TABLET (FP) PO SCH (11:33)
[2022-12-31] MEDS: FUROSEMIDE 20 MG TABLET (FP) PO SCH (11:33)
[2022-12-31] MEDS: ALBUTEROL SO4 0.083% IH SOL 2.5 MG/3 ML VIAL.NEB. NEB SCH ×3 (11:43→22:55)
[2022-12-31] MEDS ORDERED: LORazepam 1 MG TABLET PO SCH (17:02)
[2022-12-31] MEDS: metFORMIN HCL 500 MG TABLET (FP) PO SCH (17:03)
[2022-12-31] MEDS: LORazepam 1 MG TABLET PO SCH ×2 (17:57→22:54)
[2022-12-31] MEDS: THIAMINE HCL 100 MG TABLET (FP) PO SCH (22:54)
[2022-12-31] MEDS: MELATONIN 5 MG TABLETS PO SCH (22:55)
[2022-12-31] MEDS: guaiFENesin 200 MG/10 ML 10 ML UNIT-DOSE CUPS PO PRN (23:44)
[2023-01-01] MEDS: predniSONE 20 MG TABLET (UD) PO SCH ×2 (00:50→10:19)
[2023-01-01] MEDS: ALBUTEROL SO4 0.083% IH SOL 2.5 MG/3 ML VIAL.NEB. NEB SCH (04:20)
[2023-01-01] MEDS: LORazepam 1 MG TABLET PO SCH ×4 (05:42→22:16)
[2023-01-01] MEDS: metFORMIN HCL 500 MG TABLET (FP) PO SCH ×2 (06:00→17:02)
[2023-01-01] MEDS: INSULIN SLIDING SCALE (NOVOLOG) 1 VIAL SQ SCH ×4 (07:22→21:38)
[2023-01-01] MEDS: PRENATAL VITAMINS W/ FOLIC ACID TABLET (FP) PO SCH (10:19)
[2023-01-01] MEDS: CLOPIDOGREL BISULFATE 75 MG TABLET (FP) PO SCH (10:19)
[2023-01-01] MEDS: FUROSEMIDE 20 MG TABLET (FP) PO SCH (10:19)
[2023-01-01] MEDS: ALBUTEROL SO4 HFA INHALER IH PRN ×3 (11:55→21:37)
[2023-01-01] MEDS: guaiFENesin 200 MG/10 ML 10 ML UNIT-DOSE CUPS PO PRN ×3 (11:56→21:37)
[2023-01-01] MEDS: THIAMINE HCL 100 MG TABLET (FP) PO SCH (21:37)
[2023-01-01] MEDS: MELATONIN 5 MG TABLETS PO SCH (21:37)
[2023-01-02] MEDS: LORazepam 1 MG TABLET PO SCH ×4 (05:53→22:01)
[2023-01-02] MEDS: metFORMIN HCL 500 MG TABLET (FP) PO SCH ×2 (06:03→17:00)
[2023-01-02] MEDS: INSULIN SLIDING SCALE (NOVOLOG) 1 VIAL SQ SCH ×4 (06:03→21:47)
[2023-01-02] MEDS: FUROSEMIDE 20 MG TABLET (FP) PO SCH (10:15)
[2023-01-02] MEDS: predniSONE 20 MG TABLET (UD) PO SCH (10:17)
[2023-01-02] MEDS: PRENATAL VITAMINS W/ FOLIC ACID TABLET (FP) PO SCH (10:17)
[2023-01-02] MEDS: CLOPIDOGREL BISULFATE 75 MG TABLET (FP) PO SCH (10:17)
[2023-01-02] MEDS: ALBUTEROL SO4 2.5/IPRATROPIUM 0.5 INH SOL 3 ML VIAL.NEB. NEB SCH ×3 (11:55→22:57)
[2023-01-02 12:26] LABS: HEMOGLOBIN 10.8 GM/dL (11.7-16.9); MCH 30.1 pg (25.7-33.7); MCHC 33.7 g/dl (32.0-35.9); MEAN CELL VOLUME 89.3 fl (80-96); MEAN PLT VOLUME 7.1 fl (7.5-11.1); PLATELET COUNT 289 10^3/uL (134-434); RBC 3.58 M/mm3 (4.00-5.60); RDW 14.1 % (11.9-15.9); WHITE BLOOD COUNT 10.7 K/mm3 (4.0-10.0)
[2023-01-02 13:33] LABS: BLOOD UREA NITROGEN 23.6 mg/dL (7-18); CALCIUM 9.2 mg/dL (8.5-10.1)
[2023-01-02 13:34] LABS: ALBUMIN 3.2 g/dl (3.4-5.0)
[2023-01-02 13:39] LABS: TOT PROT 6.2 g/dl (6.4-8.2)
[2023-01-02 13:41] LABS: BILIRUBIN,TOTAL 0.6 mg/dL (0.2-1)
[2023-01-02] MEDS: ALBUTEROL SO4 HFA INHALER IH PRN ×2 (17:00→21:44)
[2023-01-02] MEDS: guaiFENesin 200 MG/10 ML 10 ML UNIT-DOSE CUPS PO PRN (21:43)
[2023-01-02] MEDS: THIAMINE HCL 100 MG TABLET (FP) PO SCH (21:46)
[2023-01-02] MEDS: MELATONIN 5 MG TABLETS PO SCH (22:00)
[2023-01-02] MEDS ORDERED: METOPROLOL TARTRATE 25 MG TABLET (FP) PO ONE (23:55)
[2023-01-03] MEDS ORDERED: LORazepam 0.5 MG TABLET PO PRN
[2023-01-03] MEDS: LORazepam 0.5 MG TABLET PO SCH ×4 (05:58→22:02)
[2023-01-03] MEDS: ALBUTEROL SO4 2.5/IPRATROPIUM 0.5 INH SOL 3 ML VIAL.NEB. NEB SCH ×4 (05:59→22:03)
[2023-01-03] MEDS: metFORMIN HCL 500 MG TABLET (FP) PO SCH ×2 (06:01→17:29)
[2023-01-03] MEDS: INSULIN SLIDING SCALE (NOVOLOG) 1 VIAL SQ SCH ×4 (07:05→22:00)
[2023-01-03] MEDS: CLOPIDOGREL BISULFATE 75 MG TABLET (FP) PO SCH (09:54)
[2023-01-03] MEDS: PRENATAL VITAMINS W/ FOLIC ACID TABLET (FP) PO SCH (09:54)
[2023-01-03] MEDS: FUROSEMIDE 20 MG TABLET (FP) PO SCH (09:54)
[2023-01-03] MEDS: predniSONE 20 MG TABLET (UD) PO SCH (09:55)
[2023-01-03] MEDS ORDERED: AZITHROMYCIN 250 MG TABLET PO ONE (15:15)
[2023-01-03] MEDS: MELATONIN 5 MG TABLETS PO SCH (22:02)
[2023-01-03] MEDS: THIAMINE HCL 100 MG TABLET (FP) PO SCH (22:02)
[2023-01-04] MEDS ORDERED: LORazepam 0.5 MG TABLET PO ONE (05:00)
[2023-01-04] MEDS: ALBUTEROL SO4 2.5/IPRATROPIUM 0.5 INH SOL 3 ML VIAL.NEB. NEB SCH (05:02)
[2023-01-04] MEDS: metFORMIN HCL 500 MG TABLET (FP) PO SCH (06:02)
[2023-01-04] MEDS: INSULIN SLIDING SCALE (NOVOLOG) 1 VIAL SQ SCH ×2 (07:58→11:01)
[2023-01-04] MEDS ORDERED: AZITHROMYCIN 250 MG TABLET PO SCH (10:00)
[2023-01-04 10:04] VITALS: BP 135/65; PULSE 89; RESP 18; TEMP 98.8
[2023-01-04] MEDS: PRENATAL VITAMINS W/ FOLIC ACID TABLET (FP) PO SCH (10:53)
[2023-01-04] MEDS: CLOPIDOGREL BISULFATE 75 MG TABLET (FP) PO SCH (10:53)
[2023-01-04] MEDS: predniSONE 20 MG TABLET (UD) PO SCH (10:53)
[2023-01-04] MEDS: FUROSEMIDE 20 MG TABLET (FP) PO SCH (10:53)
== END 2023-01-04 11:17 | disposition other institution (70) | DRG 897 ==
LOC: YASAS 09:14 → Y3N 10:52
PROVIDERS: ADMIT Allergy & Immunology; ATTEND Surgery
PROC: HZ2ZZZZ Detoxification Services for Substance Abuse Treatment (ICD-10-PCS; principal; 2022-12-31)
DX: F10.230 Alcohol dependence with withdrawal, uncomplicated (principal); J44.1 Chronic obstructive pulmonary disease with (acute) exacerbation; F10.282 Alcohol dependence with alcohol-induced sleep disorder; F31.9 Bipolar disorder, unspecified; I25.10 Atherosclerotic heart disease of native coronary artery without angina pectoris; I10 Essential (primary) hypertension; Z95.1 Presence of aortocoronary bypass graft; E11.9 Type 2 diabetes mellitus without complications; Z79.84 Long term (current) use of oral hypoglycemic drugs; G47.33 Obstructive sleep apnea (adult) (pediatric); J45.20 Mild intermittent asthma, uncomplicated; M54.50 Low back pain, unspecified; G89.29 Other chronic pain; E66.9 Obesity, unspecified; Z68.37 Body mass index [BMI] 37.0-37.9, adult; Z86.73 Personal history of transient ischemic attack (TIA), and cerebral infarction without residual deficits; Z85.46 Personal history of malignant neoplasm of prostate; Z90.79 Acquired absence of other genital organ(s); Z96.0 Presence of urogenital implants
CPT/HCPCS: 36415; 71046-TC-FY; 80053; 82962; 85027; 86780; 93005; 93010; 94640; C9803-CS; U0003; U0005

== ENCOUNTER 2023-01-04 15:42 | Inpatient (IN) | payer OTHER ==
[2023-01-04 16:39] VITALS: BMI 38.0
[2023-01-04] MEDS ORDERED: ALBUTEROL SO4 2.5/IPRATROPIUM 0.5 INH SOL 3 ML VIAL.NEB. NEB ONE ×2 (16:56→17:11)
[2023-01-04] MEDS ORDERED: POLYETHYLENE GLYCOL (HEALTHYLAX) 3350 17 GM PACKET PO PRN (17:58)
[2023-01-04] MEDS ORDERED: MAG HYDROX/AL HYDROX/SIMETH 30 ML UNIT-DOSE CUP PO PRN (17:58)
[2023-01-04] MEDS ORDERED: MAGNESIUM HYDROX 2400MG/30ML ORAL SUSPENSION 30 ML CUP PO PRN (17:58)
[2023-01-04] MEDS ORDERED: guaiFENesin 200 MG/10 ML 10 ML UNIT-DOSE CUPS PO PRN (17:58)
[2023-01-04] MEDS ORDERED: LOPERAMIDE HCL 2 MG CAPSULE PO PRN (17:58)
[2023-01-04] MEDS ORDERED: IBUPROFEN 400 MG TABLET (FP) PO PRN (17:58)
[2023-01-04] MEDS ORDERED: BENZOCAINE/MENTHOL (CHLORASEPTIC ) LOZENGE MM PRN (17:58)
[2023-01-04] MEDS ORDERED: hydrOXYzine PAMOATE 25 MG CAPSULE (FP) PO PRN (17:58)
[2023-01-04] MEDS ORDERED: ACETAMINOPHEN 325 MG TABLET (FP) PO PRN (17:58)
[2023-01-04] MEDS ORDERED: P-EPHED 60MG/TRIPROLIDI 2.5MG TABLET PO PRN (17:58)
[2023-01-04] MEDS: THIAMINE HCL 100 MG TABLET (FP) PO SCH (21:26)
[2023-01-04] MEDS: MELATONIN 5 MG TABLETS PO SCH (21:27)
[2023-01-04] MEDS: ALBUTEROL SO4 2.5/IPRATROPIUM 0.5 INH SOL 3 ML VIAL.NEB. NEB SCH (22:04)
[2023-01-05] MEDS ORDERED: ALBUTEROL SO4 2.5/IPRATROPIUM 0.5 INH SOL 3 ML VIAL.NEB. NEB PRN (08:45)
[2023-01-05] MEDS: ALBUTEROL SO4 2.5/IPRATROPIUM 0.5 INH SOL 3 ML VIAL.NEB. NEB SCH (08:57)
[2023-01-05] MEDS: PRENATAL VITAMINS W/ FOLIC ACID TABLET (FP) PO SCH (10:26)
[2023-01-05 11:08] LABS: EPI CELLS 9 /uL (0-25.1); HYALINE CASTS 2 /uL (0-3.1); PH,URINE 5.5 (5.0-8.0); URINE APPEARANCE TURBID; URINE BACTERIA 922 /uL (0-1359); URINE BILIRUBIN NEGATIVE (NEGATIVE); URINE COLOR YELLOW; URINE GLUCOSE (UA) 2+ (NEGATIVE); URINE KETONE NEGATIVE (NEGATIVE); URINE LEUK ESTERASE 1+ (NEGATIVE); URINE NITRITE NEGATIVE (NEGATIVE); URINE PROTEIN 2+ (NEGATIVE); URINE RBC 51 /uL (0-23.9); URINE UROBILINOGEN 0.2 mg/dL (0.2-1.0); URINE WBC 73 /uL (0-25.8)
[2023-01-05 11:36] LABS: HEMATOCRIT 34.3 % (35.4-49); HEMOGLOBIN 11.7 GM/dL (11.7-16.9); MCH 30.9 pg (25.7-33.7); MCHC 34.2 g/dl (32.0-35.9); MEAN CELL VOLUME 90.3 fl (80-96); MEAN PLT VOLUME 7.3 fl (7.5-11.1); PLATELET COUNT 293 10^3/uL (134-434); RDW 14.4 % (11.9-15.9); WHITE BLOOD COUNT 8.1 K/mm3 (4.0-10.0)
[2023-01-05] MEDS: FUROSEMIDE 20 MG TABLET (FP) PO SCH (11:46)
[2023-01-05] MEDS: CLOPIDOGREL BISULFATE 75 MG TABLET (FP) PO SCH (11:47)
[2023-01-05] MEDS: ASPIRIN 81 MG CHEWABLE TABLETS PO SCH (11:47)
[2023-01-05 11:58] LABS: SYPHILIS W/ RPR CONF NON-REACTIVE (NONREACTIVE)
[2023-01-05] MEDS: INSULIN SLIDING SCALE (NOVOLOG) 1 VIAL SQ SCH ×3 (12:09→21:13)
[2023-01-05] MEDS: AZITHROMYCIN 250 MG TABLET PO SCH (12:41)
[2023-01-05 13:22] LABS: ALBUMIN 3.3 g/dl (3.4-5.0)
[2023-01-05 13:23] LABS: BLOOD UREA NITROGEN 32.8 mg/dL (7-18)
[2023-01-05 13:25] LABS: TOT PROT 6.3 g/dl (6.4-8.2)
[2023-01-05 13:26] LABS: BILIRUBIN,TOTAL 0.2 mg/dL (0.2-1)
[2023-01-05] MEDS ORDERED: INSULIN (NOVOLOG) ASPART 100 UNITS/ML 10ML VIAL ONE (16:33)
[2023-01-05] MEDS: metFORMIN HCL 500 MG TABLET (FP) PO SCH (17:06)
[2023-01-05] MEDS: MELATONIN 5 MG TABLETS PO SCH (21:11)
[2023-01-05] MEDS: THIAMINE HCL 100 MG TABLET (FP) PO SCH (21:11)
[2023-01-06] MEDS: INSULIN SLIDING SCALE (NOVOLOG) 1 VIAL SQ SCH ×4 (06:39→21:01)
[2023-01-06] MEDS: metFORMIN HCL 500 MG TABLET (FP) PO SCH ×2 (06:40→16:57)
[2023-01-06] MEDS: ASPIRIN 81 MG CHEWABLE TABLETS PO SCH (09:40)
[2023-01-06] MEDS: FUROSEMIDE 20 MG TABLET (FP) PO SCH (09:40)
[2023-01-06] MEDS: AZITHROMYCIN 250 MG TABLET PO SCH (09:40)
[2023-01-06] MEDS: PRENATAL VITAMINS W/ FOLIC ACID TABLET (FP) PO SCH (09:40)
[2023-01-06] MEDS: CLOPIDOGREL BISULFATE 75 MG TABLET (FP) PO SCH (09:40)
[2023-01-06] MEDS ORDERED: INSULIN (NOVOLOG) ASPART 100 UNITS/ML 10ML VIAL ONE (12:01)
[2023-01-06] MEDS: MELATONIN 5 MG TABLETS PO SCH (21:01)
[2023-01-06] MEDS: THIAMINE HCL 100 MG TABLET (FP) PO SCH (21:01)
[2023-01-07] MEDS: metFORMIN HCL 500 MG TABLET (FP) PO SCH ×2 (06:58→16:45)
[2023-01-07] MEDS ORDERED: INSULIN (NOVOLOG) ASPART 100 UNITS/ML 10ML VIAL ONE (06:58)
[2023-01-07] MEDS: INSULIN SLIDING SCALE (NOVOLOG) 1 VIAL SQ SCH ×4 (06:59→21:19)
[2023-01-07] MEDS: FUROSEMIDE 20 MG TABLET (FP) PO SCH (09:44)
[2023-01-07] MEDS: PRENATAL VITAMINS W/ FOLIC ACID TABLET (FP) PO SCH (09:44)
[2023-01-07] MEDS: ASPIRIN 81 MG CHEWABLE TABLETS PO SCH (09:44)
[2023-01-07] MEDS: CLOPIDOGREL BISULFATE 75 MG TABLET (FP) PO SCH (09:44)
[2023-01-07] MEDS: THIAMINE HCL 100 MG TABLET (FP) PO SCH (21:19)
[2023-01-07] MEDS: MELATONIN 5 MG TABLETS PO SCH (21:19)
[2023-01-08] MEDS: metFORMIN HCL 500 MG TABLET (FP) PO SCH ×2 (06:07→19:47)
[2023-01-08] MEDS: INSULIN SLIDING SCALE (NOVOLOG) 1 VIAL SQ SCH ×4 (06:10→21:06)
[2023-01-08] MEDS: FUROSEMIDE 20 MG TABLET (FP) PO SCH (09:28)
[2023-01-08] MEDS: ASPIRIN 81 MG CHEWABLE TABLETS PO SCH (09:28)
[2023-01-08] MEDS: PRENATAL VITAMINS W/ FOLIC ACID TABLET (FP) PO SCH (09:29)
[2023-01-08] MEDS: ALBUTEROL SO4 HFA INHALER IH PRN ×2 (09:29→21:04)
[2023-01-08] MEDS: CLOPIDOGREL BISULFATE 75 MG TABLET (FP) PO SCH (09:29)
[2023-01-08] MEDS: MELATONIN 5 MG TABLETS PO SCH (21:02)
[2023-01-08] MEDS: SULFAMETHOXAZOLE/TRIMETHOPRIM 800MG/160MG D.S. TABLET PO SCH (21:02)
[2023-01-08] MEDS: THIAMINE HCL 100 MG TABLET (FP) PO SCH (21:02)
[2023-01-08 23:33] VITALS: RESP 18
[2023-01-09] MEDS: metFORMIN HCL 500 MG TABLET (FP) PO SCH (07:04)
[2023-01-09] MEDS: INSULIN SLIDING SCALE (NOVOLOG) 1 VIAL SQ SCH ×2 (07:05→11:21)
[2023-01-09 07:43] VITALS: TEMP 96
[2023-01-09] MEDS: ASPIRIN 81 MG CHEWABLE TABLETS PO SCH (09:55)
[2023-01-09] MEDS: PRENATAL VITAMINS W/ FOLIC ACID TABLET (FP) PO SCH (09:55)
[2023-01-09] MEDS: CLOPIDOGREL BISULFATE 75 MG TABLET (FP) PO SCH (09:55)
[2023-01-09] MEDS: FUROSEMIDE 20 MG TABLET (FP) PO SCH (09:56)
[2023-01-09] MEDS: SULFAMETHOXAZOLE/TRIMETHOPRIM 800MG/160MG D.S. TABLET PO SCH (09:56)
[2023-01-09] MEDS: ALBUTEROL SO4 HFA INHALER IH PRN (09:57)
[2023-01-09 11:35] VITALS: BP 148/67; PULSE 93
== END 2023-01-09 12:25 | disposition home or self-care (01) | DRG 895 ==
LOC: YASAS 15:42 → Y5N 17:48
PROVIDERS: ADMIT Allergy & Immunology; ATTEND Psychiatry & Neurology Pain Medicine
PROC: HZ42ZZZ Group Counseling for Substance Abuse Treatment, Cognitive-Behavioral (ICD-10-PCS; principal; 2023-01-04)
DX: F10.20 Alcohol dependence, uncomplicated (principal); F14.20 Cocaine dependence, uncomplicated; N39.0 Urinary tract infection, site not specified; F31.9 Bipolar disorder, unspecified; F10.282 Alcohol dependence with alcohol-induced sleep disorder; E78.5 Hyperlipidemia, unspecified; J44.9 Chronic obstructive pulmonary disease, unspecified; I25.10 Atherosclerotic heart disease of native coronary artery without angina pectoris; I10 Essential (primary) hypertension; Z95.1 Presence of aortocoronary bypass graft; E11.9 Type 2 diabetes mellitus without complications; E66.9 Obesity, unspecified; Z68.38 Body mass index [BMI] 38.0-38.9, adult; Z96.0 Presence of urogenital implants; Z85.46 Personal history of malignant neoplasm of prostate; Z99.89 Dependence on other enabling machines and devices; Z88.0 Allergy status to penicillin; Z88.8 Allergy status to other drugs, medicaments and biological substances; Z91.041 Radiographic dye allergy status; Z79.84 Long term (current) use of oral hypoglycemic drugs; Z79.02 Long term (current) use of antithrombotics/antiplatelets; Z99.81 Dependence on supplemental oxygen
CPT/HCPCS: 36415; 80053; 81003; 82962; 85027; 86780; 86803; 94640; C9803-CS; U0003; U0005

== ENCOUNTER 2023-01-08 13:46 | Emergency (ER) | payer OTHER ==
[2023-01-08 14:04] VITALS: BP 144/62; PULSE 77; RESP 18; TEMP 98; BMI 38.0
[2023-01-08] MEDS ORDERED: LIDOCAINE HCL 2% JELLY 10 ML CARTRIDGE UR ONE (15:01)
[2023-01-08] MEDS ORDERED: KETOROLAC TROMETHAMINE 15 MG/ML VIAL IM ONE (15:01)
[2023-01-08] MEDS ORDERED: LIDOCAINE HCL 2% JELLY 11 ML TP ONE (15:05)
[2023-01-08] MEDS ORDERED: KETOROLAC TROMETHAMINE 15 MG/ML VIAL ONE (15:06)
[2023-01-08 16:35] LABS: EPI CELLS 13 /uL (0-25.1); HYALINE CASTS 3 /uL (0-3.1); PH,URINE 5.5 (5.0-8.0); URINE APPEARANCE TURBID; URINE BACTERIA 78 /uL (0-1359); URINE BILIRUBIN NEGATIVE (NEGATIVE); URINE COLOR RED; URINE GLUCOSE (UA) 1+ (NEGATIVE); URINE KETONE NEGATIVE (NEGATIVE); URINE LEUK ESTERASE 2+ (NEGATIVE); URINE NITRITE NEGATIVE (NEGATIVE); URINE PROTEIN 3+ (NEGATIVE); URINE WBC 1857 /uL (0-25.8)
[2023-01-08] MEDS ORDERED: SULFAMETHOXAZOLE/TRIMETHOPRIM 800MG/160MG D.S. TABLET PO ONE (17:12)
[2023-01-08] MEDS ORDERED: SULFAMETHOXAZOLE/TRIMETHOPRIM 800MG/160MG D.S. TABLET ONE (17:31)
[2023-01-08 17:55] LABS: URINE RBC 30214.5 /uL (0-23.9); YEAST NONE SEEN (NEGATIVE)
== END 2023-01-08 17:56 | disposition home or self-care (01) ==
LOC: JER 13:46
PROC: 3E0233Z Introduction of Anti-inflammatory into Muscle, Percutaneous Approach (ICD-10-PCS; principal; 2023-01-08)
PROC: 0T9B70Z Drainage of Bladder with Drainage Device, Via Natural or Artificial Opening (ICD-10-PCS; 2023-01-08)
DX: T83.091A Other mechanical complication of indwelling urethral catheter, initial encounter (principal); N39.0 Urinary tract infection, site not specified; Y84.6 Urinary catheterization as the cause of abnormal reaction of the patient, or of later complication, without mention of misadventure at the time of the procedure
CPT/HCPCS: 81003; 87086; 87186; 99284-25

== ENCOUNTER 2023-03-05 10:00 | Inpatient (IN) | payer OTHER ==
[2023-03-05 10:31] VITALS: BMI 38.0
[2023-03-05] MEDS ORDERED: DICYCLOMINE HCL 10 MG CAPSULE PO PRN (11:33)
[2023-03-05] MEDS ORDERED: IBUPROFEN 400 MG TABLET (FP) PO PRN (11:33)
[2023-03-05] MEDS ORDERED: BENZOCAINE/MENTHOL (CHLORASEPTIC ) LOZENGE MM PRN (11:33)
[2023-03-05] MEDS ORDERED: IBUPROFEN 600 MG TABLET (FP) PO PRN (11:33)
[2023-03-05] MEDS ORDERED: NALOXONE HCL 0.4 MG/ML VIAL IM PRN (11:33)
[2023-03-05] MEDS ORDERED: ONDANSETRON *ODT* 4 MG TABLET SL PRN (11:33)
[2023-03-05] MEDS ORDERED: BENZONATATE 200 MG CAPSULE PO PRN (11:33)
[2023-03-05] MEDS ORDERED: BISMUTH SUBSALICYLATE 524 MG/30 ML PO PRN (11:33)
[2023-03-05] MEDS ORDERED: NALOXONE HCL (KLOXXADO) 8 MG SPRAY NS PRN (11:33)
[2023-03-05] MEDS ORDERED: hydrOXYzine PAMOATE 25 MG CAPSULE (FP) PO PRN (11:33)
[2023-03-05] MEDS ORDERED: POLYETHYLENE GLYCOL (HEALTHYLAX) 3350 17 GM PACKET PO PRN (11:33)
[2023-03-05] MEDS ORDERED: ACETAMINOPHEN 325 MG TABLET (FP) PO PRN (11:33)
[2023-03-05] MEDS ORDERED: LOPERAMIDE HCL 2 MG CAPSULE PO PRN (11:33)
[2023-03-05] MEDS ORDERED: METHOCARBAMOL 500 MG TABLET PO PRN (11:33)
[2023-03-05] MEDS ORDERED: MAGNESIUM HYDROX 2400MG/30ML ORAL SUSPENSION 30 ML CUP PO PRN (11:33)
[2023-03-05] MEDS ORDERED: chlordiazePOXIDE HCL 25 MG CAPSULE PO PRN (11:33)
[2023-03-05] MEDS ORDERED: MAG HYDROX/AL HYDROX/SIMETH 30 ML UNIT-DOSE CUP PO PRN (11:33)
[2023-03-05] MEDS ORDERED: guaiFENesin 600 MG TABLET.ER (FP) PO PRN (11:33)
[2023-03-05] MEDS ORDERED: INSULIN (NOVOLOG) ASPART 100 UNITS/ML 10ML VIAL SQ ONE (11:59)
[2023-03-05] MEDS ORDERED: INSULIN (NOVOLOG) ASPART 100 UNITS/ML 10ML VIAL ONE ×3 (12:28→22:15)
[2023-03-05] MEDS ORDERED: TUBERCULIN PPD 5 TU/0.1ML VIAL ID ONE (14:02)
[2023-03-05] MEDS ORDERED: chlordiazePOXIDE HCL 25 MG CAPSULE PO SCH (17:00)
[2023-03-05] MEDS: metFORMIN HCL 500 MG TABLET (FP) PO SCH (17:18)
[2023-03-05] MEDS: INSULIN SLIDING SCALE (NOVOLOG) 1 VIAL SQ SCH ×2 (17:19→22:14)
[2023-03-05] MEDS: chlordiazePOXIDE HCL 25 MG CAPSULE PO SCH ×2 (17:20→22:16)
[2023-03-05] MEDS: ALBUTEROL SO4 HFA INHALER IH PRN (18:00)
[2023-03-05] MEDS: THIAMINE HCL 100 MG TABLET (FP) PO SCH (22:16)
[2023-03-05] MEDS: MELATONIN 5 MG TABLETS PO SCH (22:17)
[2023-03-06] MEDS: chlordiazePOXIDE HCL 25 MG CAPSULE PO SCH ×4 (05:42→22:28)
[2023-03-06] MEDS: metFORMIN HCL 500 MG TABLET (FP) PO SCH ×2 (07:16→17:09)
[2023-03-06] MEDS: INSULIN SLIDING SCALE (NOVOLOG) 1 VIAL SQ SCH ×4 (07:22→22:29)
[2023-03-06] MEDS ORDERED: INSULIN (NOVOLOG) ASPART 100 UNITS/ML 10ML VIAL ONE ×4 (07:23→21:54)
[2023-03-06] MEDS: PRENATAL VITAMINS W/ FOLIC ACID TABLET (FP) PO SCH (10:21)
[2023-03-06] MEDS: ASPIRIN 81 MG CHEWABLE TABLETS PO SCH (10:22)
[2023-03-06] MEDS: FUROSEMIDE 20 MG TABLET (FP) PO SCH (10:22)
[2023-03-06] MEDS: CLOPIDOGREL BISULFATE 75 MG TABLET (FP) PO SCH (10:22)
[2023-03-06 11:53] LABS: CHLORIDE 100 mmol/L (98-107); SODIUM 142 mmol/L (136-145)
[2023-03-06 11:56] LABS: GLUCOSE,RANDOM 166 mg/dL (74-106)
[2023-03-06 11:58] LABS: HEMATOCRIT 31.1 % (35.4-49); HEMOGLOBIN 11.2 GM/dL (11.7-16.9); MCH 30.6 pg (25.7-33.7); MCHC 36.1 g/dl (32.0-35.9); MEAN CELL VOLUME 84.8 fl (80-96); MEAN PLT VOLUME 7.5 fl (7.5-11.1); PLATELET COUNT 266 10^3/uL (134-434); RBC 3.67 M/mm3 (4.00-5.60); WHITE BLOOD COUNT 7.1 K/mm3 (4.0-10.0)
[2023-03-06 11:59] LABS: CO2 33 mmol/L (21-32); SGPT/ALT 22 U/L (13-61)
[2023-03-06 12:01] LABS: ALK PHOS 105 U/L (45-117); BILIRUBIN,TOTAL 1.2 mg/dL (0.2-1); TOT PROT 6.1 g/dl (6.4-8.2)
[2023-03-06 12:02] LABS: SGOT/AST 15 U/L (15-37)
[2023-03-06 12:12] LABS: ANION GAP 8 MMOL/L (8-16); POTASSIUM 2.8 mmol/L (3.5-5.1)
[2023-03-06] MEDS ORDERED: POTASSIUM CHLORIDE ORAL LIQUID 20 MEQ/15 ML PO ONE (12:50)
[2023-03-06] MEDS: THIAMINE HCL 100 MG TABLET (FP) PO SCH (22:28)
[2023-03-06] MEDS: POTASSIUM CHLORIDE ORAL LIQUID 20 MEQ/15 ML PO SCH (22:29)
[2023-03-06] MEDS: MELATONIN 5 MG TABLETS PO SCH (22:29)
[2023-03-07] MEDS: chlordiazePOXIDE HCL 25 MG CAPSULE PO SCH ×4 (05:21→22:14)
[2023-03-07] MEDS: INSULIN SLIDING SCALE (NOVOLOG) 1 VIAL SQ SCH ×4 (06:33→22:14)
[2023-03-07] MEDS: metFORMIN HCL 500 MG TABLET (FP) PO SCH ×2 (06:33→16:56)
[2023-03-07] MEDS: POTASSIUM CHLORIDE ORAL LIQUID 20 MEQ/15 ML PO SCH ×2 (10:05→22:13)
[2023-03-07] MEDS: ASPIRIN 81 MG CHEWABLE TABLETS PO SCH (10:06)
[2023-03-07] MEDS: FUROSEMIDE 20 MG TABLET (FP) PO SCH (10:06)
[2023-03-07] MEDS: CLOPIDOGREL BISULFATE 75 MG TABLET (FP) PO SCH (10:06)
[2023-03-07] MEDS: PRENATAL VITAMINS W/ FOLIC ACID TABLET (FP) PO SCH (10:07)
[2023-03-07] MEDS: ALBUTEROL SO4 HFA INHALER IH PRN (11:03)
[2023-03-07 12:41] LABS: POTASSIUM 3.7 mmol/L (3.5-5.1)
[2023-03-07 12:49] LABS: CALCIUM 8.3 mg/dL (8.5-10.1)
[2023-03-07] MEDS ORDERED: INSULIN (NOVOLOG) ASPART 100 UNITS/ML 10ML VIAL ONE (21:58)
[2023-03-07] MEDS: THIAMINE HCL 100 MG TABLET (FP) PO SCH (22:13)
[2023-03-07] MEDS: MELATONIN 5 MG TABLETS PO SCH (22:13)
[2023-03-08] MEDS ORDERED: chlordiazePOXIDE HCL 10 MG CAPSULE PO PRN
[2023-03-08] MEDS: chlordiazePOXIDE HCL 10 MG CAPSULE PO SCH ×4 (05:15→22:05)
[2023-03-08] MEDS: metFORMIN HCL 500 MG TABLET (FP) PO SCH ×2 (06:13→17:13)
[2023-03-08] MEDS: INSULIN SLIDING SCALE (NOVOLOG) 1 VIAL SQ SCH ×4 (06:35→22:10)
[2023-03-08] MEDS ORDERED: INSULIN (NOVOLOG) ASPART 100 UNITS/ML 10ML VIAL ONE ×2 (06:36→11:30)
[2023-03-08] MEDS: PRENATAL VITAMINS W/ FOLIC ACID TABLET (FP) PO SCH (10:12)
[2023-03-08] MEDS: ASPIRIN 81 MG CHEWABLE TABLETS PO SCH (10:13)
[2023-03-08] MEDS: CLOPIDOGREL BISULFATE 75 MG TABLET (FP) PO SCH (10:13)
[2023-03-08] MEDS: FUROSEMIDE 20 MG TABLET (FP) PO SCH (10:13)
[2023-03-08] MEDS: ALBUTEROL SO4 HFA INHALER IH PRN (13:42)
[2023-03-08] MEDS: THIAMINE HCL 100 MG TABLET (FP) PO SCH (22:04)
[2023-03-08] MEDS: MELATONIN 5 MG TABLETS PO SCH (22:05)
[2023-03-09] MEDS ORDERED: chlordiazePOXIDE HCL 10 MG CAPSULE PO SCH (05:00)
[2023-03-09] MEDS: metFORMIN HCL 500 MG TABLET (FP) PO SCH (06:35)
[2023-03-09] MEDS: INSULIN SLIDING SCALE (NOVOLOG) 1 VIAL SQ SCH (06:35)
[2023-03-09] MEDS ORDERED: INSULIN (NOVOLOG) ASPART 100 UNITS/ML 10ML VIAL ONE (08:01)
[2023-03-09 09:29] VITALS: BP 154/77; PULSE 82; RESP 17; TEMP 96.6
[2023-03-09] MEDS: ASPIRIN 81 MG CHEWABLE TABLETS PO SCH (10:26)
[2023-03-09] MEDS: FUROSEMIDE 20 MG TABLET (FP) PO SCH (10:26)
[2023-03-09] MEDS: CLOPIDOGREL BISULFATE 75 MG TABLET (FP) PO SCH (10:26)
[2023-03-09] MEDS: PRENATAL VITAMINS W/ FOLIC ACID TABLET (FP) PO SCH (10:26)
[2023-03-10] MEDS ORDERED: chlordiazePOXIDE HCL 10 MG CAPSULE PO ONE (05:00)
== END 2023-03-09 09:58 | disposition home or self-care (01) | DRG 897 ==
LOC: YASAS 10:00 → Y6N 11:05
PROVIDERS: ADMIT Allergy & Immunology; ATTEND Surgery
PROC: HZ2ZZZZ Detoxification Services for Substance Abuse Treatment (ICD-10-PCS; principal; 2023-03-05)
DX: F10.230 Alcohol dependence with withdrawal, uncomplicated (principal); F31.9 Bipolar disorder, unspecified; I10 Essential (primary) hypertension; E11.9 Type 2 diabetes mellitus without complications; Z79.84 Long term (current) use of oral hypoglycemic drugs; E87.6 Hypokalemia; E66.8 Other obesity; Z68.38 Body mass index [BMI] 38.0-38.9, adult; Z85.46 Personal history of malignant neoplasm of prostate; Z90.79 Acquired absence of other genital organ(s); Z95.1 Presence of aortocoronary bypass graft; Z86.79 Personal history of other diseases of the circulatory system; Z86.73 Personal history of transient ischemic attack (TIA), and cerebral infarction without residual deficits; Z99.89 Dependence on other enabling machines and devices; Z87.09 Personal history of other diseases of the respiratory system; Z88.0 Allergy status to penicillin; Z88.8 Allergy status to other drugs, medicaments and biological substances; Z91.041 Radiographic dye allergy status
CPT/HCPCS: 36415; 80053; 82310; 82962; 84132; 85027; 86780; 87811; 93005; 93010; C9803-CS; U0003; U0005